=== PATIENT | male | born 1950 | race Caucasian/White ===

== ENCOUNTER 2022-06-18 14:04 | Emergency (ER) | payer OTHER ==
[2022-06-18 14:25] LABS: Hematocrit 39.5 % (39.6-49.0); MCV 83.9 fL (80-100); RBC Red Blood Cell Count 4.71 M/uL (4.33-5.43)
[2022-06-18 14:33] LABS: Protime INR 1.07
--- NOTE | 2022-06-18 14:34 | RAD REPORT ---
EXAM DESCRIPTION: RADChest Single View06/18/2022 2:19 pm CLINICAL HISTORY: CHEST PAIN COMPARISON: Head C Spine Cap Wo Con dated 06/18/2022 TECHNIQUE: Portable AP view of the chest. FINDINGS: The lungs are clear. No pneumothorax or effusion. The cardiomediastinal contours are unrem arkable. IMPRESSION: No acute cardiopulmonary process.
[2022-06-18 14:47] LABS: Potassium 4.8 mEq/L (3.5-5.1); Troponin High Sensitivity 8.9 pg/mL (<58.9)
[2022-06-18] MEDS ORDERED: INSULIN -REGULAR HUMAN 50 UNIT/0.5 ML ML ONE (15:07)
--- NOTE | 2022-06-18 15:25 | RAD REPORT ---
EXAM DESCRIPTION: CT - Head C Spine Cap Wo Con - 06/18/2022 2:34 pm CLINICAL HISTORY: fall COMPARISON: No comparisons TECHNIQUE: Head and cervical spine CT images were obtained without IV contrast. Chest, abdomen, and pelvis CT images were obtained also without IV contrast. Multiplanar reformats were generated and rev iewed. All CT scans are performed using dose optimization technique as appropriate and may include automated exposure control or mA/KV adjustment according to patient size. FINDINGS: CT HEAD: No intracranial hemorrhage, mass effect, or edema. No evidence of acute territorial infarct. No midli ne shift or abnormal fluid collection. The ventricles are normal in caliber and configuration for age . Basal cisterns are patent. Mastoid air cells are clear. Up to moderate mucosal thickening with aera geoffrey secretions in the left sphenoid sinus. Diminutive volume of the left maxillary sinus, with wall t hickening suggesting sequelae of chronic sinusitis. No acute skull fracture. CT CERVICAL SPINE: No acute cervical spine fracture or subluxation. Vertebral body heights are well maintained. Facet efrain ints are normal in alignment. No hyperattenuating canal hematoma. Prevertebral and paraspinous soft t issues are unremarkable. CT CHEST: No pneumothorax, pulmonary contusion or pleural fluid collection. No mediastinal hematoma and the aor ta and pulmonary arteries are unremarkable. No chest will mass or abnormal axillary finding. No displ aced rib fracture or other significant bony finding. CT ABDOMEN/ PELVIS: No evidence of traumatic injury to solid abdominal viscera. Gallbladder and biliary tree are unremark able. No bowel injury or significant finding. No free air, free fluid or abnormal fat stranding. No u rinary bladder abnormality. No significant bony finding. IMPRESSION: No acute traumatic findings in the head, cervical spine, chest, abdomen, or pelvis. Up to moderate inflammatory mucosal thickening in the paranasal sinuses.
[2022-06-18] MEDS ORDERED: ACETAMINOPHEN 500 MG TAB ONE (16:06)
--- NOTE | 2022-06-18 16:28 | ER ---
Nurse's Notes [facility] Name: Giovanni Lopez Age: 72 yrs Sex: Male : 1950 Arrival Date: 06/18/2022 Time: 14:05 Bed 6 Private MD: Diagnosis: Fall on same level, unspecified;Chest pain, unspecified-from fall;Laceration without foreign body of right hand, initial encounter Presentation: 06/18 14:01 Chief complaint: EMS states: Mechanical fall from standing to the ground, c/o left jl7 chest wall/rib pain with palpation and deep breath; skin tear to right hand, abrasion to lower lip. Care prior to arrival: None. Mechanism of Injury: Fall from standing position. Trauma event details: Injury occurred in the [facility], Injury occurred: in a public building. Injury occurred: June 18, 2022 Injury occurred at: 13:20. 14:01 Acuity: SOBEIDA 2 jl7 14:01 Method Of Arrival: EMS: [facility] jl7 14:14 Coronavirus screen: Client indicates they have traveled out of the [place] in the last 14 ss days. Ebola Screen: Patient denies exposure to infectious person. Patient denies travel to an Ebola-affected area in the 21 days before illness onset. Initial Sepsis Screen: Does the patient meet any 2 criteria? No. Patient's initial sepsis screen is negative. Does the patient have a suspected source of infection? No. Patient's initial sepsis screen is negative. Risk Assessment: Do you want to hurt yourself or someone else? Patient reports no desire to harm self or others. Onset of symptoms was June 18, 2022. Trauma Activation: Alert Physician: ED Physician; Name: Elvin; Notified At: 14:01; Arrived At: 14:01 Physician: General Surgeon; Name: ; Notified At: 14:01; Arrived At: Physician: Radiology; Name: Sabi; Notified At: 14:01; Arrived At: 14:02 Physician: Respiratory; Name: ; Notified At: 14:01; Arrived At: Physician: Lab; Name: ; Notified At: 14:01; Arrived At: Historical: - Allergies: 14:17 No Known Allergies; jl7 - Home Meds: 14:17 atorvastatin oral [Active]; Allopurinol Oral [Active]; Lisinopril Oral [Active]; jl7 Furosemide Oral [Active]; Glipizide Oral [Active]; cholecalciferol (vitamin D3) oral [Active]; amlodipine oral [Active]; pioglitazone oral [Active]; - PMHx: 14:17 Hypercholesterolemia; Gout; Hypertensive disorder; CHF; Diabetes mellitus; jl7 - Immunization history: Last tetanus immunization: - up to date. < 5 years ago. - Social history:: Smoking status: Patient denies any tobacco usage or history of. Screenin:01 Tuberculosis screening: No symptoms or risk factors identified. jl7 14:15 Abuse screen: Denies threats or abuse. Denies injuries from another. 14:22 [facility] ED Fall Risk Assessment (Adult) History of falling in the last 3 months, jl7 including since admission Yes- single mechanical fall (1 pt) Confusion or Disorientation No (0 pts) Intoxicated or Sedated No (0 pts) Impaired Gait No (0 pts) Mobility Assist Device Used No (0 pt) Altered Elimination No (0 pt) Score/Fall Risk Level 0 - 2 = Low Risk Oriented to surroundings, Maintained a safe environment, Educated pt \T\ family on fall prevention, incl call for assistance when getting out of bed, Assessed \T\ reinforced patient's understanding of fall precautions, Hourly rounding (assess needs \T\ fall precautionary measures) done. Nutritional screening: No deficits noted. Primary Survey: 14:01 NO uncontrolled hemorrhage observed. Breathing/Chest: Respiratory effort: spontaneous, jl7 shallow. Circulation: Hemorrhage: No external hemorrhage noted. Pulses: palpable right radial artery and left radial artery. Skin color: pink, Skin temperature: warm. Disability Client is alert. Exposure/Environment: All clothing and personal items were removed. Forensic evidence collection is not deemed to be indicated at this time. Items placed in patient belonging bag. There is no evidence of uncontrolled external bleeding. Obvious injury(ies) are noted at this time: skin tear to right hand A warming method has been applied: A warm blanket has been provided to the patient. Assessment: 14:01 General: Appears in no apparent distress. uncomfortable, Behavior is calm, cooperative, jl7 appropriate for age. Pain: Complains of pain in left chest wall/ribs Pain currently is 2 out of 10 on a pain scale. Neuro: Level of Consciousness is awake, alert, obeys commands, Oriented to person, place, time, situation. Cardiovascular: Patient's skin is warm and dry. Respiratory: Reports pain with respiration Airway is patent Respiratory effort is even, unlabored, Respiratory pattern is regular, symmetrical. Derm: Skin is pink, warm \T\ dry. 15:00 Reassessment: Patient appears in no apparent distress at this time. Patient and/or hb family updated on plan of care and expected duration. Pain level reassessed. Patient is alert, oriented x 3, equal unlabored respirations, skin warm/dry/pink. 16:00 Reassessment: Patient appears in no apparent distress at this time. Patient and/or hb family updated on plan of care and expected duration. Pain level reassessed. Patient is alert, oriented x 3, equal unlabored respirations, skin warm/dry/pink. Vital Signs: 14:01 BP 140 / 61; Pulse 100; Resp 19 S; Temp 97.9(O); Pulse Ox 99% on R/A; Weight 113.35 kg; jl7 Height 5 ft. 10 in. ; Pain 5/10; 14:14 BP 140 / 61; Pulse 99; Resp 20; Temp 98.6(TE); Pulse Ox 98% on R/A; Pain 2/10; ss 15:09 BP 140 / 69; Pulse 98; Resp 18; Pulse Ox 99% on R/A; hb 16:12 BP 16 / 62; Pulse 95; Resp 18; Pulse Ox 97% on R/A; hb 14:01 Body Mass Index 35.86 (113.35 kg, 177.8 cm) jl7 14:01 Pain Scale: Adult jl7 14:14 Pain Scale: Adult ss Bertah Coma Score: 14:01 Eye Response: spontaneous(4). Motor Response: obeys commands(6). Verbal Response: jl7 oriented(5). Total: 15. 15:09 Eye Response: spontaneous(4). Motor Response: obeys commands(6). Verbal Response: ss oriented(5). Total: 15. Trauma Score (Adult): 14:01 Eye Response: spontaneous(1); Verbal Response: oriented(1); Motor Response: obeys jl7 commands(2); Systolic BP: > 89 mm Hg(4); Respiratory Rate: 10 to 29 per min(4); Neely Score: 15; Trauma Score: 12 15:09 Eye Response: spontaneous(1); Verbal Response: oriented(1); Motor Response: obeys ss commands(2); Systolic BP: > 89 mm Hg(4); Respiratory Rate: 10 to 29 per min(4); Neely Score: 15; Trauma Score: 12 16:12 Eye Response: spontaneous(1); Verbal Response: oriented(1); Motor Response: obeys hb commands(2); Systolic BP: > 89 mm Hg(4); Respiratory Rate: 10 to 29 per min(4); Neely Score: 15; Trauma Score: 12 ED Course: 14:01 Thermoregulation: warm blanket given to patient. jl7 14:01 Patient has correct armband on for positive identification. Placed in gown. Bed in low jl7 position. Call light in reach. Side rails up X 1. 14:05 Patient arrived in ED. hb 14:05 Nav Hand PA is PHCP. cp 14:05 Marco Antonio Oconnor MD is Attending Physician. cp 14:10 Triage completed. jl7 14:13 Catarina Vaughan, RN is Primary Nurse. ss 14:13 Inserted saline lock: 20 gauge in right antecubital area, using aseptic technique. ss Blood collected. Patient maintains SpO2 saturation greater than 95% on room air. 14:17 Arm band placed on right wrist. jl7 14:21 XRAY Chest (1 view) In Process Unspecified. EDMS 14:36 CT Traumagram (Head C Spine CAP wo con) In Process Unspecified. EDMS 15:55 XRAY Hand RIGHT 3 View In Process Unspecified. EDMS Administered Medications: 15:11 Drug: Insulin Regular Human IVP 10 units {Co-Signature: hitesh (Catarina Vaughan RN).} Route: hb IVP; Site: right antecubital; 16:11 Drug: Acetaminophen PO 1000 mg Route: PO; hb Medication: 14:22 VIS not applicable for this client. jl7 Point of Care Testing: Blood Glucose: 16:11 Blood Glucose: 313 mg/dL; hb Ranges: Outcome: 16:28 Discharge ordered by MD. cp Signatures: Dispatcher [employer] EDCatarina Rodriguez RN RN ss Nav Hand PA PA cp Baxter, Heather, RN RN Dm Flannery RN RN jl7 Catarina Vaughan RN ss Corrections: (The following items were deleted from the chart) 16:12 16:12 Reassessment: Patient appears in no apparent distress at this time. Patient hb and/or family updated on plan of care and expected duration. Pain level reassessed. Patient is alert, oriented x 3, equal unlabored respirations, skin warm/dry/pink. hb 16:13 15:09 BP 140 / 69; Pulse 98bpm; Resp 18bpm; Pulse Ox 99% RA; ss hb 16:13 16:12 BP 146 / 62; Pulse 95bpm; Resp 18bpm; Pulse Ox 97% RA; hb hb
--- NOTE | 2022-06-18 16:29 | EDPHYS ---
Physician Documentation [facility] Name: Giovanni Lopez Age: 72 yrs Sex: Male : 1950 Arrival Date: 06/18/2022 Time: 14:05 Bed 6 Private MD: ED Physician Marco Antonio Oconnor HPI: 06/18 14:10 This 72 yrs old Male presents to ER via EMS with complaints of Fall Injury. cp Historical: - Allergies: 14:17 No Known Allergies; jl7 - Home Meds: 14:17 atorvastatin oral [Active]; Allopurinol Oral [Active]; Lisinopril Oral [Active]; jl7 Furosemide Oral [Active]; Glipizide Oral [Active]; cholecalciferol (vitamin D3) oral [Active]; amlodipine oral [Active]; pioglitazone oral [Active]; - PMHx: 14:17 Hypercholesterolemia; Gout; Hypertensive disorder; CHF; Diabetes mellitus; jl7 - Immunization history: Last tetanus immunization: - up to date. < 5 years ago. - Social history:: Smoking status: Patient denies any tobacco usage or history of. Vital Signs: 14:01 BP 140 / 61; Pulse 100; Resp 19 S; Temp 97.9(O); Pulse Ox 99% on R/A; Weight 113.35 kg; jl7 Height 5 ft. 10 in. ; Pain 5/10; 14:14 BP 140 / 61; Pulse 99; Resp 20; Temp 98.6(TE); Pulse Ox 98% on R/A; Pain 2/10; ss 15:09 BP 140 / 69; Pulse 98; Resp 18; Pulse Ox 99% on R/A; hb 16:12 BP 16 / 62; Pulse 95; Resp 18; Pulse Ox 97% on R/A; hb 14:01 Body Mass Index 35.86 (113.35 kg, 177.8 cm) jl7 14:01 Pain Scale: Adult jl7 14:14 Pain Scale: Adult ss [place] Coma Score: 14:01 Eye Response: spontaneous(4). Motor Response: obeys commands(6). Verbal Response: jl7 oriented(5). Total: 15. 15:09 Eye Response: spontaneous(4). Motor Response: obeys commands(6). Verbal Response: ss oriented(5). Total: 15. Trauma Score (Adult): 14:01 Eye Response: spontaneous(1); Verbal Response: oriented(1); Motor Response: obeys jl7 commands(2); Systolic BP: > 89 mm Hg(4); Respiratory Rate: 10 to 29 per min(4); [place] Score: 15; Trauma Score: 12 15:09 Eye Response: spontaneous(1); Verbal Response: oriented(1); Motor Response: obeys ss commands(2); Systolic BP: > 89 mm Hg(4); Respiratory Rate: 10 to 29 per min(4); [place] Score: 15; Trauma Score: 12 16:12 Eye Response: spontaneous(1); Verbal Response: oriented(1); Motor Response: obeys hb commands(2); Systolic BP: > 89 mm Hg(4); Respiratory Rate: 10 to 29 per min(4); Bertha Score: 15; Trauma Score: 12 MDM: 14:08 Patient medically screened. 06/18 14:07 Order name: Basic Metabolic Panel; Complete Time: 14:49 06/18 14:49 Interpretation: Normal except: NA 132; GLUC 326; BUN 56; CRE 2.17; GFR 32. 06/18 14:07 Order name: CBC with Diff; Complete Time: 14:49 06/18 14:52 Interpretation: Normal except: WBC 12.30; HGB 12.7; HCT 39.5; RDW 16.5; NEUT A 8.3; MPV cp 7.0. 06/18 14:07 Order name: PT-INR; Complete Time: 14:49 06/18 14:07 Order name: Troponin HS; Complete Time: 14:49 06/18 14:07 Order name: EKG; Complete Time: 14:09 06/18 14:07 Order name: Cardiac monitoring; Complete Time: 14:14 06/18 14:07 Order name: EKG - Nurse/Tech; Complete Time: 14:51 cp 06/18 14:07 Order name: IV Saline Lock; Complete Time: 14:13 cp 06/18 14:07 Order name: Labs collected and sent; Complete Time: 14:13 06/18 14:07 Order name: O2 Per Protocol; Complete Time: 14:13 06/18 14:07 Order name: O2 Sat Monitoring; Complete Time: 14:13 cp 06/18 14:07 Order name: Ptt, Activated; Complete Time: 14:49 cp 06/18 14:07 Order name: XRAY Chest (1 view); Complete Time: 14:49 cp 06/18 15:15 Interpretation: Report review. 06/18 14:18 Order name: CT Traumagram (Head C Spine CAP wo con); Complete Time: 15:52 cp 06/18 14:52 Order name: XRAY Hand RIGHT 3 View cp 06/18 16:27 Order name: Vital Signs: please update 06/18 16:21 Order name: Glucose, Ancillary Testing; Complete Time: 16:23 EDMS 06/18 16:23 Interpretation: Reviewed. cp Administered Medications: 15:11 Drug: Insulin Regular Human IVP 10 units {Co-Signature: ss (Catarina Vaughan RN).} Route: hb IVP; Site: right antecubital; 16:11 Drug: Acetaminophen PO 1000 mg Route: PO; hb Point of Care Testing: Blood Glucose: 16:11 Blood Glucose: 313 mg/dL; hb Ranges: Critical Glucose Levels:Adult <50 mg/dl or >400 mg/dl <40 mg/dl or >180 mg/dl Disposition Summary: 06/18/22 16:28 Discharge Ordered Location: Home cp Problem: new cp Symptoms: have improved cp Condition: Stable cp Diagnosis - Fall on same level, unspecified cp - Chest pain, unspecified - from fall cp - Laceration without foreign body of right hand, initial encounter cp Followup: cp - With: Private Physician - When: 2 - 3 days - Reason: Recheck today's complaints Forms: - Medication Reconciliation Form cp - Thank You Letter cp - Antibiotic Education cp - Prescription Opioid Use cp Signatures: Dispatcher [employer] EDMS Nav Hand PA PA cp Joann Pederson RN RN Dm Ovalles RN RN jl7 Catarina Vaughan RN ss Corrections: (The following items were deleted from the chart) 14:26 14:08 Head C Spine CAP W Con+[email or web address].[email or web address] ordered. EDMS EDMS
--- NOTE | 2022-06-18 16:58 | RAD REPORT ---
EXAM DESCRIPTION: RAD - Hand Right 3 View - 06/18/2022 3:53 pm CLINICAL HISTORY: PAIN COMPARISON: No comparisons TECHNIQUE: Right hand, 3 views. FINDINGS: No fracture is identified. There is no dislocation or periosteal reaction noted. No foreign body or other soft tissue abnormalit y. Ectatic fraying along the ring finger proximal phalanx limits evaluation of some of the bony deta ils. Vascular calcifications. At least moderate degenerative changes at the thumb base. IMPRESSION: No acute osseous abnormality. Moderate degenerative changes at thumb base.
[2022-06-18 17:55] VITALS: TEMP 98.6
[2022-06-18 17:58] VITALS: BP 129/62; O2SAT 97
--- NOTE | 2022-06-19 17:36 | EKG ---
Test Date: 2022-06-18 Test Time: 14:42:35 Administrative Nursing Supervisor: SB MEASUREMENT RESULTS: Intervals: Rate: 100 NC: 138 QRSD: 78 QT: 350 QTc: 451 [place]: P: 76 NC: 138 QRS: -31 T: 90 INTERPRETIVE STATEMENTS: Normal sinus rhythm Left axis deviation Septal infarct, age undetermined Abnormal ECG No previous ECG available for comparison Electronically Signed On 06-19-22 17:35:05 CDT by Daryl Ochoa
== END 2022-06-18 16:46 | disposition home or self-care (01) ==
LOC: ER 14:04
DX: R07.89 Other chest pain (principal); S61.411A Laceration without foreign body of right hand, initial encounter; W18.30XA Fall on same level, unspecified, initial encounter; I10 Essential (primary) hypertension; I50.9 Heart failure, unspecified; E11.9 Type 2 diabetes mellitus without complications
CPT/HCPCS: 93005; 85025; 80048; 36415; 85610; 82565; 82947; 85730; 84484; 70450; 71250; 72125; 71045; 73130; 96374; 99284; J1815

== ENCOUNTER 2024-02-01 10:26 | Emergency (ER) | payer MEDICARE ==
--- OUTSIDE RECORDS SUMMARY | 2024-02-01 10:30 | XMS REPORT | Continuity of Care Document ---
Author Name Unknown Address [address] [facility] [address] [place] [address] [facility] thconnect Address [address] 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 Name Role Phone [place] Beck [facility] Primary Car e Physician Unavailable JORDAN KAUFFMAN Attending Clinician Unavailabl e Doctor Unassigned, Woody Attending Clinician U Vikram Hinton MD Attending Clinician [phone] Nella DE JESUS Attending Clinician Unavailable Nella Thurston Attending Clinician [phone] Tiff Arenas Attending Clinician Nella DE JESUS Admitting Clinician Unavailable Payers Payer Name Policy Type Policy Number Effective Date Expirati on Date Source MEDICARE PART A \\T\\ B [id number] 2016 00:00:00 [facility] [id number] 2017 00:00:00 [employer] MEDIC[employer] ADVANTAGE PLAN [id number] [employer] (MEDICARE REPLACEMENT HMO) [id number] 2023 00:00:00 Problems Condition Name Condition Details Condition Category Status Onset Date Resolution Date Last Treatment Date Treating Clinician Comments Source Mild hyperchole sterolemia Mild hyperchole sterolemia Disease Active 2015-04 00:00: 00 [facility] Gout Gout Disease Active 04-28 00:00: 00 [facility] Hypertensi on Hypertensi on Disease Active 04-28 00:00: 00 [facility] Diabetes Diabetes Disease Active 04-28 00:00: 00 [facility] Allergies, Adverse Reactions, Alerts Allergy Name Allergy Type Status Severity Reaction(s) Onset Date Inactive Date Treating Clinician Comments Source Sulfa (Sulfona mide Antibiot ics) Propensi ty to adverse reaction s Active Unknown - See comments 04-28 00:00: 00 [facility] Codeine Propensi ty to adverse reaction s Active Unknown - See comments 04-28 00:00: 00 [facility] Sulfa (Sulfona mide Antibiot ics) Propensi ty to adverse reaction s Active Unknown - See comments 04-28 00:00: 00 [facility] CODEINE DRUG INGREDI Active Unknown-Cmnt 04-28 00:00: 00 [facility] SULFA (SULFONA MIDE ANTIBIOT ICS) Drug Class Active Unknown-Cmnt 04-28 00:00: 00 [facility] Social History Social Habit Start Date Stop Date Quantity Comments Source Gender identity [facility] Sexual orientation U [facility] Exposure to SARS-CoV-2 (event) Not sure [facility] History of tobacco use Snuff User [facility] History SDOH Alcohol Frequency [facility] History SDOH Alcohol Std Drinks [facility] History SDOH Alcohol Binge [facility] Alcohol intake 2021-10-11 00:00:00 2021-10-11 00:00:00 0 /d [facility] History of Social function 2021-10-11 00:00:00 2021-10-11 00:00:00 [facility] Tobacco Comment 2015-04-28 00:00:00 2015-04-28 00:00:00 1 can lasts 3-4 days; 30 years [facility] Alcohol Comment 2015-04-28 00:00:00 2015-04-28 00:00:00 rare [facility] Cigarettes smoked current (pack per day) - Reported 2015-04-28 00:00:00 2015-04-28 00:00:00 [facility] Cigarette pack-years 2015-04-28 00:00:00 2015-04-28 00:00:00 [facility] Tobacco use and exposure 2015-04-28 00:00:00 2015-04-28 00:00:00 User of smokeless tobacco [facility] Sex Assigned At 1950 00:00:00 1950 00:00:00 [facility] Smoking Status Start Date Stop Date Source Ex-smoker 2015-04-28 00:00:00 2015-04-28 [facility]00[facility] Ordered Medication Name Filled Medication Name Start Date Stop Date Current Medication? Ordering Clinician Indication Dosage Frequency Signature (SIG) Comments Components Source acetaminoph en (TYLENOL) tablet 1,000 mg 05-23 02:15: 00 05-23 02:08 :00 No 1000mg 1,000 mg, Oral, ONCE, 1 dose, On 05/22/21 at 2015, [facility] HYDROcodone -acetaminop hen (NORCO) 10-325 mg tablet 1 tablet 2019-04 05:15: 00 02-08 04:13 :00 No 1{tbl} 1 tablet, Oral, ONCE NOW, 1 dose, 02/08/20 at 2315, [facility] ondansetron (ZOFRAN (PF)) injection 4 mg 2019-04 03:45: 00 02-08 02:52 :00 No 4mg 4 mg, Slow IV Push, ONCE, 1 dose, 02/08/20 at 2145, [facility] morpHINE injection 4 mg 2019-04 03:45: 00 02-08 02:52 :00 No 4mg 4 mg, Slow IV Push, ONCE, 1 dose, 02/08/20 at 2145, [facility] traMADoL (ULTRAM) 50 mg tablet 2019-04 00:00: 00 02-15 05:59 :00 No [id number] 100mg Take 2 tablets by mouth every 6 (six) hours as needed for Pain (scale 7-10) for up to 7 days. Indication s: acute pain [facility] LISINOPRIL 40 mg tablet 2016-04 00:00: 00 Yes TAKE 1 TABLET BY MOUTH EVERY MORNING [facility] lisinopril (PRINIVIL,Z ESTRIL) 40 mg tablet 2015-04 00:00: 00 Yes [id number] 40mg Take 1 tablet by mouth every morning. [facility] glipiZIDE XL (GLUCOTROL XL) 5 mg 24 hr tablet 2015-04 00:00: 00 Yes [id number] TAKE 1 TABLET BY MOUTH DAILY WITH BREAKFAST [facility] metFORMIN (GLUCOPHAGE ) 500 mg tablet 2015-04 00:00: 00 Yes [id number] 500mg Take 1 tablet by mouth 2 (two) times daily. [facility] atorvastati n (LIPITOR) 10 mg tablet 2015-04 00:00: 00 Yes [id number] 10mg Take 1 tablet by mouth at bedtime. [facility] Vital Signs Vital Name Observation Time Observation Value Comments S ource Systolic blood pressure 2021-05-23 02:00:00 157 mm[Hg] [facility] Diastolic blood pressure 2021-05-23 02:00:00 74 mm[Hg] [facility] Heart rate 2021-05-23 02:00:00 87 /min [facility] Respiratory rate 2021-05-23 02:00:00 18 /min [facility] Oxygen saturation in Arterial blood by Pulse oximetry 2021-05-23 02:00:00 98 /min [facility] Body temperature 2021-05-22 23:20:00 36.67 Eveline [facility] Body height 2021-05-22 23:20:00 177.8 cm [facility] Body weight 2021-05-22 23:20:00 108.863 kg [facility] BMI 2021-05-22 23:20:00 34.44 kg/m2 [facility] Systolic blood pressure 2020-02-09 02:56:00 158 mm[Hg] [facility] Diastolic blood pressure 2020-02-09 02:56:00 65 mm[Hg] [facility] Heart rate 2020-02-09 02:56:00 89 /min [facility] Respiratory rate 2020-02-09 02:56:00 18 /min [facility] Oxygen saturation in Arterial blood by Pulse oximetry 2020-02-09 02:56:00 98 /min [place] [facility] BMI 2020-02-09 01:19:00 33.72 kg/m2 [facility] Body temperature 2020-02-09 01:19:00 37.11 Eveline [facility] Body height 2020-02-09 01:19:00 177.8 cm [facility] Body weight 2020-02-09 01:19:00 106.595 kg [facility] Procedures Procedure Date / Time Performed Performing Clinician Source AUTHORIZATION FOR RELEASE OF PHI 2022-09-29 05:01:00 Doctor Unassigned, Woody [facility] DME/SUPPLY JUSTIFICATION 2022-09-14 05:01:00 Doc tor Unassigned, Woody [facility] URINALYSIS 2021-05-23 00:20:00 [facility] 2021-05-23 00:16:00 Nella De Jesus [facility] COVID-19 (ID NOW RAPID TESTING) 2021-05-23 00:16:00 Nella De Jesus [facility] MAGNESIUM 2021-05-23 00:16:00 [facility] TROPONIN I 2021-05-23 00:16:00 [facility] COMP. METABOLIC PANEL ([id number]) 2021-05-23 00:16:00 Nella De Jesus [facility] CBC WITH DIFF 2021-05-23 00:16:00 Nella De Jesus [facility] XR CHEST 1 VW 2021-05-22 23:55:42 Nella De Jesus [facility] CONSENT/REFUSAL FOR DIAGNOSIS AND TREATMENT 2021-05-22 23:13:29 Doctor Unassigned, Woody [facility] NOTICE OF PRIVACY PRACTICES 2021-05-22 23:13:08 Doctor Unassigned, Woody [facility] CT ABDOMEN PELVIS WO CONTRAST 2020-02-09 03:12:47 Tiff Vance [facility] XR CHEST 1 VW 2020-02-09 02:49:18 Tiff Vance [facility] XR RIBS 3 VW RIGHT 2020-02-09 02:49:18 Wendie Vance [facility] URINALYSIS 2020-02-09 02:02:00 Tiff Vance [facility] CONSENT/REFUSAL FOR DIAGNOSIS AND TREATMENT 2020-02-09 01:13:03 Doctor Unassigned, Woody [facility] NOTICE OF PRIVACY PRACTICES 2020-02-09 01:12:44 Doctor Unassigned, Woody [facility] Encounters Start Date/Time End Date/Time Encounter Type Admission Type Attending [facility] Care Facility Care Department Encounter ID Source 2021-01-29 03:56:53 Emergency [facility] [id number] [facility] 2023-09-27 00:00:00 2023-09-27 00:00:00 Outpatient JORDAN AGUILA [facility] [id number] [facility] 2023-02-23 00:00:00 2023-02-23 00:00:00 Outpatient [facility] [id number] [facility] 2023-01-31 00:00:00 2023-01-31 00:00:00 [facility] [id number] [facility] 2023-01-16 00:00:00 2023-01-16 00:00:00 Outpatient [facility] [id number] [facility] 2022-09-29 00:00:00 2022-09-29 00:00:00 Orders Only Doctor Unassigned, Woody [facility] [id number] [facility] 2022-09-14 00:00:00 2022-09-14 00:00:00 Orders Only Doctor Unassigned, Woody [facility] [id number] [facility] 2022-09-13 00:00:00 2022-09-13 00:00:00 Telephone Vikram Millan [facility] [id number] [facility] 2021-05-22 17:33:00 2021-05-22 20:14:00 Emergency X Nella DE JESUS [facility] ERT [id number] [facility] 2021-05-22 17:33:00 2021-05-22 20:14:00 Emergency Nella De Jesus [facility] [id number] [facility] 2020-02-08 19:21:00 2020-02-08 22:42:00 Emergency Tiff Vance [facility] [id number] [facility] Results Test Description Test Time Test Comments Results Result Co mments Source [facility] [id number] 01:01:15* Test Item Value Reference Range Interpretation Comme nts NT-proBNP (test code = 6183553386) 403 pg/mL See_Comment H [Automated message] The system which generated this result transmitted reference range: <=125. The reference range was not used to interpret this result as normal/abnormal. EUGENIA (test code = EUGENIA) Biotin has been reported to cause a negative bias, interpret results relative to patient's use of biotin. Lab Interpretation (test code = 91178-6) Abnormal [facility]22-[facility]-21 00:52:57* Test Item Value Reference Range Interpretation Comme nts MAGNESIUM (test code = 0315145787) 1.8 mg/dL 1.7-2.4 Lab Interpretation (test cod e = 89512-0) Normal [facility] MET[facility]OLIC PAN[facility] (82314)2021-05-23 00:52:37* Test Item Value Reference Range Interpretation Comme nts NA (test code = 2073284096) 134 mmol/L 135-145 L K (test code = 4827519670) 5.1 mmol/L 3.5-5.0 H CL (test code = 8904790847) 105 mmol/L 98-108 CO2 TOTAL (test code = 1383443280) 20 mmol/L 23-31 L AGAP (test code = 2355043324) 2-16 BUN (test code = 3250619746) 50 mg/dL 7-23 H GLUCOSE (test code = 1603250155) 301 mg/dL 70-110 H CREATININE (test code = 1373607438) 1.97 mg/dL 0.60-1.25 H TOTAL BILI (test code = 8534976381) 0.5 mg/dL 0.1-1.1 CALCIUM (test code = 7702667094) 9.1 mg/dL 8.6-10.6 T PROTEIN (test code = 7904851480) 8.2 g/dL 6.3-8.2 ALBUMIN (test code = 1589493030) 4.9 g/dL 3.5-5.0 ALK PHOS (test code = 2608269064) 99 U/L 34-122 ALTv (test code = 1742-6) 21 U/L 5-50 AST(SGOT) (test code = 9764071289) 24 U/L 13-40 eGFR (test code = 5376043582) mL/min/1.73m2 EUGENIA (test code = EUGENIA) Association of Glomerular Filtration Rate (GFR) and Staging of Kidney Disease* + --+ --+ ------+| GFR (mL/min/1.73 m2) ?| With Kidney Damage ?| ?Without Kidney Damage+ --------+ --------+ +| ?>90 ?| ?Stage one ?| ? Normal ?+ ---+ ---+ -------+| ?60-89 ?| ?Stage two ?| ? Decreased GFR ? + --+ --+ ------+| ?30-59 ?| ?Stage three ?| ? Stage three ? + --+ --+ ------+| ?15-29 ?| ?Stage four ? | ? Stage four ?+ ---+ ---+ -------+| ?<15 (or dialysis) ? ?| ?Stage five ? | ? Stage five ?+ ---+ ---+ -------+ *Each stage assumes the associated GFR level has been in effect for at least three months. ?Stages 1 to 5, with or without kidney disease, indicate chronic kidney disease. Notes: Determination of stages one and two (with eGFR >59mL/min/1.73 m2) requires estimation of kidney damage for at least three months as defined by structural or functional abnormalities of the kidney, manifested by either:Pathological abnormalities or Markers of kidney damage (including abnormalities in the composition of the blood or urine or abnormalities in imaging tests). Lab Interpretation (test code = 65395-1) Abnormal [facility] WITH [id number] 00:42:34* Test Item Value Reference Range Interpretation Comme nts WBC (test code = 6690-2) See_Comment H [Automated Nonpareil] The system which generated this result transmitted reference range: 4.20 - 10.70 10*3/?L. The reference range was not used to interpret this result as normal/abnormal. RBC (test code = 789-8) See_Comment [[employer] Pictures / [employer]] The system which generated this result transmitted reference range: 4.26 - 5.52 10*6/?L. The reference range was not used to interpret this result as normal/abnormal. HGB (test code = 718-7) 12.4 g/dL 12.2-16.4 HCT (test code = 4544-3) 38.4 % 38.4-49.3 MCV (test code = 787-2) 85.0 fL 81.7-95.6 MCH (test code = 785-6) 27.4 pg 26.1-32.7 MCHC (test code = 786-4) 32.3 g/dL 31.2-35.0 RDW-SD (test code = 44570-5) 48.0 fL 38.5-51.6 RDW-CV (test code = 788-0) 15.5 % 12.1-15.4 H PLT (test code = 777-3) See_Comment [Automated messa ge] The system which generated this result transmitted reference range: 150 - 328 10*3/?L. The reference range was not used to interpret this result as normal/abnormal. MPV (test code = 80131-2) 8.7 fL 9.8-13.0 L NRBC/100 WBC (test code = 0673664864) See_Comment [Automated AiMeiWei ssage] The system which generated this result transmitted reference range: 0.0 - 10.0 /100 WBCs. The reference range was not used to interpret this result as normal/abnormal. NRBC x10^3 (test code = 5978556802) <0.01 See_Comment [Automated messa ge] The system which generated this result transmitted reference range: 10*3/?L. The reference range was not used to interpret this result as normal/abnormal. GRAN MAT (NEUT) % (test code = 770-8) 70.6 % IMM GRAN % (test code = 4387299209) 0.70 % LYMPH % (test code = 736-9) 17.7 % MONO % (test code = 5905-5) 8.2 % EOS % (test code = 713-8) 2.4 % BASO % (test code = 706-2) 0.4 % GRAN MAT x10^3(ANC) (test code = 1824793901) 8.91 10*3/uL 1.99-6.95 H IMM GRAN x10^3 (test code = 7246668958) 0.09 10*3/uL 0.00-0.06 H LYMPH x10^3 (test code = 731-0) 2.23 10*3/uL 1.09-3.23 MONO x10^3 (test code = 742-7) 1.04 10*3/uL 0.36-1.02 H EOS x10^3 (test code = 711-2) 0.30 10*3/uL 0.06-0.53 BASO x10^3 (test code = 704-7) 0.05 10*3/uL 0.01-0.09 Lab Interpretation (test code = 88857-9) Abnormal [facility] 02:22:00* Test Item Value Reference Range Interpretation Comme nts APPEARANCE (test code = 1973885796) Clear Clear COLOR (test code = 4392255482) Yellow Yellow PH (test code = 1267701426) 4.8-8.0 SP GRAVITY (test code = 3963930284) 1.003-1.030 GLU U QUAL (test code = 8225884620) 50 mg/dL Normal A BLOOD (test code = 1170166542) 1+ Negative A KETONES (test code = 4021896314) Negative Negative PROTEIN (test code = 2887-8) 30 mg/dL Negative A UROBILIN (test code = 4148576566) Normal Normal BILIRUBIN (test code = 6298152306) Negative Negative NITRITE (test code = 1712029883) Negative Negative LEUK YUMI (test code = 7115602289) Negative Negative RBC/HPF (test code = 8390401302) See_Comment [Automated [employer]ocket Designa ge] The system which generated this result transmitted reference range: 0 - 3 HPF. The reference range was not used to interpret this result as normal/abnormal. WBC/HPF (test code = 5574513405) <1 See_Comment [Automated [employer] ge] The system which generated this result transmitted reference range: 0 - 5 HPF. The reference range was not used to interpret this result as normal/abnormal. BACTERIA (test code = 3579963106) Negative Negative MUCOUS (test code = 2598795145) Slight Negative LPF A SQ EPITH (test code = 1017793654) <1 HPF Lab Interpretation (test code = 29355-4) Abnormal [facility]"
[2024-02-01] MEDS ORDERED: KETOROLAC 30 MG/ML INJ ONE (11:20)
[2024-02-01 11:57] LABS: Specific Gravity 1.012 (1.005-1.030); Sqamous Epithelial None Seen /HPF (None Seen); Urine Bacteria None Seen /HPF (<20); Urine Bilirubin NEGATIVE (Negative); Urine Blood 1+ (Negative); Urine Clarity Clear (Clear); Urine Color Dark-Yellow (Yellow); Urine Culture Reflex Order NOT NEEDED; Urine Glucose TRACE (Negative); Urine Ketones NEGATIVE (Negative); Urine Micro Reflex YN NO BILL MICROSCOPIC; Urine Mucus Slight /HPF (None Seen); Urine Nitrite 1+ (Negative); Urine Protein 2+ (Negative); Urine RBC 21-50 /HPF (None Seen); Urine Urobilinogen Normal (Normal); Urine pH 6.5 (5.0-7.0)
[2024-02-01] MEDS ORDERED: CIPROFLOXACIN HCL 500 MG TAB ONE (12:10)
--- NOTE | 2024-02-01 13:01 | EDPHYS ---
Physician Documentation [facility] Name: Giovanni Lopez Age: 73 yrs Sex: Male : 1950 Arrival Date: 02/01/2024 Time: 10:26 Bed 15 Private MD: ED Physician Antione Del Cid HPI: 01/31 11:51 This 73 yrs old Male presents to ER via Ambulatory with complaints of Urinary ec2 Problem. 11:51 Patient arrives today for dysuria as well as urinary frequency no fevers or chills, no ec2 nausea or vomiting... Historical: - Allergies: 10:45 hydrocodone; aa5 10:45 Sulfa (Sulfonamide Antibiotics); aa5 - PMHx: 10:44 CHF; diabetes mellitus; Gout; Hypercholesterolemia; Hypertensive disorder; aa5 - Immunization history:: Adult Immunizations unknown. - Infectious Disease History:: Denies. - Social history:: Smoking status: Patient denies any tobacco usage or history of. ROS: 11:51 Constitutional: as per hpi ec2 Exam: 11:52 Constitutional: GEN: NAD Head: atraumatic Eyes: EOMI Ears: External ears are ec2 normal. CV: Slight tachycardia LUNGS: no respiratory distress ABD: non-distended SKIN: no evidence of rashes MSK: no evidence of trauma Vital Signs: 10:46 BP 154 / 75; Pulse 105; Resp 20 S; Temp 98(O); Pulse Ox 98% on R/A; Weight 110.22 kg aa5 (R); Height 5 ft. 10 in. (R); 12:14 BP 106 / 65; Pulse 86; Resp 15; Pulse Ox 99% ; ko1 13:05 BP 126 / 71; Pulse 88; Resp 16; Temp 98.4; Pulse Ox 99% ; me1 10:46 Body Mass Index 34.87 (110.22 kg, 177.8 cm) aa5 MDM: 10:48 Medical Screening Exam initiated ec2 11:52 Data reviewed: vital signs. ED course: Patient arrives today for evaluation of dysuria. ec2 Examination is markable for slight tachycardia. Perform straight cath, send urine studies.. 01/31 10:48 Order name: UAM; Complete Time: 12:01 ec2 01/31 11:12 Order name: Cath; Complete Time: 11:46 ec2 11/01 12:05 Order name: Vital Signs; Complete Time: 12:18 ec2 Administered Medications: 11:21 Drug: Ketorolac IM 30 mg IM once Route: IM; Site: left deltoid; ko1 11:51 Follow up: Response: No adverse reaction ko1 12:18 Drug: Ciprofloxacin PO 500 mg PO once Route: PO; ko1 13:03 Follow up: Response: No adverse reaction me1 Disposition Summary: 02/01/24 13:00 Discharge Ordered Condition: Stable ec2 Diagnosis - UTI/ Urinary tract infection, site not specified ec2 Followup: ec2 - With: Private Physician - When: - Reason: Re-evaluation by your physician Discharge Instructions: - Discharge Summary Sheet ec2 - Urinary Tract Infection, Adult ec2 Forms: - Medication Reconciliation Form ec2 - Antibiotic Education ec2 - Prescription Opioid Use ec2 - Patient Portal Instructions ec2 - Leadership Thank You Letter ec2 Prescriptions: - Cipro 500 mg Oral Tablet - take 1 tablet ORAL route every 12 hours for 7 days; 14 tablet; Refills: 0, ec2 Product Selection Permitted Signatures: Dispatcher [employer] Tatianna Beltre RN RN aa5 Sandi Chacko RN RN ko1 Antione Del Cid MD MD ec2 Sabi Palmer RN me1
--- NOTE | 2024-02-01 13:01 | ER ---
Nurse's Notes [facility] Name: Giovanni Lopez Age: 73 yrs Sex: Male : 1950 Arrival Date: 02/01/2024 Time: 10:26 Bed 15 Private MD: Diagnosis: UTI/ Urinary tract infection, site not specified Presentation: 01/31 10:46 Chief complaint: Patient states: burning with urination, suprapubic pain, and inability aa5 to empty bladder, pt states "I can only pee a little bit at a time and I am hurting bad". Coronavirus screen: At this time, the client does not indicate any symptoms associated with coronavirus-19. Ebola Screen: Patient denies travel to an Ebola-affected area in the 21 days before illness onset. Initial Sepsis Screen: Does the patient meet any 2 criteria? HR > 90 bpm. Does the patient have a suspected source of infection? No. Patient's initial sepsis screen is negative. Risk Assessment: Do you want to hurt yourself or someone else? Patient reports no desire to harm self or others. Onset of symptoms was January 2024. 10:46 Method Of Arrival: Ambulatory aa5 10:46 Acuity: SOBEIDA 3 aa5 Historical: - Allergies: 10:45 hydrocodone; aa5 10:45 Sulfa (Sulfonamide Antibiotics); aa5 - PMHx: 10:44 CHF; diabetes mellitus; Gout; Hypercholesterolemia; Hypertensive disorder; aa5 - Immunization history:: Adult Immunizations unknown. - Infectious Disease History:: Denies. - Social history:: Smoking status: Patient denies any tobacco usage or history of. Screenin:00 [facility] ED Fall Risk Assessment (Adult) History of falling in the last 3 months, ko1 including since admission No falls in past 3 months (0 pts) Confusion or Disorientation No (0 pts) Intoxicated or Sedated No (0 pts) Impaired Gait No (0 pts) Mobility Assist Device Used No (0 pt) Altered Elimination No (0 pt) Score/Fall Risk Level 0 - 2 = Low Risk Oriented to surroundings, Maintained a safe environment, Educated pt \\T\\ family on fall prevention, incl call for assistance when getting out of bed, Assessed \\T\\ reinforced patient's understanding of fall precautions, Hourly rounding (assess needs \\T\\ fall precautionary measures) done. Abuse screen: Denies threats or abuse. Denies injuries from another. Nutritional screening: No deficits noted. Tuberculosis screening: No symptoms or risk factors identified. Assessment: 12:05 General: Appears uncomfortable, well developed, well nourished, Behavior is calm, me1 cooperative, appropriate for age, Reports burning with urination, suprapubic pain, and inability to empty bladder, pt states "I can only pee a little bit at a time and I am hurting bad". Pain: Complains of pain in suprapubic area Pain does not radiate. Pain currently is 7 out of 10 on a pain scale. Quality of pain is described as crampy, Pain began gradually, Is continuous. Neuro: Level of Consciousness is awake, alert, obeys commands, Oriented to person, place, time, situation, Appropriate for age. Cardiovascular: Patient's skin is warm and dry. Respiratory: Airway is patent Respiratory effort is even, unlabored, Respiratory pattern is regular, symmetrical. GI: No signs and/or symptoms were reported involving the gastrointestinal system. : Reports inability to void, pain in suprapubic area. EENT: No signs and/or symptoms were reported regarding the EENT system. Derm: Skin is intact, is healthy with good turgor, Skin is pink, warm \\T\\ dry. Musculoskeletal: No signs and/or symptoms reported regarding the musculoskeletal system. Vital Signs: 10:46 BP 154 / 75; Pulse 105; Resp 20 S; Temp 98(O); Pulse Ox 98% on R/A; Weight 110.22 kg aa5 (R); Height 5 ft. 10 in. (R); 12:14 BP 106 / 65; Pulse 86; Resp 15; Pulse Ox 99% ; ko1 13:05 BP 126 / 71; Pulse 88; Resp 16; Temp 98.4; Pulse Ox 99% ; me1 10:46 Body Mass Index 34.87 (110.22 kg, 177.8 cm) aa5 ED Course: 10:29 Patient arrived in ED. im 10:44 Arm band placed on. aa5 10:47 Triage completed. aa5 10:48 Antione Del Cid MD is Attending Physician. ec2 10:54 Sandi Chacko RN is Primary Nurse. ko1 11:45 No provider procedures requiring assistance completed. Urine collected: straight cath ko1 specimen, kalie colored, blood tinged. Straight cath inserted, using sterile technique, 14 Fr. Specimen obtained. Returned kalie urine. Patient tolerated well. 11:46 UAM Sent. ko1 12:00 Patient has correct armband on for positive identification. Allergy band placed. Bed in ko1 low position. Call light in reach. Side rails up X 1. Provided Education on: labs, meds. Pulse ox on. NIBP on. Door closed. Noise minimized. Lights dimmed. Warm blanket given. Pillow given. 13:13 Patient did not have IV access during this emergency room visit. me1 Administered Medications: 11:21 Drug: Ketorolac IM 30 mg IM once Route: IM; Site: left deltoid; ko1 11:51 Follow up: Response: No adverse reaction ko1 12:18 Drug: Ciprofloxacin PO 500 mg PO once Route: PO; ko1 13:03 Follow up: Response: No adverse reaction me1 Medication: 12:00 VIS not applicable for this client. ko1 Output: 12:00 Urine: 1100ml (Straight Cath); Total: 1100ml. ko1 Outcome: 13:00 Discharge ordered by . ec2 13:13 Discharged to home ambulatory, me1 13:13 Condition: stable 13:13 Discharge instructions given to patient, Instructed on discharge instructions, follow up and referral plans. medication usage, Demonstrated understanding of instructions, follow-up care, medications, Prescriptions given X 1, 13:14 Patient left the ED. me1 Signatures: Tatianna Samuel RN RN aa5 Sandi Chacko RN RN ko1 Wanda Rubio Michelle, RN RN me1 Antione Del Cid MD MD ec2 Corrections: (The following items were deleted from the chart) 13:03 10:46 Chief complaint: Patient states: burning with urination, suprapubic pain, and me1 inability to empty bladder, pt states "I can only pee a little bit at a time and I am hurting bad" aa5 13:04 10:46 Chief complaint: Patient states: burning with urination, suprapubic pain, and me1 inability to empty bladder, pt states "I can only pee a little bit at a time and I am hurting bad" me1
[2024-02-01 13:18] VITALS: O2SAT 99
[2024-02-01 13:20] VITALS: BP 126/71; TEMP 98.4
== END 2024-02-01 13:14 | disposition home or self-care (01) ==
LOC: ER 10:26
DX: N39.0 Urinary tract infection, site not specified (principal)
CPT/HCPCS: 51702; 81001; 96372; 99285

== ENCOUNTER 2024-02-02 21:08 | Emergency (ER) | payer MEDICARE ==
--- OUTSIDE RECORDS SUMMARY | 2024-02-02 21:12 | XMS REPORT | Continuity of Care Document ---
Author Name Unknown Address [address] [facility] [address] [place] [address] [facility] thconnect Address [address] [place] [address] Care Team Providers Care Clothes Shaker Name Role Phone KAMAS, [facility] Primary Car e Physician Unavailable JORDAN KAUFFMAN Attending Clinician Unavailabl e Doctor Unassigned, [place] Attending Clinician U Vikram Hinton MD Attending Clinician [phone] Nella DE JESUS Attending Clinician Unavailable Nella Thurston Attending Clinician [phone] Tiff Arenas Attending Clinician [phone] Nella DE JESUS Admitting Clinician Unavailable Payers Payer Name Policy Type Policy Number Effective Date Expirati on Date Source MEDICARE PART A \\T\\ B [id number] 2016 00:00:00 [employer] [facility] [id number] 2017 00:00:00 [employer] MEDIC[employer] ADVANTAGE PLAN [id number] [employer] (MEDICARE REPLACEMENT HMO) [id number] 2023 00:00:00 Problems Condition Name Condition Details Condition Category Status Onset Date Resolution Date Last Treatment Date Treating Clinician Comments Source Mild hyperchole sterolemia Mild hyperchole sterolemia Disease Active 2015-04 00:00: 00 [facility] Gout Gout Disease Active 04-28 00:00: 00 [facility] Hypertensi on Hypertensi on Disease Active 04-28 00:00: 00 [facility] Diabetes Diabetes Disease Active 04-28 00:00: 00 [facility] Allergies, Adverse Reactions, Alerts Allergy Name Allergy Type Status Severity Reaction(s) Onset Date Inactive Date Treating Clinician Comments Source Sulfa (Sulfona mide Antibiot ics) Propensi ty to adverse reaction s Active Unknown - See comments 04-28 00:00: 00 [facility] Codeine Propensi ty to adverse reaction s Active Unknown - See comments 04-28 00:00: 00 [facility] Sulfa (Sulfona mide Antibiot ics) Propensi ty to adverse reaction s Active Unknown - See comments 04-28 00:00: 00 [facility] CODEINE DRUG INGREDI Active Unknown-Cmnt 04-28 00:00: 00 [facility] SULFA (SULFONA MIDE ANTIBIOT ICS) Drug Class Active Unknown-Cmnt 04-28 00:00: 00 [facility] Social History Social Habit Start Date Stop Date Quantity Comments Source Gender identity [facility] Sexual orientation [facility] Exposure to SARS-CoV-2 (event) Not sure [facility] History of tobacco use Snuff User [facility] History SDOH Alcohol Frequency [facility] History SDOH Alcohol Std Drinks [facility] History SDOH Alcohol Binge [facility] Alcohol intake 2021-10-11 00:00:00 2021-10-11 00:00:00 0 /d [facility] History of Social function 2021-10-11 00:00:00 2021-10-11 00:00:00 [facility] Tobacco Comment 2015-04-28 00:00:00 2015-04-28 00:00:00 1 can lasts 3-4 days; 30 years [facility] Alcohol Comment 2015-04-28 00:00:00 2015-04-28 00:00:00 rare [facility] Cigarettes smoked current (pack per day) - Reported 2015-04-28 00:00:00 2015-04-28 00:00:00 [facility] Cigarette pack-years 2015-04-28 00:00:00 2015-04-28 00:00:00 [facility] Tobacco use and exposure 2015-04-28 00:00:00 2015-04-28 00:00:00 User of smokeless tobacco [facility] Sex Assigned At 1950 00:00:00 1950 00:00:00 [facility] Smoking Status Start Date Stop Date Source Ex-smoker 2015-04-28 00:00:00 2015-04-28 00:00:00 [facility] Medications Ordered Medication Name Filled Medication Name Start Date Stop Date Current Medication? Ordering Clinician Indication Dosage Frequency Signature (SIG) Comments Components Source acetaminoph en (TYLENOL) tablet 1,000 mg 05-23 02:15: 00 05-23 02:08 :00 No 1000mg 1,000 mg, Oral, ONCE, 1 dose, On 05/22/21 at 2015, [facility] HYDROcodone -acetaminop hen (NORCO) 10-325 mg tablet 1 tablet 2019-04 05:15: 00 02-08 04:13 :00 No 1{tbl} 1 tablet, Oral, ONCE NOW, 1 dose, 02/08/20 at 2315, [facility] ondansetron (ZOFRAN (PF)) injection 4 mg 2019-04 03:45: 00 02-08 02:52 :00 No 4mg 4 mg, Slow IV Push, ONCE, 1 dose, 02/08/20 at 2145, [facility] morpHINE injection 4 mg 2019-04 03:45: 00 02-08 02:52 :00 No 4mg 4 mg, Slow IV Push, ONCE, 1 dose, 02/08/20 at 2145, [facility] traMADoL (ULTRAM) 50 mg tablet 2019-04 00:00: 00 02-15 05:59 :00 No [id number] 100mg Take 2 tablets by mouth every 6 (six) hours as needed for Pain (scale 7-10) for up to 7 days. Indication s: acute pain [facility] LISINOPRIL 40 mg tablet 2016-04 00:00: 00 Yes TAKE 1 TABLET BY MOUTH EVERY MORNING [facility] lisinopril (PRINIVIL,Z ESTRIL) 40 mg tablet 2015-04 00:00: 00 Yes [id number] 40mg Take 1 tablet by mouth every morning. [facility] glipiZIDE XL (GLUCOTROL XL) 5 mg 24 hr tablet 2015-04 00:00: 00 Yes [id number] TAKE 1 TABLET BY MOUTH DAILY WITH BREAKFAST [facility] metFORMIN (GLUCOPHAGE ) 500 mg tablet 2015-04 00:00: 00 Yes [id number] 500mg Take 1 tablet by mouth 2 (two) times daily. [facility] atorvastati n (LIPITOR) 10 mg tablet 2015-04 00:00: 00 Yes [id number] 10mg Take 1 tablet by mouth at bedtime. [facility] Vital Signs Vital Name Observation Time Observation Value Comments S ource Systolic blood pressure 2021-05-23 02:00:00 157 mm[Hg] [facility] Diastolic blood pressure 2021-05-23 02:00:00 74 mm[Hg] [facility] Heart rate 2021-05-23 02:00:00 87 /min [facility] Respiratory rate 2021-05-23 02:00:00 18 /min [facility] Oxygen saturation in Arterial blood by Pulse oximetry 2021-05-23 02:00:00 98 /min [facility] Body temperature 2021-05-22 23:20:00 36.67 Eveline [facility] Body height 2021-05-22 23:20:00 177.8 cm [facility] Body weight 2021-05-22 23:20:00 108.863 kg [facility] BMI 2021-05-22 23:20:00 34.44 kg/m2 [facility] Systolic blood pressure 2020-02-09 02:56:00 158 mm[Hg] [facility] Diastolic blood pressure 2020-02-09 02:56:00 65 mm[Hg] [facility] Heart rate 2020-02-09 02:56:00 89 /min [facility] Respiratory rate 2020-02-09 02:56:00 18 /min [facility] Oxygen saturation in Arterial blood by Pulse oximetry 2020-02-09 02:56:00 98 /min [place] [facility] BMI 2020-02-09 01:19:00 33.72 kg/m2 [facility] Body temperature 2020-02-09 01:19:00 37.11 Eveline [facility] Body height 2020-02-09 01:19:00 177.8 cm [facility] Body weight 2020-02-09 01:19:00 106.595 kg [facility] Procedures Procedure Date / Time Performed Performing Clinician Source AUTHORIZATION FOR RELEASE OF PHI 2022-09-29 05:01:00 Doctor Unassigned, [place] [facility] DME/SUPPLY JUSTIFICATION 2022-09-14 05:01:00 Doc tor Unassigned, [place] [facility] URINALYSIS 2021-05-23 00:20[facility] 2021-05-23 00:16:00 Nella De Jesus [facility] COVID-19 (ID NOW RAPID TESTING) 2021-05-23 00:16:00 Nella De Jesus [facility] MAGNESIUM 2021-05-23 00:16:00 [facility] TROPONIN I 2021-05-23 00:16:00 [facility] De [facility] COMP. METABOLIC PANEL (11187) 2021-05-23 00:16:00 Nella De Jesus [facility] CBC WITH DIFF 2021-05-23 00:16:00 Nella De Jesus [facility] XR CHEST 1 VW 2021-05-22 23:55:42 Nella De Jesus [facility] CONSENT/REFUSAL FOR DIAGNOSIS AND TREATMENT 2021-05-22 23:13:29 Doctor Unassigned, [place] [facility] NOTICE OF PRIVACY PRACTICES 2021-05-22 23:13:08 Doctor Unassigned, [place] [facility] CT ABDOMEN PELVIS WO CONTRAST 2020-02-09 03:12:47 Tiff Vance [facility] XR CHEST 1 VW 2020-02-09 02:49:18 Tiff Vance [facility] XR RIBS 3 VW RIGHT 2020-02-09 02:49:18 Wendie Vance [facility] URINALYSIS 2020-02-09 02:02:00 Tiff Vance [facility] CONSENT/REFUSAL FOR DIAGNOSIS AND TREATMENT 2020-02-09 01:13:03 Doctor Unassigned, [place] [facility] NOTICE OF PRIVACY PRACTICES 2020-02-09 01:12:44 Doctor Unassigned, [place] [facility] Encounters Start Date/Time End Date/Time Encounter Type Admission Type Attending [facility] Care Facility Care Department Encounter ID Source 2021-01-29 03:56:53 Emergency [facility] [id number] [facility] 2023-09-27 00:00:00 2023-09-27 00:00:00 Outpatient JORDAN AGUILA [facility] [id number] [facility] 2023-02-23 00:00:00 2023-02-23 00:00:00 Outpatient [facility] [id number] [facility] Medical [facility] 2023-01-31 00:00:00 2023-01-31 00:00:00 [facility] [id number] [facility] Medical [facility] 2023-01-16 00:00:00 2023-01-16 00:00:00 Outpatient [facility] [id number] [facility] 2022-09-29 00:00:00 2022-09-29 00:00:00 Orders Only Doctor Unassigned, [place] [facility] [id number] [facility] 2022-09-14 00:00:00 2022-09-14 00:00:00 Orders Only Doctor Unassigned, [place] [facility] [id number] [facility] 2022-09-13 00:00:00 2022-09-13 00:00:00 Telephone Vikram Millan [facility] [id number] [id number] [facility] 2021-05-22 17:33:00 2021-05-22 20:14:00 Emergency X Nella DE JESUS [facility] ERT [id number] [facility] 2021-05-22 17:33:00 2021-05-22 20:14:00 Emergency Nella De Jesus [facility] [id number] [id number] [facility] 2020-02-08 19:21:00 2020-02-08 22:42:00 Emergency Tiff Vance [facility] [id number] [facility] Results Test Description Test Time Test Comments Results Result Co mments Source [facility] [id number] 01:01:15* Test Item Value Reference Range Interpretation Comme nts NT-proBNP (test code = 9868057874) 403 pg/mL See_Comment H [Automated message] The system which generated this result transmitted reference range: <=125. The reference range was not used to interpret this result as normal/abnormal. EUGENIA (test code = EUGENIA) Biotin has been reported to cause a negative bias, interpret results relative to patient's use of biotin. Lab Interpretation (test code = 61925-7) [facility]normal [facility]-21 00:52:57* Test Item Value Reference Range Interpretation Comme nts MAGNESIUM (test code = 6363631044) 1.8 mg/dL 1.7-2.4 Lab Interpretation (test cod e = 53163-0) Normal [facility]OLIC PAN[facility] (11008)2021-05-23 00:52:37* Test Item Value Reference Range Interpretation Comme nts NA (test code = 7451753237) 134 mmol/L 135-145 L K (test code = 9040146354) 5.1 mmol/L 3.5-5.0 H CL (test code = 9522131974) 105 mmol/L 98-108 CO2 TOTAL (test code = 2902402826) 20 mmol/L 23-31 L AGAP (test code = 8246451543) 2-16 BUN (test code = 5351875526) 50 mg/dL 7-23 H GLUCOSE (test code = 6410087854) 301 mg/dL 70-110 H CREATININE (test code = 3893396588) 1.97 mg/dL 0.60-1.25 H TOTAL BILI (test code = 6368286727) 0.5 mg/dL 0.1-1.1 CALCIUM (test code = 6525527080) 9.1 mg/dL 8.6-10.6 T PROTEIN (test code = 7079617395) 8.2 g/dL 6.3-8.2 ALBUMIN (test code = 3534147557) 4.9 g/dL 3.5-5.0 ALK PHOS (test code = 1798584623) 99 U/L 34-122 ALTv (test code = 1742-6) 21 U/L 5-50 AST(SGOT) (test code = 9856347479) 24 U/L 13-40 eGFR (test code = 1256355826) mL/min/1.73m2 EUGENIA (test code = EUGENIA) Association [...] imaging tests). Lab Interpretation (test code = 23579-1) Abnormal [facility] WITH [id number] 00:42:34* Test Item Value Reference Range Interpretation Comme nts WBC (test code = 6690-2) See_Comment H [Automated [employer]] The system which generated this result transmitted reference range: 4.20 - 10.70 10*3/?L. The reference range was not used to interpret this result as normal/abnormal. RBC (test code = 789-8) See_Comment [[employer]] The system which generated this result transmitted [...] 32.3 g/dL 31.2-35.0 RDW-SD (test code = 70625-4) 48.0 fL 38.5-51.6 RDW-CV (test code = 788-0) 15.5 % 12.1-15.4 H PLT (test code = 777-3) See_Comment [Automated messa ge] The system which generated this result transmitted reference range: 150 - 328 10*3/?L. The reference range was not used to interpret this result as normal/abnormal. MPV (test code = 74444-6) 8.7 fL 9.8-13.0 L NRBC/100 WBC (test code = 9528289642) See_Comment [Automated Exinda ssage] The system which generated this result transmitted reference range: 0.0 - 10.0 /100 WBCs. The reference range was not used to interpret this result as normal/abnormal. NRBC x10^3 (test code = 2813620321) <0.01 See_Comment [Automated messa ge] The system which generated this result transmitted reference range: 10*3/?L. The reference range was not used to interpret this result as normal/abnormal. GRAN MAT (NEUT) % (test code = 770-8) 70.6 % IMM GRAN % (test code = 7416083521) 0.70 % LYMPH % (test code = 736-9) 17.7 % MONO % (test code = 5905-5) 8.2 % EOS % (test code = 713-8) 2.4 % BASO % (test code = 706-2) 0.4 % GRAN MAT x10^3(ANC) (test code = 8737134466) 8.91 10*3/uL 1.99-6.95 H IMM GRAN x10^3 (test code = 0066604225) 0.09 10*3/uL 0.00-0.06 H LYMPH x10^3 (test code = 731-0) 2.23 10*3/uL 1.09-3.23 MONO x10^3 (test code = 742-7) 1.04 10*3/uL 0.36-1.02 H EOS x10^3 (test code = 711-2) 0.30 10*3/uL 0.06-0.53 BASO x10^3 (test code = 704-7) 0.05 10*3/uL 0.01-0.09 Lab Interpretation (test code = 68404-8) [facility]normal [facility] 02:22:00* Test Item Value Reference Range Interpretation Comme nts APPEARANCE (test code = 9727286436) Clear Clear COLOR (test code = 2286772577) Yellow Yellow PH (test code = 5510317939) 4.8-8.0 SP GRAVITY (test code = 1834676325) 1.003-1.030 GLU U QUAL (test code = 7779051952) 50 mg/dL Normal A BLOOD (test code = 6521685068) 1+ Negative A KETONES (test code = 0631061970) Negative Negative PROTEIN (test code = 2887-8) 30 mg/dL Negative A UROBILIN (test code = 2941555511) Normal Normal BILIRUBIN (test code = 4388637090) Negative Negative NITRITE (test code = 3220115376) Negative Negative LEUK YUMI (test code = 1971874678) Negative Negative RBC/HPF (test code = 1050437256) See_Comment [Automated [employer] ge] The system which generated this result transmitted reference range: 0 - 3 HPF. The reference range was not used to interpret this result as normal/abnormal. WBC/HPF (test code = 6315280984) <1 See_Comment [Automated [employer]] The system which generated this result transmitted reference range: 0 - 5 HPF. The reference range was not used to interpret this result as normal/abnormal. BACTERIA (test code = 5353678301) Negative Negative MUCOUS (test code = 8340652162) Slight Negative LPF A SQ EPITH (test code = 2800551013) <1 HPF Lab Interpretation (test code = 86914-8) Abnormal [facility]"
[2024-02-02] MEDS ORDERED: MORPHINE 2 MG/ML SYR ONE (22:25)
[2024-02-02 22:46] LABS: Albumin/Globulin Ratio 0.8 (1.1-1.8); Anion Gap 10.2 mEq/L (5.0-15.0); Bilirubin Total 0.5 mg/dL (0.2-1.0); Globulin 4.8 g/dL (2.3-3.5); Potassium 5.2 mEq/L (3.5-5.1); Protein, Total 8.8 g/dL (6.4-8.2)
[2024-02-02 22:51] LABS: Absolute Basophils 0.1 K/uL (0-0.5); Absolute Eosinophils 0.3 K/uL (0-0.5); Absolute Lymphocytes (CBC) 1.8 K/uL (0.7-4.9); Absolute Monocytes 0.9 K/uL (0.1-1.3); Absolute Neutrophil 9.3 K/uL (1.8-8.0); Basophils % 0.6 % (0-1.3); Eosinophils % 2.3 % (0-4.4); Hematocrit 38.1 % (39.6-49.0); Hemoglobin 12.3 g/dL (13.6-17.9); Lymphocytes % 14.5 % (15.3-44.8); MCH 28.7 pg (27.0-35.0); MCHC 32.3 g/dL (32.0-36.0); MCV 88.9 fL (80-100); MPV 6.9 fL (7.6-11.3); Neutrophils % 75.6 % (41.7-73.7); Platelets 304 thou/uL (152-406); RBC Red Blood Cell Count 4.29 M/uL (4.33-5.43); Red Cell Distribution Width 16.6 % (12.1-15.2)
[2024-02-02 23:08] LABS: Specific Gravity 1.014 (1.005-1.030); Sqamous Epithelial None Seen /HPF (None Seen); Urine Bacteria <20 /HPF (<20); Urine Bilirubin NEGATIVE (Negative); Urine Blood Negative (Negative); Urine Clarity Clear (Clear); Urine Color Dark-Yellow (Yellow); Urine Crystals Unidentified Few /HPF (None Seen); Urine Culture Reflex Order NOT NEEDED; Urine Glucose TRACE (Negative); Urine Ketones NEGATIVE (Negative); Urine Microscopic Reflex YN ORDER UMIC; Urine Mucus Slight /HPF (None Seen); Urine Nitrite 1+ (Negative); Urine Protein 2+ (Negative); Urine Urobilinogen Normal (Normal); Urine WBC <5 /HPF (<5)
[2024-02-03] MEDS ORDERED: ALBUTEROL 2.5 MG/3 ML NEB SOL ONE (00:06)
[2024-02-03] MEDS ORDERED: INSULIN REGULAR (HUMAN) 100 UNIT/ML ONE (00:06)
[2024-02-03] MEDS ORDERED: SOD POLYSTYREN SUL 15 GM/60 ML UCUP ONE (00:07)
[2024-02-03] MEDS ORDERED: D50W 25 GM/50 ML SYRINGE IV ONE (00:07)
[2024-02-03] MEDS ORDERED: NA CHLORIDE 0.9% 500 ML ONE (00:07)
--- NOTE | 2024-02-03 01:12 | RAD REPORT ---
EXAM: CT ABDOMEN AND PELVIS WITHOUT CONTRAST DATE: 02/02/2024 10:22 PM CDT INDICATION: 73-year-old male with urinary retention. COMPARISON: None. TECHNIQUE: CT of the abdomen and pelvis acquired without the intravenous administration of contrast, limiting evaluation. Axial, coronal and sagittal images are provided. The study was performed using dose reduction techniques including automated exposure control and/or adjustment of the MA and/or KV according to patient size, and/or iterative reconstruction techniques. Artifact within the lower chest and upper abdomen from the patient's arms. 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 Intravesical Kaiser catheter. Lower thorax: No consolidation or pleural effusion. Partially visualized heart is normal in size. A therosclerotic coronary artery calcifications. Liver, spleen, pancreas, adrenal glands: No discrete acute lesion on the unenhanced scan. Biliary tree: No intra- or extrahepatic bile duct dilation. Gallbladder: No calcified cholelithiasis or pericholecystic inflammation. Kidneys and ureters: No urolithiasis. No significant hydroureteronephrosis. Small right extrarenal pe lvis. Moderate bilateral perinephric and retroperitoneal nonspecific stranding. Pyelonephritis not excluded on the unenhanced scan. Bladder/reproductive organs: Prostate gland measures approximately 4.8 x 4.7 x 4.3 cm for a volume of 50 mL. Decompressed urinary bladder containing balloon tip Kaiser catheter. Nonspecific urinary bladder mural thickening with perivesical stranding, which can be seen with inadequate distention, cy stitis, and bladder outlet obstruction. Correlation with urinalysis may be helpful. Bilateral vas deferens calcification incidentally noted. Gastrointestinal tract: Lower esophagus/stomach: Very small hiatal hernia. Small bowel: No small bowel obstruction.. Colon: Mild colonic diverticulosis with small amount of retained colonic stool. No diverticulitis. Co briana is partially decompressed, limiting evaluation. Mild nonspecific circumferential rectal mural thickening, which can be seen with inadequate distention and/or proctitis. Appendix: Normal caliber air-filled appendix. Peritoneum, mesentery and retroperitoneum: No free air, ascites or loculated fluid. Lymph nodes: No pathologic adenopathy based on size criteria. Vasculature: Aorta and branches: Atherosclerotic moderate vascular calcifications. Aorta has a normal diameter. IVC and veins: IVC has a normal diameter. Subcentimeter calcified pelvic phleboliths. Bones: Degenerative changes, including extensive multilevel spondylosis, most prominent at the L3-4 l evel, with midline spondylotic disc extrusion and bilateral facet arthrosis causing severe central canal stenosis, and L4-5 level with spondylotic disc bulging and bilateral facet arthrosis causing se abner central canal stenosis, and moderate bilateral neuroforaminal stenosis. Correlation with nonemergent lumbar spine MRI can be considered as clinically indicated. Bilateral hip and SI joint os teoarthrosis. Right hip compression screw, with distal plate and screws transfixing old healed right proximal femoral fracture. Soft tissues: Small bilateral inguinal hernias and tiny umbilical hernia containing adipose tissue. M ild scattered subcutaneous tissue stranding, most consistent with edema fatty atrophy of the paraspinal and gluteal musculature. IMPRESSION: 1. Prostatomegaly. 2. Decompressed urinary bladder with intravesical Kaiser catheter balloon. Nonspecific circumferenti al urinary bladder mural thickening with perivesical stranding. Differential diagnosis would include inadequate distention, cystitis or bladder outlet obstruction. Nonspecific bilateral perineph kelsea/retroperitoneal stranding. Correlation with urinalysis may be helpful. 3. Mild colonic diverticulosis. No diverticulitis. 4. Multilevel spondylosis, most prominent at the L3-4 and L4-5 levels with associated severe centra l canal stenosis, as discussed. Correlation with nonemergent lumbar spine MRI can be considered as clinically indicated. 5. Additional incidental findings as discussed. Electronically signed by: Drake Mosher MD 02/03/2024 01:00 AM CDT Due to temporary technical issues with the PACS/[employer] reporting system, reports are being taty d by the in-house radiologist without review as a courtesy to ensure prompt reporting the interpreting radiologist is fully responsible for the content of the report. Transcribed Date/Time: 02/03/2024 1:12 AM
[2024-02-03] MEDS ORDERED: CEFTRIAXONE 1000 MG/VIAL ONE (01:54)
[2024-02-03] MEDS ORDERED: NA CHLORIDE 0.9% 50 ML ONE (01:54)
--- NOTE | 2024-02-03 02:41 | EDPHYS ---
Physician Documentation [facility] Name: Giovanni Lopez Age: 73 yrs Sex: Male : 1950 Arrival Date: 02/02/2024 Time: 21:08 Bed 6 Private MD: ED Physician Nav Rangel HPI: 02/01 21:30 This 73 yrs old Male presents to ER via Wheelchair with complaints of Pain With cp Urination, Urinary Retention. 21:30 The patient presents with urinary symptoms, retention, unable to void. Onset: The cp symptoms/episode began/occurred 2 week(s) ago, and became worse today. Associated signs and symptoms: Pertinent positives: abdominal pain, Pertinent negatives: diarrhea, fever, vomiting. Severity of symptoms: in the emergency department the symptoms are unchanged, despite home interventions. 21:30 Patient returns to ED after being seen yesterday for similar complaints and being cp diagnosed with uti. Currently prescribed antibiotics. Historical: - Allergies: 21:40 HYDROCODONE; ha1 21:40 Sulfa (Sulfonamide Antibiotics); ha1 - Home Meds: 21:40 Allopurinol Oral [Active]; lisinopril Oral [Active]; Furosemide Oral [Active]; ha1 amlodipine oral [Active]; - PMHx: 21:40 CHF; diabetes mellitus; Gout; Hypercholesterolemia; Hypertensive disorder; ha1 - Immunization history:: Adult Immunizations up to date. - Infectious Disease History:: Denies. - Social history:: Smoking status: Patient denies any tobacco usage or history of. ROS: 21:33 Constitutional: Negative for body aches, chills, fever, poor PO intake, cp 21:33 Eyes: Negative for injury, pain, redness, and discharge, cp 21:33 ENT: Negative for drainage from ear(s), ear pain, sore throat, difficulty swallowing, difficulty handling secretions, 21:33 Cardiovascular: Negative for chest pain, palpitations, 21:33 Respiratory: Negative for cough, shortness of breath, wheezing, 21:33 Abdomen/GI: Positive for abdominal pain, Negative for vomiting, diarrhea, constipation, 21:33 Back: Negative for pain at rest, pain with movement, 21:33 : Positive for difficulty urinating, Negative for hematuria, flank pain, testicular pain 21:33 Neuro: Negative for dizziness, headache, weakness, 21:33 All other systems are negative, Exam: 21:38 Constitutional: The patient appears in no acute distress, alert, awake, cp non-diaphoretic, non-toxic, well developed, well nourished, uncomfortable, 21:38 Head/Face: Normocephalic, atraumatic. cp 21:38 Eyes: Periorbital structures: appear normal, Conjunctiva: normal, no exudate, no injection, Sclera: no appreciated abnormality, Lids and lashes: appear normal, bilaterally, 21:38 ENT: External ear(s): are unremarkable, Nose: is normal, Mouth: Lips: moist, Oral mucosa: moist, Posterior pharynx: Airway: no evidence of obstruction, patent, 21:38 Chest/axilla: Inspection: normal, 21:38 Cardiovascular: Rate: normal, Rhythm: regular, Edema: is not appreciated, JVD: is not appreciated, 21:38 Respiratory: the patient does not display signs of respiratory distress, Respirations: normal, no use of accessory muscles, no retractions, labored breathing, is not present, Breath sounds: are clear throughout, no decreased breath sounds, no stridor, no wheezing, 21:38 Abdomen/GI: Inspection: abdomen appears normal, Bowel sounds: active, all quadrants, Palpation: soft, in all quadrants, moderate abdominal tenderness, in the suprapubic area, voluntary guarding, is elicited in the suprapubic area, 21:38 Back: ROM is normal, 21:38 Neuro: Orientation: to person, place \T\ time. Mentation: is normal, Motor: moves all fours, strength is normal, Sensation: is normal, 23:45 ECG was reviewed by the Attending Physician. cp Vital Signs: 21:17 BP 176 / 88; Pulse 98; Resp 18; Pulse Ox 98% on R/A; al5 21:19 BP 176 / 88; Pulse 100; Resp 19 S; Temp 97.6(T); Pulse Ox 97% on R/A; Weight 110.22 kg; ha1 Height 5 ft. 10 in. ; 22:00 BP 189 / 86; Pulse 100; Resp 18; Pulse Ox 97% on R/A; al5 22:30 BP 177 / 84; Pulse 92; Resp 16; Pulse Ox 97% on R/A; al5 23:00 BP 145 / 70; Pulse 85; Resp 17; Pulse Ox 98% on R/A; al5 23:30 BP 170 / 84; Pulse 85; Resp 17; Pulse Ox 98% on R/A; al5 02/02 00:00 BP 161 / 76; Pulse 87; Resp 15; Pulse Ox 97% on R/A; al5 00:33 BP 167 / 79; Pulse 85; Resp 14; Pulse Ox 100% on R/A; al5 01:00 BP 168 / 68; Pulse 97; Resp 18; Pulse Ox 100% on R/A; al5 01:00 BP 172 / 79; Pulse 89; Resp 16; Pulse Ox 96% on R/A; al5 01:30 BP 176 / 66; Pulse 96; Resp 14; Pulse Ox 96% on R/A; al5 01:30 BP 154 / 64; Pulse 98; Resp 14; Pulse Ox 97% on R/A; al5 02:00 BP 173 / 75; Pulse 70; Resp 18; Pulse Ox 95% on R/A; al5 02:30 BP 172 / 81; Pulse 98; Resp 18 S; Pulse Ox 97% on R/A; ha1 02/01 21:19 Body Mass Index 34.87 (110.22 kg, 177.8 cm) [facility] MDM: 02/01 21:24 Medical Screening Exam initiated [facility] 02/02 02:42 Data reviewed: vital signs, nurses notes, lab test result(s), EKG, radiologic studies, cp CT scan, and as a result, I will discharge patient. 02:42 Differential diagnosis: UTI, urinary retention, prostatitis, urethritis, sepsis. I cp considered the following discharge prescriptions or medication management in the emergency department Medications were administered in the Emergency Department. See MAR. Care significantly affected by the following chronic conditions: Diabetes, Hypertension, Congestive Heart Failure, Chronic Kidney Disease. Counseling: I had a detailed discussion with the patient and/or guardian regarding the historical points, exam findings, and any diagnostic results supporting the discharge/admit diagnosis, lab results, radiology results, the need for outpatient follow up, a urologist, to return to the emergency department if symptoms worsen or persist or if there are any questions or concerns that arise at home. Response to treatment: the patient's symptoms have markedly improved after treatment, and as a result, I will discharge patient. 02/01 21:27 Order name: CBC with Diff; Complete Time: 23:20 02/02 02:32 Interpretation: Normal except: WBC 12.30; RBC 4.29; HGB 12.3; HCT 38.1; RDW 16.6; MPV cp 6.9; JAM% 75.6; LYM% 14.5; NEUT A 9.3. 02/01 21:27 Order name: CMP; Complete Time: 22:54 02/01 22:54 Interpretation: Normal except: K 5.2; CL 109; GLUC 165; BUN 37; CRE 1.89; GFR 37; CA cp 10.2; TP 8.8; GLOB 4.8; A/G 0.8. 02/01 21:27 Order name: Urinalysis w/ reflexes; Complete Time: 23:20 02/02 00:58 Order name: Potassium; Complete Time: 02:42 02/02 02:42 Interpretation: Reviewed. 02/01 23:22 Order name: CT Stone Protocol 02/01 23:22 Order name: EKG; Complete Time: 23:22 02/01 21:26 Order name: Bladder Scanner: pre and post void; Complete Time: 00:28 02/01 21:27 Order name: IV Saline Lock; Complete Time: 23:00 02/01 21:27 Order name: Labs collected and sent; Complete Time: 23:00 02/01 23:22 Order name: EKG - Nurse/Tech; Complete Time: 23:40 cp EC/02 23:45 Rate is 86 beats/min. Rhythm is regular. CT interval is normal. QRS interval is cp prolonged at 106 msec. QT interval is normal. T waves are Inverted in leads aVL, aVR. Interpreted by me. Reviewed by me. Administered Medications: 23:00 Drug: morphine IVP or IV 2 mg IVP once over 4 mins Route: IVP; Infused Over: 4 mins; al5 Site: right antecubital; 02/02 00:27 Follow up: Response: No adverse reaction; Pain is decreased al5 00:37 Drug: Albuterol Inhalation 2.5 mg Inhalation every 20 minutes x3 Route: Inhalation; al5 00:42 Drug: Kayexalate PO 30 grams PO once Route: PO; al5 01:07 Follow up: Response: No adverse reaction al5 00:42 Drug: Albuterol Inhalation 2.5 mg Inhalation every 20 minutes x3 Route: Inhalation; al5 00:42 Drug: D50W IVP 50 ml IVP once; (1 amp) Route: IVP; Site: right antecubital; al5 01:06 Follow up: Response: No adverse reaction al5 00:42 Drug: NS 0.9% IV 500 ml IV at bolus once; to be given as a bolus over 30 minutes Route: al5 IV; Rate: bolus; Site: right antecubital; 01:59 Follow up: Response: No adverse reaction; IV Status: Completed infusion; IV Intake: al5 500ml 00:43 Drug: Insulin Regular Human IVP 10 units IVP once {Co-Signature: ha1 (Joie Pop RN).} Route: IVP; Site: right antecubital; 01:06 Follow up: Response: No adverse reaction al5 01:06 Drug: Albuterol Inhalation 2.5 mg Inhalation every 20 minutes x3 Route: Inhalation; al5 01:59 Follow up: Response: No adverse reaction :59 Drug: Rocephin IV 1 grams IV at calculated rate once; Given slow IV push per pharmacy al5 instructions Route: IV; Rate: calculated rate; Site: right antecubital; 03:06 Follow up: Response: No adverse reaction; IV Status: Completed infusion; IV Intake: [id number] Disposition Summary: 02/03/24 02:41 Discharge Ordered Notes: Location: Home cp Problem: new cp Symptoms: have improved cp Condition: Stable cp Diagnosis - Chronic kidney disease, unspecified cp - Hyperkalemia cp - Retention of urine, unspecified cp - UTI/ Urinary tract infection, site not specified cp Followup: cp - With: Private Physician - When: 1 week - Reason: Recheck today's complaints Discharge Instructions: - Discharge Summary Sheet cp - Hyperkalemia cp - Acute Urinary Retention, Male cp - Urinary Tract Infection, Adult cp - Chronic Kidney Disease, Adult cp Forms: - Medication Reconciliation Form cp - Antibiotic Education cp - Prescription Opioid Use cp - Patient Portal Instructions cp - Leadership Thank You Letter cp Signatures: Dispatcher [employer] Nav Mendieta MD MD cha Page, Corey, PA PA Joie Ingram RN RN ha1 Tara Cummings RN RN al5 Joie Pop RN ha1 Corrections: (The following items were deleted from the chart) 02/01 21: 21:27 CBC+H.LAB.BRZ ordered. EDMS EDMS 21:27 COMPREHENSIVE METABOLIC PANEL+C.LAB.BRZ ordered. EDMS EDMS 21:27 Urinalysis+U.LAB.BRZ ordered. EDMS EDMS 02/03 00:37 02/01 21:30 Onset: The symptoms/episode began/occurred today, cp cp
--- NOTE | 2024-02-03 02:41 | ER ---
Nurse's Notes [facility] Name: Giovanni Lopez Age: 73 yrs Sex: Male : 1950 Arrival Date: 02/02/2024 Time: 21:08 Bed 6 Private MD: Diagnosis: Chronic kidney disease, unspecified;Hyperkalemia;Retention of urine, unspecified;UTI/ Urinary tract infection, site not specified Presentation: 02/01 21:19 Chief complaint: Patient states: DIFFICULTY URINATING, URINE RETENTION FOR THE PAST TWO ha1 WEEKS. 21:19 Coronavirus screen: Vaccine status: Patient reports being unvaccinated. Ebola Screen: ha1 No symptoms or risks identified at this time. Initial Sepsis Screen: Does the patient meet any 2 criteria? No. Patient's initial sepsis screen is negative. Does the patient have a suspected source of infection? No. Patient's initial sepsis screen is negative. Risk Assessment: Do you want to hurt yourself or someone else? Patient reports no desire to harm self or others. Onset of symptoms was January 20, 2024. 21:19 Method Of Arrival: Wheelchair ha1 21:19 Acuity: SOBEIDA 3 ha1 Historical: - Allergies: 21:40 HYDROCODONE; ha1 21:40 Sulfa (Sulfonamide Antibiotics); ha1 - Home Meds: 21:40 Allopurinol Oral [Active]; lisinopril Oral [Active]; Furosemide Oral [Active]; ha1 amlodipine oral [Active]; - PMHx: 21:40 CHF; diabetes mellitus; Gout; Hypercholesterolemia; Hypertensive disorder; ha1 - Immunization history:: Adult Immunizations up to date. - Infectious Disease History:: Denies. - Social history:: Smoking status: Patient denies any tobacco usage or history of. Screenin:12 [facility] ED Fall Risk Assessment (Adult) History of falling in the last 3 months, al5 including since admission No falls in past 3 months (0 pts) Confusion or Disorientation No (0 pts) Intoxicated or Sedated No (0 pts) Impaired Gait No (0 pts) Mobility Assist Device Used No (0 pt) Altered Elimination No (0 pt) Score/Fall Risk Level 0 - 2 = Low Risk Oriented to surroundings, Maintained a safe environment, Provided non-skid footwear, Hourly rounding (assess needs \T\ fall precautionary measures) done. Abuse screen: Denies threats or abuse. Denies injuries from another. Nutritional screening: No deficits noted. Tuberculosis screening: No symptoms or risk factors identified. Assessment: 22:12 General: Appears in no apparent distress. uncomfortable, Behavior is calm, cooperative. al5 Pain: Complains of pain in suprapubic area, right lower quadrant and left lower quadrant Pain currently is 10 out of 10 on a pain scale. Neuro: Level of Consciousness is awake, alert, obeys commands, Oriented to person, place, time, situation. Cardiovascular: Capillary refill < 3 seconds Patient's skin is warm and dry. Respiratory: Airway is patent Respiratory effort is even, unlabored, Respiratory pattern is regular, symmetrical. GI: Abdomen is round Reports lower abdominal pain. : Reports inability to void, pain in suprapubic area lower quadrant(s). EENT: No signs and/or symptoms were reported regarding the EENT system. Derm: Skin is intact, Skin is pink, warm \T\ dry. normal. Musculoskeletal: No signs and/or symptoms reported regarding the musculoskeletal system. 02/02 02:30 Reassessment: Patient and/or family updated on plan of care and expected duration. Pain ha1 level reassessed. Patient is alert, oriented x 3, equal unlabored respirations, skin warm/dry/pink. Patient states feeling better. Patient states symptoms have improved. Vital Signs: 02/01 21:17 BP 176 / 88; Pulse 98; Resp 18; Pulse Ox 98% on R/A; al5 21:19 BP 176 / 88; Pulse 100; Resp 19 S; Temp 97.6(T); Pulse Ox 97% on R/A; Weight 110.22 kg; ha1 Height 5 ft. 10 in. ; 22:00 BP 189 / 86; Pulse 100; Resp 18; Pulse Ox 97% on R/A; al5 22:30 BP 177 / 84; Pulse 92; Resp 16; Pulse Ox 97% on R/A; al5 23:00 BP 145 / 70; Pulse 85; Resp 17; Pulse Ox 98% on R/A; al5 23:30 BP 170 / 84; Pulse 85; Resp 17; Pulse Ox 98% on R/A; al5 02/02 00:00 BP 161 / 76; Pulse 87; Resp 15; Pulse Ox 97% on R/A; al5 00:33 BP 167 / 79; Pulse 85; Resp 14; Pulse Ox 100% on R/A; al5 01:00 BP 168 / 68; Pulse 97; Resp 18; Pulse Ox 100% on R/A; al5 01:00 BP 172 / 79; Pulse 89; Resp 16; Pulse Ox 96% on R/A; al5 01:30 BP 176 / 66; Pulse 96; Resp 14; Pulse Ox 96% on R/A; al5 01:30 BP 154 / 64; Pulse 98; Resp 14; Pulse Ox 97% on R/A; al5 02:00 BP 173 / 75; Pulse 70; Resp 18; Pulse Ox 95% on R/A; al5 02:30 BP 172 / 81; Pulse 98; Resp 18 S; Pulse Ox 97% on R/A; ha1 02/01 21:19 Body Mass Index 34.87 (110.22 kg, 177.8 cm) 1 ED Course: 02/01 21:10 Patient arrived in ED. im 21:15 Nav Hand PA is PHCP. cp 21:15 Nav Rangel MD is Attending Physician. cp 21:19 Arm band placed on right wrist. ha1 21:40 Triage completed. ha1 21:58 Tara Cummings, JOLANTA is Primary Nurse. al5 22:12 bladder scanner (pre): 900 mL. al5 22:12 Patient has correct armband on for positive identification. Bed in low position. Call al5 light in reach. Side rails up X2. Provided Education on: plan of care. 23:01 No provider procedures requiring assistance completed. Kaiser cath inserted, using al5 sterile technique, 16 Fr., by ak, balloon inflated, to gravity drainage, clamped. urine specimen collected. Inserted saline lock: 20 gauge in right antecubital area, using aseptic technique. Blood collected. Flushed with 10 mL NS. 23:40 EKG done, by nail tech. af3 23:48 CT Stone Protocol In Process Unspecified. EDMS 02/02 00:28 bladder scanner (post): 0 mL. al5 03:05 IV discontinued, intact, bleeding controlled, No redness/swelling at site. Pressure ha1 dressing applied. Administered Medications: 02/01 23:00 Drug: morphine IVP or IV 2 mg IVP once over 4 mins Route: IVP; Infused Over: 4 mins; al5 Site: right antecubital; 02/02 00:27 Follow up: Response: No adverse reaction; Pain is decreased al5 00:37 Drug: Albuterol Inhalation 2.5 mg Inhalation every 20 minutes x3 Route: Inhalation; al5 00:42 Drug: Kayexalate PO 30 grams PO once Route: PO; al5 01:07 Follow up: Response: No adverse reaction al5 00:42 Drug: Albuterol Inhalation 2.5 mg Inhalation every 20 minutes x3 Route: Inhalation; al5 00:42 Drug: D50W IVP 50 ml IVP once; (1 amp) Route: IVP; Site: right antecubital; al5 01:06 Follow up: Response: No adverse reaction 5 00:42 Drug: NS 0.9% IV 500 ml IV at bolus once; to be given as a bolus over 30 minutes Route: al5 IV; Rate: bolus; Site: right antecubital; 01:59 Follow up: Response: No adverse reaction; IV Status: Completed infusion; IV Intake: al5 500ml 00:43 Drug: Insulin Regular Human IVP 10 units IVP once {Co-Signature: ha1 (Joie Pop RN).} Route: IVP; Site: right antecubital; 01:06 Follow up: Response: No adverse reaction al5 01:06 Drug: Albuterol Inhalation 2.5 mg Inhalation every 20 minutes x3 Route: Inhalation; al5 01:59 Follow up: Response: No adverse reaction 5 :59 Drug: Rocephin IV 1 grams IV at calculated rate once; Given slow IV push per pharmacy al5 instructions Route: IV; Rate: calculated rate; Site: right antecubital; 03:06 Follow up: Response: No adverse reaction; IV Status: Completed infusion; IV Intake: [id number] Medication: 02/01 23:02 VIS not applicable for this client. al5 Intake: 02/02 01:59 IV: 500ml; Total: 500ml. al5 03:06 IV: 50ml; Total: 550ml. ha1 Outcome: 02:41 Discharge ordered by MD. pizano 03:03 Condition: stable ha1 03:04 Discharge instructions given to patient, family, Instructed on discharge instructions, ha1 follow up and referral plans. Demonstrated understanding of instructions, follow-up care, medications, 03:04 Discharged to home via wheelchair, with family, ha1 03:07 Patient left the ED. ha1 Signatures: Dispatcher [employer] EDMS Nav Hand PA PA cp Ayala, Heidy, JOLANTA RN ha1 Wanda Rubio Amanda, RN RN al5 Vanessa Gonzalez 3 Joie Pop RN ha1 Corrections: (The following items were deleted from the chart) 02/01 21:43 21:19 Acuity: SOBEIDA 4 ha1 ha1
[2024-02-03 03:17] VITALS: TEMP 97.6; O2SAT 97
[2024-02-03 03:18] VITALS: BP 172/81
--- NOTE | 2024-02-04 12:15 | EKG ---
Test Date: 2024-02-02 Test Time: 23:38:10 Infantry Weapons Crewmember: AF MEASUREMENT RESULTS: Intervals: Rate: 86 SD: 134 QRSD: 106 QT: 398 QTc: 476 [place]: P: 87 SD: 134 QRS: -66 T: 102 INTERPRETIVE STATEMENTS: Sinus rhythm with premature supraventricular complexes Left axis deviation Anterior infarct, age undetermined Abnormal ECG Compared to ECG 06/18/2022 14:42:35 Atrial premature complex(es) now present Myocardial infarct finding still present Electronically Signed On 02-04-24 12:13:23 SPIDER ASSEMBLER by David Ramirez
== END 2024-02-03 03:07 | disposition home or self-care (01) ==
LOC: ER 21:08
DX: N39.0 Urinary tract infection, site not specified (principal); E87.5 Hyperkalemia; E11.22 Type 2 diabetes mellitus with diabetic chronic kidney disease; I13.0 Hypertensive heart and chronic kidney disease with heart failure and stage 1 through stage 4 chronic kidney disease, or unspecified chronic kidney disease; N18.9 Chronic kidney disease, unspecified; I50.9 Heart failure, unspecified
CPT/HCPCS: 96365; 96361; 93005; 85025; 81001; 36415; 84132; 80053; 76377; 74176; 51702; 96375; 99285; J7613; J2270; J7040; J0696

== ENCOUNTER 2024-07-09 10:32 | Inpatient (IN) | payer MEDICARE ==
--- OUTSIDE RECORDS SUMMARY | 2024-07-09 10:36 | XMS REPORT | Continuity of Care Document ---
Author Name Unknown Address [address] [facility] [place] [address] Organization [facility] [place] Address [address] [facility] [place] [address] Care Team Providers Care Tail Board Man Name Role Phone [place], [facility] Primary Car e Physician Unavailable JORDAN KAUFFMAN Attending Clinician Unavailabl e Doctor Unassigned, [place] Attending Clinician U Vikram Hinton MD Attending Clinician [phone] Nella DE JESUS Attending Clinician Unavailable Nella Thurston Attending Clinician [phone] Tiff Arenas Attending Clinician Nella DE JESUS Admitting Clinician Unavailable Payers Payer Name Policy Type Policy Number Effective Date Expirati on Date Source MEDICARE PART A \\T\\ B [id number] 2016 00:00:00 [employer] DIS[employer] DETERMINATION [facility] [id number] 2017 00:00:00 [employer] MEDICARE ADVANTAGE PLAN [id number] [employer] (MEDICARE REPLACEMENT HMO) [id number] 2023 00:00:00 Problems Condition Name Condition Details Condition Category Status Onset Date Resolution Date Last Treatment Date Treating Clinician Comments Source Mild hyperchole sterolemia Mild hyperchole sterolemia Disease Active 2015-04 00:00: 00 [facility] Gout Gout Disease Active 04-28 00:00: 00 [facility] Hypertensi on Hypertensi on Disease Active 04-28 00:00: 00 [facility] Diabetes Diabetes Disease Active 04-28 00:00: 00 [facility] Allergies, Adverse Reactions, Alerts Allergy Name Allergy Type Status Severity Reaction(s) Onset Date Inactive Date Treating Clinician Comments Source Sulfa (Sulfona mide Antibiot ics) Propensi ty to adverse reaction s Active Unknown - See comments 04-28 00:00: 00 [facility] Codeine Propensi ty to adverse reaction s Active Unknown - See comments 04-28 00:00: 00 [facility] Sulfa (Sulfona mide Antibiot ics) Propensi ty to adverse reaction s Active Unknown - See comments 04-28 00:00: 00 [facility] CODEINE DRUG INGREDI Active Unknown-Cmnt 04-28 00:00: 00 [facility] SULFA (SULFONA MIDE ANTIBIOT ICS) Drug Class Active Unknown-Cmnt 04-28 00:00: 00 [facility] Social History Social Habit Start Date Stop Date Quantity Comments Source Gender identity [facility] Sexual orientation U [facility] Exposure to SARS-CoV-2 (event) Not sure [facility] History of tobacco use Snuff User [facility] History SDOH Alcohol Frequency [facility] History SDOH Alcohol Std Drinks [facility] History SDOH Alcohol Binge [facility] Alcohol intake 2021-10-11 00:00:00 2021-10-11 00:00:00 0 /d [facility] History of Social function 2021-10-11 00:00:00 2021-10-11 00:00:00 [facility] Tobacco Comment 2015-04-28 00:00:00 2015-04-28 00:00:00 1 can lasts 3-4 days; 30 years [facility] Alcohol Comment 2015-04-28 00:00:00 2015-04-28 00:00:00 rare [facility] Cigarettes smoked current (pack per day) - Reported 2015-04-28 00:00:00 2015-04-28 00:00:00 [facility] Cigarette pack-years 2015-04-28 00:00:00 2015-04-28 00:00:00 [facility] Tobacco use and exposure 2015-04-28 00:00:00 2015-04-28 00:00:00 User of smokeless tobacco [facility] Sex Assigned At 1950 00:00:00 1950 00:00:00 [facility] Smoking Status Start Date Stop Date Source Ex-smoker 2015-04-28 00:00:00 2015-04-28 [facility] Ordered Medication Name Filled Medication Name Start Date Stop Date Current Medication? Ordering Clinician Indication Dosage Frequency Signature (SIG) Comments Components Source acetaminoph en (TYLENOL) tablet 1,000 mg 05-23 02:15: 00 05-23 02:08 :00 No 1000mg 1,000 mg, Oral, ONCE, 1 dose, On 05/22/21 at 2015, [facility] HYDROcodone -acetaminop hen (NORCO) 10-325 mg tablet 1 tablet 2019-04 05:15: 00 02-08 04:13 :00 No 1{tbl} 1 tablet, Oral, ONCE NOW, 1 dose, 02/08/20 at 2315, [facility] ondansetron (ZOFRAN (PF)) injection 4 mg 2019-04 03:45: 00 02-08 02:52 :00 No 4mg 4 mg, Slow IV Push, ONCE, 1 dose, 02/08/20 at 2145, [facility] morpHINE injection 4 mg 2019-04 03:45: 00 02-08 02:52 :00 No 4mg 4 mg, Slow IV Push, ONCE, 1 dose, 02/08/20 at 2145, STAT [facility] traMADoL (ULTRAM) 50 mg tablet 2019-04 00:00: 00 02-15 05:59 :00 No [id number] 100mg Take 2 tablets by mouth every 6 (six) hours as needed for Pain (scale 7-10) for up to 7 days. Indication s: acute pain [facility] LISINOPRIL 40 mg tablet 2016-04 00:00: 00 Yes TAKE 1 TABLET BY MOUTH EVERY MORNING [facility] lisinopril (PRINIVIL,Z ESTRIL) 40 mg tablet 2015-04 00:00: 00 Yes [id number] 40mg Take 1 tablet by mouth every morning. [facility] glipiZIDE XL (GLUCOTROL XL) 5 mg 24 hr tablet 2015-04 00:00: 00 Yes [id number] TAKE 1 TABLET BY MOUTH DAILY WITH BREAKFAST [facility] metFORMIN (GLUCOPHAGE ) 500 mg tablet 2015-04 00:00: 00 Yes [id number] 500mg Take 1 tablet by mouth 2 (two) times daily. [facility] atorvastati n (LIPITOR) 10 mg tablet 2015-04 00:00: 00 Yes [id number] 10mg Take 1 tablet by mouth at bedtime. [facility] Vital Signs Vital Name Observation Time Observation Value Comments S ourjose Systolic blood pressure 2021-05-23 02:00:00 157 mm[Hg] [facility] Diastolic blood pressure 2021-05-23 02:00:00 74 mm[Hg] [facility] Heart rate 2021-05-23 02:00:00 87 /min [facility] Respiratory rate 2021-05-23 02:00:00 18 /min [facility] Oxygen saturation in Arterial blood by Pulse oximetry 2021-05-23 02:00:00 98 /min [facility] Body temperature 2021-05-22 23:20:00 36.67 Eveline [facility] Body height 2021-05-22 23:20:00 177.8 cm [facility] Body weight 2021-05-22 23:20:00 108.863 kg [facility] BMI 2021-05-22 23:20:00 34.44 kg/m2 [facility] Systolic blood pressure 2020-02-09 02:56:00 158 mm[Hg] [facility] Diastolic blood pressure 2020-02-09 02:56:00 65 mm[Hg] [facility] Heart rate 2020-02-09 02:56:00 89 /min [facility] Respiratory rate 2020-02-09 02:56:00 18 /min [facility] Oxygen saturation in Arterial blood by Pulse oximetry 2020-02-09 02:56:00 98 /min [place] [facility] BMI 2020-02-09 01:19:00 33.72 kg/m2 [facility] Body temperature 2020-02-09 01:19:00 37.11 Eveline [facility] Body height 2020-02-09 01:19:00 177.8 cm [facility] Body weight 2020-02-09 01:19:00 106.595 kg [facility] Procedures Procedure Date / Time Performed Performing Clinician Source AUTHORIZATION FOR RELEASE OF PHI 2022-09-29 05:01:00 Doctor Unassigned, [place] [facility] DME/SUPPLY JUSTIFICATION 2022-09-14 05:01:00 Doc tor Unassigned, [place] [facility] URINALYSIS 2021-05-23 00:20[facility] 2021-05-23 00:16:00 Nella De Jesus [facility] COVID-19 (ID NOW RAPID TESTING) 2021-05-23 00:16:00 Nella De Jesus [facility] MAGNESIUM 2021-05-23 00:16:00 [facility] TROPONIN I 2021-05-23 00:16:00 [facility] COMP. METABOLIC PANEL ([id number]) 2021-05-23 00:16:00 Nella De Jesus [facility] CBC WITH DIFF 2021-05-23 00:16:00 Nella De Jesus [facility] XR CHEST 1 VW 2021-05-22 23:55:42 Nella De Jesus [facility] CONSENT/REFUSAL FOR DIAGNOSIS AND TREATMENT 2021-05-22 23:13:29 Doctor Unassigned, [place] [facility] NOTICE OF PRIVACY PRACTICES 2021-05-22 23:13:08 Doctor Unassigned, [place] [facility] CT ABDOMEN PELVIS WO CONTRAST 2020-02-09 03:12:47 Tiff Vance [facility] XR CHEST 1 VW 2020-02-09 02:49:18 Tiff Vance [facility] XR RIBS 3 VW RIGHT 2020-02-09 02:49:18 Wendie Vance [facility] URINALYSIS 2020-02-09 02:02:00 Tiff Vance [facility] CONSENT/REFUSAL FOR DIAGNOSIS AND TREATMENT 2020-02-09 01:13:03 Doctor Unassigned, [place] [facility] NOTICE OF PRIVACY PRACTICES 2020-02-09 01:12:44 Doctor Unassigned, [place] [facility] Encounters Start Date/Time End Date/Time Encounter Type Admission Type Attending [facility] Care Facility Care Department Encounter ID Source 2021-01-29 03:56:53 Emergency [facility] [id number] [facility] 2023-09-27 00:00:00 2023-09-27 00:00:00 Outpatient JORDAN AGUILA [facility] [id number] [facility] 2023-02-23 00:00:00 2023-02-23 00:00:00 Outpatient [facility] [id number] [facility] Medical [facility] 2023-01-31 00:00:00 2023-01-31 00:00:00 [facility] [id number] [facility] 2023-01-16 00:00:00 2023-01-16 00:00:00 Outpatient [facility] [id number] [facility] 2022-09-29 00:00:00 2022-09-29 00:00:00 Orders Only Doctor Unassigned, [place] [facility] [id number] [facility] 2022-09-14 00:00:00 2022-09-14 00:00:00 Orders Only Doctor Unassigned, [place] [facility] [id number] [id number] [facility] 2022-09-13 00:00:00 2022-09-13 00:00:00 Telephone Vikram Millan [facility] [id number] [id number] [facility] 2021-05-22 17:33:00 2021-05-22 20:14:00 Emergency X Nella DE JESUS [facility] [id number] [facility] 2021-05-22 17:33:00 2021-05-22 20:14:00 Emergency Nella De Jesus [facility] [id number] [id number] [facility] 2020-02-08 19:21:00 2020-02-08 22:42:00 Emergency Tiff Vance [facility] [id number] [facility] Results Test Description Test Time Test Comments Results Result Co mments Source [facility] [id number] 01:01:15* Test Item Value Reference Range Interpretation Comme nts NT-proBNP (test code = 6901244980) 403 pg/mL See_Comment H [Automated message] The system which generated this result transmitted reference range: <=125. The reference range was not used to interpret this result as normal/abnormal. EUGENIA (test code = EUGENIA) Biotin has been reported to cause a negative bias, interpret results relative to patient's use of biotin. Lab Interpretation (test code = 44954-4) [facility]normal [facility] 00:52:57* Test Item Value Reference Range Interpretation Comme nts MAGNESIUM (test code = 2655074299) 1.8 mg/dL 1.7-2.4 Lab Interpretation (test cod e = 49955-5) [facility] (31312)2021-05-23 00:52:37* Test Item Value Reference Range Interpretation Comme nts NA (test code = 5220490030) 134 mmol/L 135-145 L K (test code = 7306330062) 5.1 mmol/L 3.5-5.0 H CL (test code = 7597609843) 105 mmol/L 98-108 CO2 TOTAL (test code = 3263256478) 20 mmol/L 23-31 L AGAP (test code = 2303280886) 2-16 BUN (test code = 4483419153) 50 mg/dL 7-23 H GLUCOSE (test code = 5216034696) 301 mg/dL 70-110 H CREATININE (test code = 6969009948) 1.97 mg/dL 0.60-1.25 H TOTAL BILI (test code = 7707423746) 0.5 mg/dL 0.1-1.1 CALCIUM (test code = 2798227959) 9.1 mg/dL 8.6-10.6 T PROTEIN (test code = 2698435759) 8.2 g/dL 6.3-8.2 ALBUMIN (test code = 2326558524) 4.9 g/dL 3.5-5.0 ALK PHOS (test code = 5547751777) 99 U/L 34-122 ALTv (test code = 1742-6) 21 U/L 5-50 AST(SGOT) (test code = 6949908801) 24 U/L 13-40 eGFR (test code = 4093726018) mL/min/1.73m2 EUGENIA (test code = EUGENIA) Association [...] imaging tests). Lab Interpretation (test code = 58736-0) Abnormal [facility] WITH [id number] 00:42:34* Test Item Value Reference Range Interpretation Comme nts WBC (test code = 6690-2) See_Comment H [Automated [employer]] The system which generated this result transmitted reference range: 4.20 - 10.70 10*3/?L. The reference range was not used to interpret this result as normal/abnormal. RBC (test code = 789-8) See_Comment [[employer]] The system which generated this result transmitted [...] 32.3 g/dL 31.2-35.0 RDW-SD (test code = 79996-1) 48.0 fL 38.5-51.6 RDW-CV (test code = 788-0) 15.5 % 12.1-15.4 H PLT (test code = 777-3) See_Comment [Automated messa ge] The system which generated this result transmitted reference range: 150 - 328 10*3/?L. The reference range was not used to interpret this result as normal/abnormal. MPV (test code = 00954-2) 8.7 fL 9.8-13.0 L NRBC/100 WBC (test code = 4206701290) See_Comment [Automated [employer] ssage] The system which generated this result transmitted reference range: 0.0 - 10.0 /100 WBCs. The reference range was not used to interpret this result as normal/abnormal. NRBC x10^3 (test code = 8054380647) <0.01 See_Comment [Automated messa ge] The system which generated this result transmitted reference range: 10*3/?L. The reference range was not used to interpret this result as normal/abnormal. GRAN MAT (NEUT) % (test code = 770-8) 70.6 % IMM GRAN % (test code = 5078655936) 0.70 % LYMPH % (test code = 736-9) 17.7 % MONO % (test code = 5905-5) 8.2 % EOS % (test code = 713-8) 2.4 % BASO % (test code = 706-2) 0.4 % GRAN MAT x10^3(ANC) (test code = 3810502655) 8.91 10*3/uL 1.99-6.95 H IMM GRAN x10^3 (test code = 6229636910) 0.09 10*3/uL 0.00-0.06 H LYMPH x10^3 (test code = 731-0) 2.23 10*3/uL 1.09-3.23 MONO x10^3 (test code = 742-7) 1.04 10*3/uL 0.36-1.02 H EOS x10^3 (test code = 711-2) 0.30 10*3/uL 0.06-0.53 BASO x10^3 (test code = 704-7) 0.05 10*3/uL 0.01-0.09 Lab Interpretation (test code = 48461-3) [facility]normal [facility] 02:22:00* Test Item Value Reference Range Interpretation Comme nts APPEARANCE (test code = 2080875945) Clear Clear COLOR (test code = 0854745750) Yellow Yellow PH (test code = 7753225326) 4.8-8.0 SP GRAVITY (test code = 6587529993) 1.003-1.030 GLU U QUAL (test code = 3416578850) 50 mg/dL Normal A BLOOD (test code = 0073635751) 1+ Negative A KETONES (test code = 0664011458) Negative Negative PROTEIN (test code = 2887-8) 30 mg/dL Negative A UROBILIN (test code = 4519393965) Normal Normal BILIRUBIN (test code = 3495424003) Negative Negative NITRITE (test code = 7972816251) Negative Negative LEUK YUMI (test code = 0770960588) Negative Negative RBC/HPF (test code = 3547383769) See_Comment [[employer]ated [employer]] The system which generated this result transmitted reference range: 0 - 3 HPF. The reference range was not used to interpret this result as normal/abnormal. WBC/HPF (test code = 4207240283) <1 See_Comment [[employer]ated [employer]] The system which generated this result transmitted reference range: 0 - 5 HPF. The reference range was not used to interpret this result as normal/abnormal. BACTERIA (test code = 5412421930) Negative Negative MUCOUS (test code = 9731167427) Slight Negative LPF A SQ EPITH (test code = 1653407175) <1 HPF Lab Interpretation (test code = 05285-9) Abnormal [facility]"
[2024-07-09 11:00] LABS: Absolute Basophils 0.1 K/uL (0-0.5); Absolute Eosinophils 0.2 K/uL (0-0.5); Absolute Lymphocytes (CBC) 1.2 K/uL (0.7-4.9); Absolute Monocytes 0.8 K/uL (0.1-1.3); Basophils % 0.6 % (0-1.3); Hematocrit 28.9 % (39.6-49.0); Hemoglobin 9.5 g/dL (13.6-17.9); MCHC 32.9 g/dL (32.0-36.0); MCV 85.3 fL (80-100); MPV 6.8 fL (7.6-11.3); Monocytes % 9.6 % (3.3-12.3); Neutrophils % 71.8 % (41.7-73.7); Platelets 230 thou/uL (152-406); RBC Red Blood Cell Count 3.39 M/uL (4.33-5.43); Red Cell Distribution Width 17.5 % (12.1-15.2)
[2024-07-09] MEDS ORDERED: NA CHLORIDE 0.9% 1,000 ML ONE (11:11)
[2024-07-09 11:22] LABS: Albumin 3.6 g/dL (3.4-5.0); Albumin/Globulin Ratio 0.8 (1.1-1.8); Anion Gap 8.8 mEq/L (5.0-15.0); Bilirubin Total 0.3 mg/dL (0.2-1.0); Globulin 4.6 g/dL (2.3-3.5); Potassium 3.8 mEq/L (3.5-5.1); Protein, Total 8.2 g/dL (6.4-8.2)
[2024-07-09] MEDS ORDERED: D10W 500 ML IV ONE (11:36)
--- NOTE | 2024-07-09 12:23 | EDPHYS ---
Physician Documentation [facility] Name: Giovanni Lopez Age: 74 yrs Sex: Male : 1950 Arrival Date: 07/09/2024 Time: 10:32 Bed 20 Private MD: ED Physician Nasim Da Silva Historical: - Allergies: 07/09 10:46 HYDROCODONE; ll1 10:46 Sulfa (Sulfonamide Antibiotics); ll1 - PMHx: 10:46 CHF; diabetes mellitus; Gout; Hypercholesterolemia; Hypertensive disorder; ll1 - Immunization history:: Adult Immunizations up to date. - Social history:: Smoking status: Patient denies any tobacco usage or history of. Vital Signs: 10:43 BP 127 / 75; Pulse 91; Resp 18; Temp 98; Pulse Ox 98% on R/A; ll1 12:20 BP 117 / 81; Pulse 91; Resp 18; Pulse Ox 96% on R/A; kj2 13:30 BP 128 / 58; Pulse 75; Resp 18; Temp 98(O); Pulse Ox 96% on R/A; kj2 16:45 BP 142 / 71; Pulse 83; Resp 20; Pulse Ox 97% on 2.5 lpm NC; kj2 17:45 BP 131 / 96; Pulse 55; Resp 20; Pulse Ox 100% on 2.5 lpm NC; kj2 18:45 BP 120 / 56; Pulse 50; Resp 18; Pulse Ox 100% on 2.5 lpm NC; kj2 20:38 BP 118 / 60; Resp 20; Pulse Ox 98% on 2.5 lpm NC; kj2 21:35 BP 148 / 56; Pulse 94; Resp 18; Pulse Ox 99% ; kj2 22:28 BP 131 / 54; Pulse 99; Resp 18; Pulse Ox 100% 2.5 lpm ; kj2 MDM: 10:52 Medical Screening Exam initiated 07/09 10:46 Order name: CBC with Diff; Complete Time: 11:35 07/09 10:46 Order name: CMP; Complete Time: 11:35 07/09 10:46 Order name: Lipase; Complete Time: 11:35 07/09 10:46 Order name: Urinalysis w/ reflexes 07/09 11:14 Order name: Glucose, Ancillary Testing; Complete Time: 11:35 EDMS 07/09 11:17 Order name: Glucose, Ancillary Testing; Complete Time: 11:35 EDMS 07/09 11:50 Order name: Glucose, Ancillary Testing; Complete Time: 12:19 EDMS 07/09 12:08 Order name: Glucose, Ancillary Testing; Complete Time: 12:19 EDMS 07/09 12:30 Order name: Glucose, Ancillary Testing EDMS 07/09 13:17 Order name: Glucose, Ancillary Testing EDMS 07/09 13:18 Order name: Glucose, Ancillary Testing EDMS 07/09 13:34 Order name: Ferritin EDMS 07/09 13:34 Order name: Transferrin Sat/Iron Binding EDMS 07/09 13:34 Order name: Cortisol EDMS 07/09 13:34 Order name: Cortisol EDMS 07/09 14:11 Order name: Glucose, Ancillary Testing EDMS 07/09 14:17 Order name: Thyroid Stimulating Hormone EDMS 07/09 14:44 Order name: T4 Free EDMS 07/09 15:31 Order name: Glucose, Ancillary Testing EDMS 07/09 16:36 Order name: Glucose, Ancillary Testing EDMS 07/09 18:27 Order name: Glucose, Ancillary Testing EDMS 07/09 20:25 Order name: Glucose, Ancillary Testing EDMS 07/09 21:31 Order name: Glucose, Ancillary Testing EDMS 07/09 23:56 Order name: Glucose, Ancillary Testing EDMS 07/10 02:22 Order name: Glucose, Ancillary Testing EDMS 07/10 04:23 Order name: Glucose, Ancillary Testing EDMS 07/10 05:33 Order name: Glucose, Ancillary Testing EDMS 07/10 07:26 Order name: Glucose, Ancillary Testing EDMS 07/10 08:37 Order name: Glucose, Ancillary Testing EDMS 07/10 09:27 Order name: Glucose, Ancillary Testing EDMS 07/10 10:42 Order name: Glucose, Ancillary Testing EDMS 07/09 10:46 Order name: IV Saline Lock; Complete Time: 10:54 gb1 07/09 10:46 Order name: Labs collected and sent; Complete Time: 10:54 gb1 Administered Medications: 11:14 Drug: NS 0.9% IV 1000 ml IV at 1 bolus Per protocol; to be given as a bolus over 60 ll1 minutes Route: IV; Rate: 1 bolus; Site: left antecubital; 14:09 Follow up: IV Status: Completed infusion; IV Intake: 1000ml kj2 11:39 Drug: D10 in Water IVP 1000 ml IVP once Route: IVP; Site: left antecubital; 1 14:09 Follow up: Response: No adverse reaction kj2 22:50 Drug: Acetaminophen PO 1000 mg PO once Route: PO; kj2 Disposition Summary: 07/09/24 12:22 Hospitalization Ordered Notes: Hospitalization Status: Observation gb1 Provider: Jerod Neely gb1 Condition: Fair gb1 Problem: an acute exacerbation gb1 Symptoms: have worsened gb1 Bed/Room Type: Standard gb1 Location: Telemetry/MedSurg (Inpatient)(07/10/24 10:20) aa5 Room Assignment: 414(07/10/24 10:30) bc6 Diagnosis - Diabetes mellitus due to underlying condition with hypoglycemia without coma gb1 Forms: - Medication Reconciliation Form gb1 - SBAR form gb1 - Leadership Thank You Letter gb1 Signatures: Dispatcher [employer] EDMS Tatianna Samuel, RN RN aa5 Dm Flannery RN RN jl7 Marciano Dickson RN RN ll1 Lexi Cary rv1 Karon Hassan bc6 Nasim Da Silva MD MD sp4 Chio Rene MD MD gb1 Tamika Figueroa RN RN kj2 Corrections: (The following items were deleted from the chart) 10:46 10:46 CBC+H.LAB.BRZ ordered. EDMS EDMS 10:46 10:46 COMPREHENSIVE METABOLIC PANEL+C.LAB.BRZ ordered. EDMS EDMS 10:46 10:46 LIPASE+C.LAB.BRZ ordered. EDMS EDMS 10:46 10:46 Urinalysis+U.LAB.BRZ ordered. EDMS EDMS 14:00 12:22 Telemetry/MedSurg (observation) gb1 jl7 14:00 12:22 gb1 jl7 14:18 13:34 Thyroid Stimulating Hormone ordered. EDMS EDMS 19:10 14:00 [facility] ER HOLD jl7 rv1 19:10 14:00 ERHOLD- jl7 rv1 19:11 19:10 2- rv1 rv1 19:23 19:10 Intensive Care Unit rv1 rv1 19:23 19:11 rv1 rv1 07/10 10:20 07/09 19:23 [facility] ER HOLD rv1 aa5 07/10 10:20 07/09 19: ERHOLD- rv1 5 07/10 10:30 10:20 416 aa5 6
--- NOTE | 2024-07-09 12:23 | ER ---
Nurse's Notes [facility] Name: Giovanni Lopez Age: 74 yrs Sex: Male : 1950 Arrival Date: 07/09/2024 Time: 10:32 Bed 20 Private MD: Diagnosis: Diabetes mellitus due to underlying condition with hypoglycemia without coma Presentation: 07/09 10:43 Chief complaint: Patient states: Controlled slide to the floor for low blood sugar. ll1 Initial blood sugar 30. 20 L AC 1 bag D 10, up to 207 and more alert. BS then dropped to 77 and %%. Given 1 more bag of D 10 en route. Fingerstick 121 upon arrival. Coronavirus screen: Client denies travel out of the [place] in the last 14 days. At this time, the client does not indicate any symptoms associated with coronavirus-19. Ebola Screen: Patient denies travel to an Ebola-affected area in the 21 days before illness onset. Initial Sepsis Screen: Does the patient meet any 2 criteria? No. Patient's initial sepsis screen is negative. Does the patient have a suspected source of infection? No. Patient's initial sepsis screen is negative. Risk Assessment: Do you want to hurt yourself or someone else? Patient reports no desire to harm self or others. Onset of symptoms was July 09, 2024. 10:43 Method Of Arrival: EMS ll1 10:43 Acuity: SOBEIDA 2 ll1 Triage Assessment: 10:46 General: Appears in no apparent distress. Behavior is calm, cooperative, appropriate ll1 for age, Reports fatigue for. Pain: Denies pain. Neuro: Reports weakness. Historical: - Allergies: 10:46 HYDROCODONE; ll1 10:46 Sulfa (Sulfonamide Antibiotics); ll1 - PMHx: 10:46 CHF; diabetes mellitus; Gout; Hypercholesterolemia; Hypertensive disorder; ll1 - Immunization history:: Adult Immunizations up to date. - Social history:: Smoking status: Patient denies any tobacco usage or history of. Screenin:15 [facility] ED Fall Risk Assessment (Adult) History of falling in the last 3 months, kj2 including since admission No falls in past 3 months (0 pts) Confusion or Disorientation No (0 pts) Intoxicated or Sedated No (0 pts) Impaired Gait No (0 pts) Mobility Assist Device Used No (0 pt) Altered Elimination No (0 pt) Score/Fall Risk Level 0 - 2 = Low Risk Maintained a safe environment, Hourly rounding (assess needs \T\ fall precautionary measures) done. Abuse screen: Denies threats or abuse. Denies injuries from another. Nutritional screening: No deficits noted. Tuberculosis screening: No symptoms or risk factors identified. Assessment: 11:39 Reassessment: No changes from previously documented assessment. Patient and/or family ll1 updated on plan of care and expected duration. Pain level reassessed. Patient is alert, oriented x 3, equal unlabored respirations, skin warm/dry/pink. 12:21 Reassessment: No changes from previously documented assessment. Patient and/or family kj2 updated on plan of care and expected duration. Pain level reassessed. Patient is alert, oriented x 3, equal unlabored respirations, skin warm/dry/pink. 13:30 Reassessment: Patient appears in no apparent distress at this time. Patient and/or kj2 family updated on plan of care and expected duration. Pain level reassessed. Patient is alert, oriented x 3, equal unlabored respirations, skin warm/dry/pink. 14:00 Reassessment: 1400 accucheck reading is 206mgdl, patient drank orange juice 15 minutes kj2 prior to accucheck. 15:45 Reassessment: Patient and/or family updated on plan of care and expected duration. Pain kj2 level reassessed. Patient is alert, oriented x 3, equal unlabored respirations, skin warm/dry/pink. patient ate 4 crackers and drank orange juice 1 cup. 16:45 Reassessment: Patient appears in no apparent distress at this time. Patient and/or kj2 family updated on plan of care and expected duration. Pain level reassessed. Patient is alert, oriented x 3, equal unlabored respirations, skin warm/dry/pink. 17:45 Reassessment: Patient appears in no apparent distress at this time. Patient and/or kj2 family updated on plan of care and expected duration. Pain level reassessed. Patient is alert, oriented x 3, equal unlabored respirations, skin warm/dry/pink. 18:45 Reassessment: Patient appears in no apparent distress at this time. Patient and/or kj2 family updated on plan of care and expected duration. Pain level reassessed. Patient is alert, oriented x 3, equal unlabored respirations, skin warm/dry/pink. 19:00 Reassessment: RN to chart in [facility] as [place] orders not yet available. kj2 20:38 Reassessment: Patient appears in no apparent distress at this time. Patient and/or kj2 family updated on plan of care and expected duration. Pain level reassessed. Patient is alert, oriented x 3, equal unlabored respirations, skin warm/dry/pink. 21:35 Reassessment: Patient appears in no apparent distress at this time. Patient and/or kj2 family updated on plan of care and expected duration. Pain level reassessed. Patient is alert, oriented x 3, equal unlabored respirations, skin warm/dry/pink. 22:28 Reassessment: Patient appears in no apparent distress at this time. Patient and/or kj2 family updated on plan of care and expected duration. Pain level reassessed. Patient is alert, oriented x 3, equal unlabored respirations, skin warm/dry/pink. Vital Signs: 10:43 BP 127 / 75; Pulse 91; Resp 18; Temp 98; Pulse Ox 98% on R/A; ll1 12:20 BP 117 / 81; Pulse 91; Resp 18; Pulse Ox 96% on R/A; kj2 13:30 BP 128 / 58; Pulse 75; Resp 18; Temp 98(O); Pulse Ox 96% on R/A; kj2 16:45 BP 142 / 71; Pulse 83; Resp 20; Pulse Ox 97% on 2.5 lpm NC; kj2 17:45 BP 131 / 96; Pulse 55; Resp 20; Pulse Ox 100% on 2.5 lpm NC; kj2 18:45 BP 120 / 56; Pulse 50; Resp 18; Pulse Ox 100% on 2.5 lpm NC; kj2 20:38 BP 118 / 60; Resp 20; Pulse Ox 98% on 2.5 lpm NC; kj2 21:35 BP 148 / 56; Pulse 94; Resp 18; Pulse Ox 99% ; kj2 22:28 BP 131 / 54; Pulse 99; Resp 18; Pulse Ox 100% 2.5 lpm ; kj2 ED Course: 10:42 Patient arrived in ED. ll1 10:45 Chio Rene MD is Attending Physician. gb1 10:46 Triage completed. ll1 11:19 Maintain EMS IV. Dressing intact. Good blood return noted. Site clean \T\ dry. Gauge \T\ ll 1 site: 20 L AC. 11:39 Marciano Dickson, RN is Primary Nurse. ll1 12:15 Patient has correct armband on for positive identification. Bed in low position. Call kj2 light in reach. Provided Education on: call light. 12:21 Chio Rene MD is Hospitalizing Provider. gb1 12:21 Jerod Neely MD is Hospitalizing Provider. gb1 21:35 Assisted to bathroom. kj2 22:45 Attending Physician role handed off by Chio Rene MD sp4 22:45 Nasim Da Silva MD is Attending Physician. sp4 07/10 00:09 Report given to JOLANTA Leahy. kj2 Administered Medications: 07/09 11:14 Drug: NS 0.9% IV 1000 ml IV at 1 bolus Per protocol; to be given as a bolus over 60 ll1 minutes Route: IV; Rate: 1 bolus; Site: left antecubital; 14:09 Follow up: IV Status: Completed infusion; IV Intake: 1000ml kj2 11:39 Drug: D10 in Water IVP 1000 ml IVP once Route: IVP; Site: left antecubital; ll1 14:09 Follow up: Response: No adverse reaction kj2 22:50 Drug: Acetaminophen PO 1000 mg PO once Route: PO; kj2 Medication: 12:15 VIS not applicable for this client. kj2 Intake: 14:09 IV: 1000ml; Total: 1000ml. kj2 Outcome: 12:22 Decision to Hospitalize by Provider. gb1 07/10 11:03 Patient left the ED. aa5 Signatures: Tatianna Samuel, RN RN aa5 Marciano Dickson, RN RN ll1 Nasim Da Silva MD MD sp4 Chio Rene MD MD gb1 Tamika Figueroa RN RN kj2
--- NOTE | 2024-07-09 13:27 | P.HP ---
Certification for Inpatient Patient admitted to: Observation With expected LOS: <2 Midnights Practitioner: I am a practitioner with admitting privileges, knowledge of patient current condition, hospital course, and medical plan of care. Services: Services provided to patient in accordance with Admission requirements found in Title 42 Section 412.3 of the Code of Federal Regulations Patient History Date of Service: 07/09/24 Reason for admission: hypoglycemia History of Present Illness: 74-year-old male with history of diabetes, gout, heart failure, hyperlipidemia, hypertension presents with hypoglycemia. Roughly around 3:00 this morning he felt he was having sweats. He noticed his blood sugar was low at 41. He is currently on glipizide and pioglitazone. The patient reports that he has had blood sugar low in the past. His primary care is managing it. He receives most of his medicines from the [place]. He denies overtaking medication. In the ER he was noted to be hypoglycemic. He did receive treatment. His blood sugars have remained low. He is being admitted for monitoring and treatment for low blood sugars Review of Systems 10-point ROS is otherwise unremarkable Physical Examination - Physical Exam General: Alert, Oriented x3 HEENT: Atraumatic, Normocephalic Respiratory: Clear to auscultation bilaterally, Normal air movement Cardiovascular: Regular rate/rhythm, Normal S1 S2 Gastrointestinal: Soft and benign, Non-distended Musculoskeletal: No clubbing, No swelling - Studies Laboratory Data (last 24 hrs) 07/09/24 07/09/24 10:50 10:50 WBC 8.30 Hgb 9.5 L Hct 28.9 L Plt Count 230 Sodium 137 Potassium 3.8 BUN 33 H Creatinine 1.88 H Glucose 72 L Total Bilirubin 0.3 AST 26 ALT 27 Alkaline Phosphatase 134 H Lipase 35 Assessment and Plan - Problems (Diagnosis) (1) Hypoglycemia Current Visit: Yes Status: Acute (2) Diabetes Current Visit: Yes Status: Acute - Plan 74-year-old male with history of diabetes, gout, heart failure, hyperlipidemia, hypertension presents with hypoglycemia. hypoglycemia niddm --Etiology unclear, may be medication induced -- Check hemoglobin A1c -- Fingerstick blood sugars every hour -- Will place him on D5 NS but may need D10 -- Hold oral hypoglycemics anemia --unclear etiology --may need further workup,check iron studies gout chf hld htn --resume home medications scd full - Advance Directives Does patient have a Living Will: No Does patient have a Durable POA for Healthcare: No
[2024-07-09] MEDS ORDERED: D10W 125 ML IV PRN (13:29)
[2024-07-09] MEDS ORDERED: GLUCAGON 1 MG/VIAL IM PRN (13:29)
[2024-07-09 14:25] LABS: Specific Gravity 1.015 (1.005-1.030); Sqamous Epithelial <5 /HPF (None Seen); Urine Bacteria None Seen /HPF (<20); Urine Bilirubin NEGATIVE (Negative); Urine Blood Trace (Negative); Urine Clarity Clear (Clear); Urine Color Light-Yellow (Yellow); Urine Culture Reflex Order NOT NEEDED; Urine Glucose NEGATIVE (Negative); Urine Ketones NEGATIVE (Negative); Urine Microscopic Reflex YN ORDER UMIC; Urine Mucus Slight /HPF (None Seen); Urine Nitrite NEGATIVE (Negative); Urine Protein 1+ (Negative); Urine RBC <5 /HPF (None Seen); Urine Urobilinogen Normal (Normal); Urine WBC <5 /HPF (<5); Urine pH 5.5 (5.0-7.0)
[2024-07-09 14:37] LABS: Ferritin 223.6 ng/mL (26-388)
[2024-07-09 14:41] LABS: Thyroid Stimulating Hormone 6.93 uIU/mL (0.358-3.740)
[2024-07-09] MEDS ORDERED: ACETAMINOPHEN 500 MG TAB ONE (22:48)
[2024-07-09 23:14] VITALS: BMI 35.2
[2024-07-10] MEDS ORDERED: HYDROCODONE/APAP 5/325 MG TAB PO PRN (07:38)
[2024-07-10] MEDS ORDERED: ENOXAPARIN 30 MG/0.3 ML SQ ONE (07:39)
[2024-07-10] MEDS: ACETAMINOPHEN 325 MG TABLET PO PRN ×2 (07:45→21:07)
[2024-07-10] MEDS: ENOXAPARIN 30 MG/0.3 ML SQ SCH (07:45)
--- NOTE | 2024-07-10 11:07 | P.PN ---
Subjective Date of Service: 07/10/24 Chief Complaint: hypoglycemia Subjective: No new changes Patient eating. Denies any symptoms Review of Systems 10-point ROS is otherwise unremarkable Physical Examination - Vital Signs Temperature: 98.0 F Blood Pressure: 114/66 Pulse: 96 Respirations: 16 Pulse Ox (%): 96 - Physical Exam General: Alert, Oriented x3 HEENT: Atraumatic, Normocephalic Neck: Supple Respiratory: Clear to auscultation bilaterally Cardiovascular: No edema, Regular rate/rhythm Gastrointestinal: Normal bowel sounds, Soft and benign, Non-distended Musculoskeletal: No clubbing, No swelling Integumentary: No rashes, No breakdown Neurological: Normal gait, Normal strength at 5/5 x4 extr - Studies Laboratory Data (last 24 hrs) 07/09/24 10:50 Sodium 137 Potassium 3.8 BUN 33 H Creatinine 1.88 H Glucose 72 L Total Bilirubin 0.3 AST 26 ALT 27 Alkaline Phosphatase 134 H Lipase 35 Assessment And Plan - Plan 1. Hypoglycemia secondary to polypharmacy - Patient on glipizide and pioglitazone at home which have been held on current admission -On D5 NS, and blood sugars currently in the 100s - Monitor overnight and if clinically stable tomorrow and blood sugars within acceptable limits, will discharge back home
[2024-07-10] MEDS ORDERED: allopurinoL 100 MG TAB PO PRN (17:17)
[2024-07-10] MEDS ORDERED: ONDANSETRON 4 MG/2 ML VIAL IV PRN (18:42)
[2024-07-10] MEDS ORDERED: ATORVASTATIN 10 MG TAB PO SCH (21:00)
[2024-07-11 06:23] LABS: Hematocrit 26.5 % (39.6-49.0); Hemoglobin 8.8 g/dL (13.6-17.9); MCH 28.4 pg (27.0-35.0); MCHC 33.2 g/dL (32.0-36.0); MCV 85.5 fL (80-100); MPV 7.2 fL (7.6-11.3); Neutrophils % 72.8 % (41.7-73.7); Platelets 188 thou/uL (152-406); Red Cell Distribution Width 17.8 % (12.1-15.2)
[2024-07-11 06:24] LABS: Absolute Basophils 0.1 K/uL (0-0.5); Absolute Eosinophils 0.2 K/uL (0-0.5); Absolute Lymphocytes (CBC) 1.5 K/uL (0.7-4.9); Absolute Neutrophil 7.4 K/uL (1.8-8.0); Basophils % 0.5 % (0-1.3); Eosinophils % 2.2 % (0-4.4); Lymphocytes % 14.2 % (15.3-44.8); Monocytes % 10.3 % (3.3-12.3)
[2024-07-11 06:55] LABS: Albumin 3.1 g/dL (3.4-5.0); Albumin/Globulin Ratio 0.8 (1.1-1.8); Anion Gap 8.4 mEq/L (5.0-15.0); Bilirubin Total 0.6 mg/dL (0.2-1.0); Globulin 4.1 g/dL (2.3-3.5); Potassium 4.4 mEq/L (3.5-5.1); Protein, Total 7.2 g/dL (6.4-8.2)
[2024-07-11] MEDS: AMLODIPINE 10 MG TAB PO SCH (08:46)
[2024-07-11] MEDS: ENOXAPARIN 40 MG/0.4 ML SQ SCH (08:47)
[2024-07-11] MEDS: FUROSEMIDE 20 MG TABLET PO SCH (08:47)
[2024-07-11] MEDS ORDERED: AMLODIPINE 10 MG TAB PO SCH (09:00)
[2024-07-11] MEDS ORDERED: FUROSEMIDE 20 MG TABLET PO SCH (09:00)
[2024-07-11 09:02] VITALS: O2SAT 95
--- NOTE | 2024-07-11 15:37 | P.DS ---
Admission Date: 07/10/24 Discharge Date: 07/11/24 Disposition: ROUTINE DISCHARGE Discharge Condition: GOOD Reason for Admission: hypoglycemia Hospital Course: 74-year-old male with a history of diabetes, gout, hypertension who presented with hypoglycemia. His glipizide was discontinued. His blood sugars are now within normal range. He has been advised to follow-up with his primary care provider and monitor his blood sugars daily. The remainder of his medical problems are chronic and stable. He is medically optimized for discharge Vital Signs/Physical Exam: Temp Pulse Resp BP Pulse Ox 98.0 F 95 H 17 141/64 H 95 07/11/24 12:00 07/11/24 12:00 07/11/24 12:00 07/11/24 12:00 07/11/24 12:00 General: Alert, In no apparent distress HEENT: Atraumatic, Normocephalic Neck: Supple, 2+ carotid pulse no bruit Respiratory: Clear to auscultation bilaterally, Normal air movement Cardiovascular: No edema, Normal pulses Gastrointestinal: Normal bowel sounds, Hypoactive Musculoskeletal: No clubbing, No swelling Integumentary: No rashes Neurological: Normal gait, Normal speech Lymphatics: No axilla or inguinal lymphadenopathy Laboratory Data at Discharge: WBC 10.20 thou/uL (4.3-10.9) 07/11/24 06:00 Hgb 8.8 g/dL (13.6-17.9) L 07/11/24 06:00 Hct 26.5 % (39.6-49.0) L 07/11/24 06:00 Plt Count 188 thou/uL (152-406) 07/11/24 06:00 Sodium 136 mEq/L (136-145) 07/11/24 06:00 Potassium 4.4 mEq/L (3.5-5.1) 07/11/24 06:00 BUN 31 mg/dL (7-18) H 07/11/24 06:00 Creatinine 1.72 mg/dL (0.70-1.30) H 07/11/24 06:00 Glucose 132 mg/dL (74-106) H 07/11/24 06:00 Magnesium 2.0 mg/dL (1.6-2.4) 07/11/24 06:00 Total Bilirubin 0.6 mg/dL (0.2-1.0) 07/11/24 06:00 AST 13 U/L (15-37) L 07/11/24 06:00 ALT 18 U/L (16-61) 07/11/24 06:00 Alkaline Phosphatase 100 U/L (45-117) 07/11/24 06:00 Lipase 35 U/L (13-75) 07/09/24 10:50 Home Medications: Allopurinol 100 mg PO PRN PRN 07/10/24 Amlodipine [Norvasc*] 10 mg PO DAILY 07/10/24 Atorvastatin Calcium 10 mg PO BEDTIME 07/10/24 Cholecalciferol (Vitamin D3) [Vitamin D3] 2,000 units PO DAILY 07/10/24 Ferrous Gluconate 324 mg PO DAILY 07/10/24 Furosemide 20 mg PO DAILY 07/10/24 Glipizide [Glipizide ER] 10 mg PO BEDTIME 07/10/24 Lisinopril [Zestril] 10 mg PO DAILY 07/10/24 Pioglitazone HCl 30 mg PO DAILY 07/10/24 Diet: ADA Activity: Ad abelino Followup: NONE,NONE [Primary Care Provider] -
[2024-07-11 16:53] VITALS: BP 140/73; TEMP 98.4
== END 2024-07-11 17:45 | disposition home or self-care (01) | DRG 639 ==
LOC: ER 10:32 → ERHOLD 13:29 → 4TH 07-10 10:31 → OBSVTOIN 07-10 16:27
PROVIDERS: ADMIT Internal Medicine; ATTEND Family Medicine
DX: E11.649 Type 2 diabetes mellitus with hypoglycemia without coma (principal); E78.5 Hyperlipidemia, unspecified; M10.9 Gout, unspecified; I11.0 Hypertensive heart disease with heart failure; I50.9 Heart failure, unspecified; Z79.84 Long term (current) use of oral hypoglycemic drugs; Z79.899 Other long term (current) drug therapy
CPT/HCPCS: 36415; 80053; 81001; 82533; 82728; 82947; 83540; 83690; 83735; 84439; 84443; 84466; 85025; 96360; 96361; 99284; G0378; J1650; J7030

== ENCOUNTER 2024-08-06 18:15 | Inpatient (IN) | payer MEDICARE ==
--- OUTSIDE RECORDS SUMMARY | 2024-08-06 18:31 | XMS REPORT | Continuity of Care Document ---
Author Name Unknown Address [address] [place] [address] Organization [facility] [place] Address 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 Role Phone [place] Beck [facility] Primary Car e Physician Unavailable JORDAN KAUFFMAN Attending Clinician Unavailabl e Doctor Unassigned, [place] Attending Clinician U Vikram Hinton MD Attending Clinician [phone] Nella DE JESUS Attending Clinician Unavailable Nella Thurston Attending Clinician [phone] Tiff Arenas Attending Clinician [phone] Nella DE JESUS Admitting Clinician Unavailable Payers Payer Name Policy Type Policy Number Effective Date Expirati on Date Source MEDICARE PART A \\T\\ B [id number] 2016 00:00:00 [employer] DIS[employer]ERMINATION [facility] [id number] 2017 00:00:00 [employer] HEALTH MEDICARE ADVANTAGE PLAN [id number] [employer] (MEDICARE REPLACEMENT HMO) [id number] 2023 00:00:00 Problems Condition Name Condition Details Condition Category Status Onset Date Resolution Date Last Treatment Date Treating Clinician Comments Source Mild hyperchole sterolemia Mild hyperchole sterolemia Disease Active 2015-04 00:00: 00 [facility] Gout Gout Disease Active 04-28 00:00: 00 [facility] Hypertensi on Hypertensi on Disease Active 04-28 00:00: 00 [facility] Diabetes Diabetes Disease Active 04-28 00:00: 00 [facility] Allergies, Adverse Reactions, Alerts Allergy Name Allergy Type Status Severity Reaction(s) Onset Date Inactive Date Treating Clinician Comments Source Sulfa (Sulfona mide Antibiot ics) Propensi ty to adverse reaction s Active Unknown - See comments 04-28 00:00: 00 [facility] Codeine Propensi ty to adverse reaction s Active Unknown - See comments 04-28 00:00: 00 [facility] Sulfa (Sulfona mide Antibiot ics) Propensi ty to adverse reaction s Active Unknown - See comments 04-28 00:00: 00 [facility] CODEINE DRUG INGREDI Active Unknown-Cmnt 04-28 00:00: 00 [facility] SULFA (SULFONA MIDE ANTIBIOT ICS) Drug Class Active Unknown-Cmnt 04-28 00:00: 00 [facility] Social History Social Habit Start Date Stop Date Quantity Comments Source Gender identity [facility] Sexual orientation U [facility] Exposure to SARS-CoV-2 (event) Not sure [facility] History of tobacco use Snuff User [facility] History SDOH Alcohol Frequency [facility] History SDOH Alcohol Std Drinks [facility] History SDOH Alcohol Binge [facility] Alcohol intake 2021-10-11 00:00:00 2021-10-11 00:00:00 0 /d [facility] History of Social function 2021-10-11 00:00:00 2021-10-11 00:00:00 [facility] Tobacco Comment 2015-04-28 00:00:00 2015-04-28 00:00:00 1 can lasts 3-4 days; 30 years [facility] Alcohol Comment 2015-04-28 00:00:00 2015-04-28 00:00:00 rare [facility] Cigarettes smoked current (pack per day) - Reported 2015-04-28 00:00:00 2015-04-28 00:00:00 [facility] Cigarette pack-years 2015-04-28 00:00:00 2015-04-28 00:00:00 [facility] Tobacco use and exposure 2015-04-28 00:00:00 2015-04-28 00:00:00 User of smokeless tobacco [facility] Sex Assigned At 1950 00:00:00 1950 00:00:00 [facility] Smoking Status Start Date Stop Date Source Ex-smoker 2015-04-28 00:00:00 2015-04-28 [facility]00[facility] Ordered Medication Name Filled Medication Name Start Date Stop Date Current Medication? Ordering Clinician Indication Dosage Frequency Signature (SIG) Comments Components Source acetaminoph en (TYLENOL) tablet 1,000 mg 05-23 02:15: 00 05-23 02:08 :00 No 1000mg 1,000 mg, Oral, ONCE, 1 dose, On 05/22/21 at 2015, [facility] HYDROcodone -acetaminop hen (NORCO) 10-325 mg tablet 1 tablet 2019-04 05:15: 00 02-08 04:13 :00 No 1{tbl} 1 tablet, Oral, ONCE NOW, 1 dose, 02/08/20 at 2315, [facility] ondansetron (ZOFRAN (PF)) injection 4 mg 2019-04 03:45: 00 02-08 02:52 :00 No 4mg 4 mg, Slow IV Push, ONCE, 1 dose, 02/08/20 at 2145, [facility] morpHINE injection 4 mg 2019-04 03:45: 00 02-08 02:52 :00 No 4mg 4 mg, Slow IV Push, ONCE, 1 dose, 02/08/20 at 2145, STAT [facility] traMADoL (ULTRAM) 50 mg tablet 2019-04 00:00: 00 02-15 05:59 :00 No [id number] 100mg Take 2 tablets by mouth every 6 (six) hours as needed for Pain (scale 7-10) for up to 7 days. Indication s: acute pain [facility] LISINOPRIL 40 mg tablet 2016-04 00:00: 00 Yes TAKE 1 TABLET BY MOUTH EVERY MORNING [facility] lisinopril (PRINIVIL,Z ESTRIL) 40 mg tablet 2015-04 00:00: 00 Yes [id number] 40mg Take 1 tablet by mouth every morning. [facility] glipiZIDE XL (GLUCOTROL XL) 5 mg 24 hr tablet 2015-04 00:00: 00 Yes [id number] TAKE 1 TABLET BY MOUTH DAILY WITH BREAKFAST [facility] metFORMIN (GLUCOPHAGE ) 500 mg tablet 2015-04 00:00: 00 Yes [id number] 500mg Take 1 tablet by mouth 2 (two) times daily. [facility] atorvastati n (LIPITOR) 10 mg tablet 2015-04 00:00: 00 Yes [id number] 10mg Take 1 tablet by mouth at bedtime. [facility] Vital Signs Vital Name Observation Time Observation Value Comments S ourjose Systolic blood pressure 2021-05-23 02:00:00 157 mm[Hg] [facility] Diastolic blood pressure 2021-05-23 02:00:00 74 mm[Hg] [facility] Heart rate 2021-05-23 02:00:00 87 /min [facility] Respiratory rate 2021-05-23 02:00:00 18 /min [facility] Oxygen saturation in Arterial blood by Pulse oximetry 2021-05-23 02:00:00 98 /min [facility] Body temperature 2021-05-22 23:20:00 36.67 Eveline [facility] Body height 2021-05-22 23:20:00 177.8 cm [facility] Body weight 2021-05-22 23:20:00 108.863 kg [facility] BMI 2021-05-22 23:20:00 34.44 kg/m2 [facility] Systolic blood pressure 2020-02-09 02:56:00 158 mm[Hg] [facility] Diastolic blood pressure 2020-02-09 02:56:00 65 mm[Hg] [facility] Heart rate 2020-02-09 02:56:00 89 /min [facility] Respiratory rate 2020-02-09 02:56:00 18 /min [facility] Oxygen saturation in Arterial blood by Pulse oximetry 2020-02-09 02:56:00 98 /min [facility] BMI 2020-02-09 01:19:00 33.72 kg/m2 [facility] Body temperature 2020-02-09 01:19:00 37.11 Eveline [facility] Body height 2020-02-09 01:19:00 177.8 cm [facility] Body weight 2020-02-09 01:19:00 106.595 kg [facility] Procedures Procedure Date / Time Performed Performing Clinician Source AUTHORIZATION FOR RELEASE OF PHI 2022-09-29 05:01:00 Doctor Unassigned, [place] [facility] DME/SUPPLY JUSTIFICATION 2022-09-14 05:01:00 Doc tor Unassigned, [place] [facility]INALYSIS 2021-05-23 [facility]:20[facility] 2021-05-23 00:16:00 Nella De Jesus [facility] COVID-19 (ID NOW RAPID TESTING) 2021-05-23 00:16:00 Nella De Jesus [facility] MAGNESIUM 2021-05-23 00:16:00 [facility] TROPONIN I 2021-05-23 00:16:00 [facility] COMP. METABOLIC PANEL ([id number]) 2021-05-23 00:16:00 Nella De Jesus [facility] CBC WITH DIFF 2021-05-23 00:16:00 Nella De Jesus [facility] XR CHEST 1 VW 2021-05-22 23:55:42 Nella De Jesus [facility] CONSENT/REFUSAL FOR DIAGNOSIS AND TREATMENT 2021-05-22 23:13:29 Doctor Unassigned, [place] [facility] NOTICE OF PRIVACY PRACTICES 2021-05-22 23:13:08 Doctor Unassigned, [place] [facility] CT ABDOMEN PELVIS WO CONTRAST 2020-02-09 03:12:47 Tiff Vance [facility] XR CHEST 1 VW 2020-02-09 02:49:18 Tiff Vance [facility] XR RIBS 3 VW RIGHT 2020-02-09 02:49:18 Wendie Vance [facility] URINALYSIS 2020-02-09 02:02:00 Tiff Vance [facility] CONSENT/REFUSAL FOR DIAGNOSIS AND TREATMENT 2020-02-09 01:13:03 Doctor Unassigned, [place] [facility] NOTICE OF PRIVACY PRACTICES 2020-02-09 01:12:44 Doctor Unassigned, [place] [facility] Encounters Start Date/Time End Date/Time Encounter Type Admission Type Attending [facility] Care Facility Care Department Encounter ID Source 2021-01-29 03:56:53 Emergency [facility] [id number] [facility] 2023-09-27 00:00:00 2023-09-27 00:00:00 Outpatient JORDAN AGUILA [facility] [id number] [facility] 2023-02-23 00:00:00 2023-02-23 00:00:00 Outpatient [facility] [id number] [facility] 2023-01-31 00:00:00 2023-01-31 00:00:00 [facility] [id number] [facility] 2023-01-16 00:00:00 2023-01-16 00:00:00 Outpatient [facility] [id number] [facility] 2022-09-29 00:00:00 2022-09-29 00:00:00 Orders Only Doctor Unassigned, [place] [facility] [id number] [facility] 2022-09-14 00:00:00 2022-09-14 00:00:00 Orders Only Doctor Unassigned, [place] [facility] [id number] [id number] [facility] 2022-09-13 00:00:00 2022-09-13 00:00:00 [facility]phone [facility] [id number] [id number] [id number] [facility] 2021-05-22 17:33:00 2021-05-22 20:14:00 Emergency X Nella DE JESUS [facility] ERT [id number] [facility] 2021-05-22 17:33:00 2021-05-22 20:14:00 Emergency Nella De Jesus Aster [facility] [id number] [facility] 2020-02-08 19:21:00 2020-02-08 22:42:00 Emergency Tiff Vance [facility] [id number] [id number] [facility] Results Test Description Test Time Test Comments Results Result Co mments Source [facility]-[id number] 01:01:15* Test Item Value Reference Range Interpretation Comme nts NT-proBNP (test code = 7485799302) 403 pg/mL See_Comment H [Automated message] The system which generated this result transmitted reference range: <=125. The reference range was not used to interpret this result as normal/abnormal. EUGENIA (test code = EUGENIA) Biotin has been reported to cause a negative bias, interpret results relative to patient's use of biotin. Lab Interpretation (test code = 57063-0) [facility] 00:52:57* Test Item Value Reference Range Interpretation Comme nts MAGNESIUM (test code = 4908119960) 1.8 mg/dL 1.7-2.4 Lab Interpretation (test cod e = 84969-8) Normal [facility]OLIC PAN[facility] (13442)2021-05-23 00:52:37* Test Item Value Reference Range Interpretation Comme nts NA (test code = 0490066223) 134 mmol/L 135-145 L K (test code = 4997878677) 5.1 mmol/L 3.5-5.0 H CL (test code = 8421784132) 105 mmol/L 98-108 CO2 TOTAL (test code = 8335354500) 20 mmol/L 23-31 L AGAP (test code = 9180824922) 2-16 BUN (test code = 2268076255) 50 mg/dL 7-23 H GLUCOSE (test code = 1040401422) 301 mg/dL 70-110 H CREATININE (test code = 4476751914) 1.97 mg/dL 0.60-1.25 H TOTAL BILI (test code = 3150948623) 0.5 mg/dL 0.1-1.1 CALCIUM (test code = 7793714713) 9.1 mg/dL 8.6-10.6 T PROTEIN (test code = 4121776092) 8.2 g/dL 6.3-8.2 ALBUMIN (test code = 6337766961) 4.9 g/dL 3.5-5.0 ALK PHOS (test code = 4597882547) 99 U/L 34-122 ALTv (test code = 1742-6) 21 U/L 5-50 AST(SGOT) (test code = 2014513125) 24 U/L 13-40 eGFR (test code = 1775904040) mL/min/1.73m2 EUGENIA (test code = EUGENIA) Association [...] imaging tests). Lab Interpretation (test code = 38958-4) Abnormal [facility] WITH [id number] 00:42:34* Test Item Value Reference Range Interpretation Comme nts WBC (test code = 6690-2) See_Comment H [Automated [employer]] The system which generated this result transmitted reference range: 4.20 - 10.70 10*3/?L. The reference range was not used to interpret this result as normal/abnormal. RBC (test code = 789-8) See_Comment [[employer]] The system which generated this result transmitted [...] 32.3 g/dL 31.2-35.0 RDW-SD (test code = 64618-2) 48.0 fL 38.5-51.6 RDW-CV (test code = 788-0) 15.5 % 12.1-15.4 H PLT (test code = 777-3) See_Comment [Automated messa ge] The system which generated this result transmitted reference range: 150 - 328 10*3/?L. The reference range was not used to interpret this result as normal/abnormal. MPV (test code = 19882-4) 8.7 fL 9.8-13.0 L NRBC/100 WBC (test code = 1085384299) See_Comment [Automated [employer] ssage] The system which generated this result transmitted reference range: 0.0 - 10.0 /100 WBCs. The reference range was not used to interpret this result as normal/abnormal. NRBC x10^3 (test code = 5535569347) <0.01 See_Comment [Automated messa ge] The system which generated this result transmitted reference range: 10*3/?L. The reference range was not used to interpret this result as normal/abnormal. GRAN MAT (NEUT) % (test code = 770-8) 70.6 % IMM GRAN % (test code = 7441318340) 0.70 % LYMPH % (test code = 736-9) 17.7 % MONO % (test code = 5905-5) 8.2 % EOS % (test code = 713-8) 2.4 % BASO % (test code = 706-2) 0.4 % GRAN MAT x10^3(ANC) (test code = 1921290372) 8.91 10*3/uL 1.99-6.95 H IMM GRAN x10^3 (test code = 3413953325) 0.09 10*3/uL 0.00-0.06 H LYMPH x10^3 (test code = 731-0) 2.23 10*3/uL 1.09-3.23 MONO x10^3 (test code = 742-7) 1.04 10*3/uL 0.36-1.02 H EOS x10^3 (test code = 711-2) 0.30 10*3/uL 0.06-0.53 BASO x10^3 (test code = 704-7) 0.05 10*3/uL 0.01-0.09 Lab Interpretation (test code = 15406-5) [facility]normal [facility] 02:22:00* Test Item Value Reference Range Interpretation Comme nts APPEARANCE (test code = 7659574689) Clear Clear COLOR (test code = 3829833529) Yellow Yellow PH (test code = 6578203237) 4.8-8.0 SP GRAVITY (test code = 2596127977) 1.003-1.030 GLU U QUAL (test code = 8641592420) 50 mg/dL Normal A BLOOD (test code = 7869472244) 1+ Negative A KETONES (test code = 9506245110) Negative Negative PROTEIN (test code = 2887-8) 30 mg/dL Negative A UROBILIN (test code = 8238105148) Normal Normal BILIRUBIN (test code = 9152374690) Negative Negative NITRITE (test code = 7340493034) Negative Negative LEUK YUMI (test code = 8745653247) Negative Negative RBC/HPF (test code = 9749153517) See_Comment [Automated [employer]] The system which generated this result transmitted reference range: 0 - 3 HPF. The reference range was not used to interpret this result as normal/abnormal. WBC/HPF (test code = 9755666608) <1 See_Comment [Automated [employer]] The system which generated this result transmitted reference range: 0 - 5 HPF. The reference range was not used to interpret this result as normal/abnormal. BACTERIA (test code = 4369872750) Negative Negative MUCOUS (test code = 6223762898) Slight Negative LPF A SQ EPITH (test code = 4021309260) <1 HPF Lab Interpretation (test code = 60255-8) Abnormal [facility]"
--- NOTE | 2024-08-06 19:47 | RAD REPORT ---
EXAM: Chest Single View HISTORY: 74 years Male Cough;Dyspnea COMPARISON: 06/18/2022 FINDINGS: LUNGS/PLEURA: Increased prominence of the central portal vasculature. Blunted costophrenic angles. CARDIAC/MEDIASTINUM: Mild cardiomegaly UPPER ABDOMEN: No significant abnormality. BONES: No acute abnormality. LINES/TUBES/OTHER: N/A IMPRESSION: Low lung volumes but with likely pulmonary vascular congestion and/or mild pulmonary edema..
--- NOTE | 2024-08-06 19:49 | RAD REPORT ---
EXAMINATION: US LOWER EXTREMITY VENOUS DOPPLER BILATERAL CLINICAL INDICATION: Male, 74 years old.Pain;Swelling TECHNIQUE: Complete bilateral duplex sonography of the lower extremity veins was performed. The exami nation included compression for vein patency, color Doppler imaging and flow augmentation in response to distal compression of the distal external iliac, common femoral, femoral, popliteal, mynor bernadette, tibial and great saphenous veins. [id number]. COMPARISON: No prior exams FINDINGS: Duplex sonography imaging demonstrates all deep examined to be fully compressible with spontaneous, p hasic and augmented flow bilaterally. Left-sided popliteal fossa cyst measuring 3.8 x 0.9 x 0.6 cm. IMPRESSION: No evidence of deep venous thrombosis seen in either lower extremity. Left-sided Meadows's cyst.
[2024-08-06 19:54] LABS: Absolute Basophils 0.1 K/uL (0-0.5); Absolute Eosinophils 0.5 K/uL (0-0.5); Absolute Lymphocytes (CBC) 1.6 K/uL (0.7-4.9); Absolute Neutrophil 7.5 K/uL (1.8-8.0); Basophils % 0.7 % (0-1.3); Eosinophils % 4.8 % (0-4.4); Hematocrit 26.2 % (39.6-49.0); Lymphocytes % 15.2 % (15.3-44.8); MCH 28.7 pg (27.0-35.0); MCHC 34.3 g/dL (32.0-36.0); MCV 83.8 fL (80-100); MPV 6.8 fL (7.6-11.3); Neutrophils % 70.3 % (41.7-73.7); Platelets 255 thou/uL (152-406); RBC Red Blood Cell Count 3.13 M/uL (4.33-5.43); Red Cell Distribution Width 17.6 % (12.1-15.2)
[2024-08-06 20:00] LABS: PT Prothrombin Time 14.3 SECONDS (10-13.0); Protime INR 1.27
[2024-08-06 20:14] LABS: ALT/SGPT 16 U/L (16-61); Albumin 3.4 g/dL (3.4-5.0); Albumin/Globulin Ratio 0.7 (1.1-1.8); Alkaline Phosphatase 116 U/L (45-117); Anion Gap 9.3 mEq/L (5.0-15.0); BUN Blood Urea Nitrogen 34 mg/dL (7-18); Bicarbonate 25 mEq/L (21-32); Bilirubin Direct 0.2 mg/dL (0-0.2); Bilirubin Indirect, Calculated 0.5 mg/dL (0.2-0.8); Bilirubin Total 0.7 mg/dL (0.2-1.0); Globulin 4.9 g/dL (2.3-3.5); Glomerular Filtration Rate 37 ml/min (=/>90); Glucose Level 145 mg/dL (74-106); Lipase 28 U/L (13-75); Magnesium 2.2 mg/dL (1.6-2.4); NT PRO-BNP 4939 pg/mL (<125); Potassium 5.3 mEq/L (3.5-5.1); Protein, Total 8.3 g/dL (6.4-8.2); Sodium Level 135 mEq/L (136-145); Troponin High Sensitivity 15.1 pg/mL (<58.9)
[2024-08-06] MEDS ORDERED: FUROSEMIDE 40 MG/4 ML VIAL ONE (20:14)
[2024-08-06 20:18] LABS: AST/SGOT < 10 U/L (15-37)
--- NOTE | 2024-08-06 20:22 | EDPHYS ---
Physician Documentation [facility] Name: Giovanni Lopez Age: 74 yrs Sex: Male : 1950 Arrival Date: 08/06/2024 Time: 18:15 Bed 8 Private MD: ED Physician Nav Rangel HPI: 08/06 20:06 This 74 yrs old Male presents to ER via Wheelchair with complaints of Leg brigida Swelling, Breathing Difficulty. 20:06 The patient has shortness of breath at rest, with light activity. Onset: The brigida symptoms/episode began/occurred 3 day(s) ago. Duration: The symptoms are continuous, and are steadily getting worse. The patient's shortness of breath is aggravated by coughing, supine position, talking, walking. Associated signs and symptoms: Pertinent positives: non-productive cough. Severity of symptoms: At their worst the symptoms were moderate in the emergency department the symptoms are worse. The patient has experienced similar episodes in the past, multiple times. Historical: - Allergies: 18:35 HYDROCODONE; db 18:35 Sulfa (Sulfonamide Antibiotics); db - PMHx: 18:35 diabetes mellitus; Hypercholesterolemia; Gout; CHF; Hypertensive disorder; db - Immunization history:: Adult Immunizations unknown. - Infectious Disease History:: Denies. ROS: 20:11 Constitutional: Negative for fever, chills, and weight loss, Eyes: Negative for injury, brigida pain, redness, and discharge, ENT: Negative for injury, pain, and discharge, Neck: Negative for injury, pain, and swelling, Cardiovascular: Negative for chest pain, palpitations, and edema, Abdomen/GI: Negative for abdominal pain, nausea, vomiting, diarrhea, and constipation, Back: Negative for injury and pain, : Negative for injury, bleeding, discharge, and swelling, Skin: Negative for injury, rash, and discoloration, Neuro: Negative for headache, weakness, numbness, tingling, and seizure, Psych: Negative for depression, anxiety, suicide ideation, homicidal ideation, and hallucinations, Allergy/Immunology: Negative for hives, rash, and allergies, Endocrine: Negative for neck swelling, polydipsia, polyuria, polyphagia, and marked weight changes, 20:11 Respiratory: Positive for cough, orthopnea, shortness of breath, 20:11 MS/extremity: Positive for pain, swelling, of the right leg and left leg, Exam: 20:11 Constitutional: This is a well developed, well nourished patient who is awake, alert, brigida and in no acute distress. Head/Face: Normocephalic, atraumatic. Eyes: Pupils equal round and reactive to light, extra-ocular motions intact. Lids and lashes normal. Conjunctiva and sclera are non-icteric and not injected. Cornea within normal limits. Periorbital areas with no swelling, redness, or edema. ENT: Nares patent. No nasal discharge, no septal abnormalities noted. Tympanic membranes are normal and external auditory canals are clear. Oropharynx with no redness, swelling, or masses, exudates, or evidence of obstruction, uvula midline. Mucous membranes moist. Neck: Trachea midline, no thyromegaly or masses palpated, and no cervical lymphadenopathy. Supple, full range of motion without nuchal rigidity, or vertebral point tenderness. No Meningismus. Chest/axilla: Normal chest wall appearance and motion. Nontender with no deformity. No lesions are appreciated. Cardiovascular: Regular rate and rhythm with a normal S1 and S2. No gallops, murmurs, or rubs. Normal PMI, no JVD. No pulse deficits. Abdomen/GI: Soft, non-tender, with normal bowel sounds. No distension or tympany. No guarding or rebound. No evidence of tenderness throughout. Back: No spinal tenderness. No costovertebral tenderness. Full range of motion. Male : Normal genitalia with no discharge or lesions. Skin: Warm, dry with normal turgor. Normal color with no rashes, no lesions, and no evidence of cellulitis. Neuro: Awake and alert, GCS 15, oriented to person, place, time, and situation. Cranial nerves II-XII grossly intact. Motor strength 5/5 in all extremities. Sensory grossly intact. Cerebellar exam normal. Normal gait. Psych: Awake, alert, with orientation to person, place and time. Behavior, mood, and affect are within normal limits. 20:11 ECG was reviewed by the Attending Physician. 20:11 Respiratory: mild respiratory distress is noted, Breath sounds: rales, that are mild, are located in both bases, are heard in the left lower lobe, right lower lobe, left posterior lower lobe, right posterior middle lobe and right posterior lower lobe, Vital Signs: 18:33 BP 121 / 54; Pulse 88; Resp 8; Temp 98.4; Pulse Ox 98% ; Weight 109.77 kg; Height 5 ft. db 11 in. ; 19:45 BP 115 / 56; Pulse 95; Resp 24; Pulse Ox 95% on R/A; jb4 21:00 BP 121 / 56; Pulse 95; Resp 20; Pulse Ox 94% on 3 lpm NC; jb4 22:00 BP 124 / 63; Pulse 93; Resp 20; Pulse Ox 99% on 3 lpm NC; jb4 23:00 BP 103 / 62; Pulse 89; Resp 20; Pulse Ox 99% on 3 lpm NC; jb4 08/07 00:16 BP 96 / 77; Pulse 88; Resp 18; Pulse Ox 97% on 3 lpm NC; kd3 08/06 18:33 Body Mass Index 33.75 (109.77 kg, 180.34 cm) db MDM: 08/06 18:21 Medical Screening Exam initiated [facility] 18:42 Medical Screening Exam initiated [facility] 08/06 18:25 Order name: Basic Metabolic Panel; Complete Time: 20:23 [facility] 08/06 18:25 Order name: CBC with Diff; Complete Time: 20:02 [facility] 08/06 18:25 Order name: LFT's; Complete Time: 20:23 [facility] 08/06 18:25 Order name: Magnesium; Complete Time: 20:23 [facility] 08/06 18:25 Order name: NT PRO-BNP; Complete Time: 20:23 [facility] 08/06 18:25 Order name: PT-INR; Complete Time: 20:02 [facility] 08/06 18:25 Order name: Troponin HS; Complete Time: 20:23 [facility] 08/06 18:25 Order name: Lipase; Complete Time: 20:23 [facility] 08/06 18:25 Order name: UA Rfx Frederic Cult if indicated [facility] 08/06 23:20 Order name: CBC with Automated Diff EDMS 08/06 23:20 Order name: CBC with Automated Diff EDMS 08/06 23:20 Order name: Comprehensive Metabolic Panel EDMS 08/06 23:20 Order name: Comprehensive Metabolic Panel EDMS 08/06 18:25 Order name: XRAY Chest (1 view); Complete Time: 20:02 [facility] 08/06 18:25 Order name: US Extremity Venous W Compression Matthew; Complete Time: 20:02 [facility] 08/06 20:24 Order name: US Rp Exam Complete [facility] 08/06 23:19 Order name: Echo with Doppler [facility] 08/06 23:19 Order name: Physical Therapy Consult [facility] 08/06 18:25 Order name: Cardiac monitoring; Complete Time: 20:05 [facility] 08/06 18:25 Order name: EKG - Nurse/Tech; Complete Time: 18:46 [facility] 08/06 18:25 Order name: IV Saline Lock; Complete Time: 20:05 [facility] 08/06 18:25 Order name: Labs collected and sent; Complete Time: 20:05 [facility] 08/06 18:25 Order name: O2 Per Protocol; Complete Time: 20:05 [facility] 08/06 18:25 Order name: O2 Sat Monitoring; Complete Time: 20: [facility] 08/06 20:43 Order name: Misc. Order: Apply Pure wic; Complete Time: 21:25 sp4 EC:11 Rate is 87 beats/min. Rhythm is regular. QRS [place] is Normal. IA interval is normal. QRS brigida interval is normal. QT interval is normal. No Q waves. T waves are Normal. No ST changes noted. Clinical impression: NSR w/ Non-specific ST/T Changes and No evidence of ischemia. Interpreted by me. Reviewed by me. Administered Medications: 20:20 Drug: Furosemide IVP 40 mg IVP once; give over 2 minutes Route: IVP; Site: right jb4 antecubital; 21:00 Follow up: Response: No adverse reaction; Marked relief of symptoms jb4 22:01 Drug: Famotidine IVP 20 mg IVP once; dilute with 10 mL 0.9% NaCl; give over 2 minutes jb4 Route: IVP; Site: right antecubital; 22:30 Follow up: Response: No adverse reaction jb4 22:01 Drug: Lovenox Sub-Q 40 mg Sub-Q once Route: Sub-Q; Site: right lower abdomen; jb4 22:30 Follow up: Response: No adverse reaction jb4 Disposition Summary: 08/06/24 20:21 Hospitalization Ordered Notes: Hospitalization Status: Inpatient Admission brigida Provider: Jamie Sands cha Location: Telemetry/MedSurg (Inpatient) brigida Condition: Fair brigida Problem: new brigida Symptoms: have improved brigida Bed/Room Type: Standard [facility] Room Assignment: 415(05/07/25 23:33) kl Diagnosis - Edema, unspecified brigida - Chronic combined systolic (congestive) and diastolic (congestive) heart failure brigida - Dyspnea brigida - Anemia, unspecified brigida - Chronic kidney disease, unspecified brigida - Hyperkalemia brigida Forms: - Medication Reconciliation Form brigida - SBAR form brigida - Leadership Thank You Letter brigida Signatures: Dispatcher [employer] EDMS Brandy Dickson RN RN kl Anderson, Corey, MD MD cha Bryson, James, RN RN jb4 Alicia Bustamante RN RN db Nasim Da Silva MD MD sp4 Corrections: (The following items were deleted from the chart) 18:25 18:25 BASIC METABOLIC PANEL+C.LAB.BRZ ordered. EDMS EDMS 18:25 18:25 CBC+H.LAB.BRZ ordered. EDMS EDMS 18:25 18:25 HEPATIC FUNCTION+C.LAB.BRZ ordered. EDMS EDMS 18:25 18:25 MAGNESIUM+C.LAB.BRZ ordered. EDMS EDMS 18:25 18:25 PROBNP+C.LAB.BRZ ordered. EDMS EDMS 18:25 18:25 PROTIME (+INR)+COAG.LAB.BRZ ordered. EDMS EDMS 18:25 18:25 Troponin High Sensitivity+C.LAB.BRZ ordered. EDMS EDMS 18:25 18:25 LIPASE+C.LAB.BRZ ordered. EDMS EDMS 18:25 18:25 UA Rfx Frederic Cult if indicated+U.LAB.BRZ ordered. EDMS EDMS 18:25 18:25 Chest Single View+RAD.RAD.BRZ ordered. EDMS EDMS 18:26 18:26 Extrem Venous W Compression Matthew+US.RAD.BRZ ordered. EDMS EDMS 23:33 20:21 brigida kl
--- NOTE | 2024-08-06 20:22 | ER ---
Nurse's Notes [facility] Name: Giovanni Lopez Age: 74 yrs Sex: Male : 1950 Arrival Date: 08/06/2024 Time: 18:15 Bed 8 Private MD: Diagnosis: Edema, unspecified;Chronic combined systolic (congestive) and diastolic (congestive) heart failure;Dyspnea;Anemia, unspecified;Chronic kidney disease, unspecified;Hyperkalemia Presentation: 08/06 18:33 Chief complaint: Patient states: DIFFICULTY BREATHING BILATERAL LEG SWELLING. COUGH AND db CONGESTION X 2 WEEKS. STATES TAKING "WATER PILL" IS NOT HELPING WITH SWELLING. HAS BEEN USING INHALER. SLEEPING IN RECLINER LAST 2 DAYS DUE TO DIFFICULTY BREATHING. Coronavirus screen: Client denies travel out of the [place] in the last 14 days. At this time, the client does not indicate any symptoms associated with coronavirus-19. Ebola Screen: Patient negative for fever greater than or equal to 101.5 degrees Fahrenheit, and additional compatible Ebola Virus Disease symptoms Patient denies exposure to infectious person. Patient denies travel to an Ebola-affected area in the 21 days before illness onset. No symptoms or risks identified at this time. Initial Sepsis Screen: Does the patient meet any 2 criteria? No. Patient's initial sepsis screen is negative. Does the patient have a suspected source of infection? No. Patient's initial sepsis screen is negative. Risk Assessment: Do you want to hurt yourself or someone else? Patient reports no desire to harm self or others. Onset of symptoms was August 06, 2024. 18:33 Method Of Arrival: Wheelchair db 18:33 Acuity: SOBEIDA 2 db Triage Assessment: 18:35 General: Appears in no apparent distress. comfortable, Behavior is calm, cooperative. db Pain: Complains of pain in right leg and left leg. Neuro: Level of Consciousness is awake, alert, obeys commands, Oriented to person, place, time, situation. Respiratory: Reports shortness of breath Airway is patent Respiratory effort is even, unlabored, Respiratory pattern is regular, symmetrical, Onset: The symptoms/episode began/occurred gradually, the patient has mild shortness of breath. Historical: - Allergies: 18:35 HYDROCODONE; db 18:35 Sulfa (Sulfonamide Antibiotics); db - PMHx: 18:35 diabetes mellitus; Hypercholesterolemia; Gout; CHF; Hypertensive disorder; db - Immunization history:: Adult Immunizations unknown. - Infectious Disease History:: Denies. Screenin/08 00:17 [facility] ED Fall Risk Assessment (Adult) History of falling in the last 3 months, kd3 including since admission No falls in past 3 months (0 pts) Confusion or Disorientation No (0 pts) Intoxicated or Sedated No (0 pts) Impaired Gait No (0 pts) Mobility Assist Device Used Yes (1 pt) Altered Elimination No (0 pt) Score/Fall Risk Level 0 - 2 = Low Risk Maintained a safe environment. Abuse screen: Denies threats or abuse. Denies injuries from another. Nutritional screening: No deficits noted. Tuberculosis screening: No symptoms or risk factors identified. Assessment: 08/06 19:00 General: Appears in no apparent distress. uncomfortable, Behavior is calm, cooperative, jb4 appropriate for age. Pain: Denies pain. Neuro: Level of Consciousness is awake, alert, obeys commands, Oriented to person, place, time, situation. Cardiovascular: Patient's skin is warm and dry. Respiratory: Airway is patent Respiratory effort is even, labored, Respiratory pattern is symmetrical, tachypnea. Derm: Skin is intact, Skin is pink, warm \\T\\ dry. Musculoskeletal: Circulation, motion, and sensation intact. Range of motion: intact in all extremities, Swelling present in right leg and left leg. 20:00 Reassessment: Patient appears in no apparent distress at this time. No changes from jb4 previously documented assessment. Patient and/or family updated on plan of care and expected duration. Pain level reassessed. 21:00 Reassessment: Patient appears in no apparent distress at this time. Patient and/or jb4 family updated on plan of care and expected duration. Pain level reassessed. Patient is alert, oriented x 3, equal unlabored respirations, skin warm/dry/pink. 22:00 Reassessment: Patient appears in no apparent distress at this time. Patient and/or jb4 family updated on plan of care and expected duration. Pain level reassessed. Patient is alert, oriented x 3, equal unlabored respirations, skin warm/dry/pink. 23:00 Reassessment: Patient appears in no apparent distress at this time. Patient and/or jb4 family updated on plan of care and expected duration. Pain level reassessed. Patient is alert, oriented x 3, equal unlabored respirations, skin warm/dry/pink. 08/07 00:17 Neuro: Level of Consciousness is awake, alert, obeys commands, Oriented to person, kd3 place, time, situation. Cardiovascular: Rhythm is regular. Respiratory: Airway is patent Trachea midline Respiratory effort is even, unlabored, Respiratory pattern is regular, symmetrical, Breath sounds are diminished bilaterally. Vital Signs: 08/06 18:33 BP 121 / 54; Pulse 88; Resp 8; Temp 98.4; Pulse Ox 98% ; Weight 109.77 kg; Height 5 ft. db 11 in. ; 19:45 BP 115 / 56; Pulse 95; Resp 24; Pulse Ox 95% on R/A; jb4 21:00 BP 121 / 56; Pulse 95; Resp 20; Pulse Ox 94% on 3 lpm NC; jb4 22:00 BP 124 / 63; Pulse 93; Resp 20; Pulse Ox 99% on 3 lpm NC; jb4 23:00 BP 103 / 62; Pulse 89; Resp 20; Pulse Ox 99% on 3 lpm NC; jb4 08/07 00:16 BP 96 / 77; Pulse 88; Resp 18; Pulse Ox 97% on 3 lpm NC; kd3 08/06 18:33 Body Mass Index 33.75 (109.77 kg, 180.34 cm) db ED Course: 08/06 18:17 Patient arrived in ED. al6 18:21 Nav Rangel MD is Attending Physician. brigida 18:35 Triage completed. db 18:36 Arm band placed on. db 19:34 US Extremity Venous W Compression Matthew In Process Unspecified. EDMS 19:36 Rekha Dupree, JOLANTA is Primary Nurse. kd3 19:40 XRAY Chest (1 view) In Process Unspecified. EDMS 20:20 Jamie Sands MD is Hospitalizing Provider. brigida 21:21 US Rp Exam Complete In Process Unspecified. EDMS 21:[address] vk 08/07 00:17 Patient has correct armband on for positive identification. Provided Education on: male kd3 [place] . 00:17 No provider procedures requiring assistance completed. Patient admitted, IV remains in kd3 place. Administered Medications: 08/06 20:20 Drug: Furosemide IVP 40 mg IVP once; give over 2 minutes Route: IVP; Site: right jb4 antecubital; 21:00 Follow up: Response: No adverse reaction; Marked relief of symptoms jb4 22:01 Drug: Famotidine IVP 20 mg IVP once; dilute with 10 mL 0.9% NaCl; give over 2 minutes jb4 Route: IVP; Site: right antecubital; 22:30 Follow up: Response: No adverse reaction jb4 22:01 Drug: Lovenox Sub-Q 40 mg Sub-Q once Route: Sub-Q; Site: right lower abdomen; jb4 22:30 Follow up: Response: No adverse reaction jb4 Medication: 08/07 00:18 VIS not applicable for this client. kd3 Outcome: 08/06 20:21 Decision to Hospitalize by Provider. [facility] 08/07 00:18 Condition: stable kd3 01:19 Admitted to Tele accompanied by nurse, via stretcher, room 415, with oxygen, jb4 01:19 Condition: stable 01:19 Discharge instructions given to patient, Instructed on the need for admit, Demonstrated understanding of instructions, 01:19 Patient left the ED. jb4 Signatures: Dispatcher [employer] EDMS Nav Rangel MD MD cha Bryson, James RN RN jb4 Rekha Dupree RN RN kd3 Alicia Bustamante, JOLANTA RN Geneva Brown Alissa al6 Corrections: (The following items were deleted from the chart) 08/06 18:36 18:33 Chief complaint: Patient states: DIFFICULTY BREATHING BILATERAL LEG SWELLING. db COUGH AND CONGESTION X 2 WEEKS. STATES TAKING "WATER PILL" IS NOT HELPING WITH SWELLING. HAS BEEN USING INHALER db
--- NOTE | 2024-08-06 21:33 | RAD REPORT ---
EXAMINATION: US RETROPERITONEUM CLINICAL INDICATION: PAIN TECHNIQUE: Real-time ultrasonography of the abdomen was performed. COMPARISON: 02/02/2024 FINDINGS: RIGHT KIDNEY: Right renal length measurement: 9.4 cm. Echogenicity is normal. No calculus or solid m ass. No hydronephrosis. . Perinephric stranding. LEFT KIDNEY: Left renal length measurement: 10.4 cm. Echogenicity is normal. No calculus or solid m ass. No hydronephrosis. . Perinephric stranding ADDITIONAL FINDINGS: N/A IMPRESSION: No acute findings identified. No evidence of hydronephrosis.
[2024-08-06] MEDS ORDERED: ENOXAPARIN 40 MG/0.4 ML SQ ONE (21:51)
[2024-08-06] MEDS ORDERED: FAMOTIDINE 20 MG/2 ML VIAL IV ONE (21:51)
[2024-08-06] MEDS ORDERED: ALBUTEROL 2.5 MG/3 ML NEB SOL NEB PRN (23:11)
[2024-08-06] MEDS ORDERED: FUROSEMIDE 40 MG/4 ML VIAL IV ONE (23:18)
--- NOTE | 2024-08-06 23:21 | P.HP ---
Certification for Inpatient Patient admitted to: Inpatient With expected LOS: >2 Midnights Patient will require the following post-hospital care: None Practitioner: I am a practitioner with admitting privileges, knowledge of patient current condition, hospital course, and medical plan of care. Services: Services provided to patient in accordance with Admission requirements found in Title 42 Section 412.3 of the Code of Federal Regulations Patient History Date of Service: 08/06/24 Reason for admission: New onset CHF with exacerbation. Allergies hydrocodone Allergy (Verified 07/10/24 09:25) Itching/Hives/Rash Sulfa (Sulfonamide Antibiotics) Allergy (Verified 07/10/24 09:25) Itching/Hives/Rash sulfamethoxazole [From Bactrim] Adverse Reaction (Verified 08/07/24 01:36) Anaphylaxis trimethoprim [From Bactrim] Adverse Reaction (Verified 08/07/24 01:36) Anaphylaxis Home medications list reviewed: No Home Medications: Allopurinol 100 mg PO DAILY 07/10/24 Amlodipine [Norvasc*] 10 mg PO DAILY 07/10/24 Atorvastatin Calcium 10 mg PO BEDTIME 07/10/24 Cholecalciferol (Vitamin D3) [Vitamin D3] 2,000 units PO DAILY 07/10/24 Ferrous Gluconate 324 mg PO DAILY 07/10/24 Furosemide 20 mg PO DAILY 07/10/24 Glipizide [Glipizide ER] 10 mg PO BEDTIME 07/10/24 Lisinopril [Zestril] 10 mg PO DAILY 07/10/24 Pioglitazone HCl 30 mg PO DAILY 07/10/24 - Past Medical/Surgical History Diabetic: Yes -: Type 2 diabetes mellitus -: Hypertension. -: Bladder infection. -: Bilateral rotator cuff repair. -: Right leg surgery with plates implant. - Family History Mother -: Heart disease, Hypertension Father -: Heart disease, Hypertension Notes: Dementia - Social History Smoking Status: Former smoker Alcohol use: No CD- Drugs: No Caffeine use: Yes Place of Residence: Home Review of Systems 10-point ROS is otherwise unremarkable Respiratory: Shortness of Breath, SOB with Excertion Cardiovascular: Orthopnea Musculoskeletal: Back Pain, Leg Pain Neurological: Weakness Physical Examination - Physical Exam General: Alert, Oriented x3, Cooperative HEENT: Atraumatic, Normocephalic, PERRLA Neck: Supple, 2+ carotid pulse no bruit, Without JVD or thyroid abnormality Respiratory: Diminished Cardiovascular: Normal pulses, Regular rate/rhythm, Normal S1 S2, No gallops, No rubs, No murmurs, Edema Capillary refill: <2 Seconds Gastrointestinal: Normal bowel sounds, Soft and benign, No ascites, No tenderness, No masses, No rebound, No guarding Musculoskeletal: No clubbing, No erythema, No tenderness, No warmth Integumentary: No rashes, Tenderness/swelling Neurological: Normal tone, Sensation intact, Cranial nerves 3-12 intact Lymphatics: No axilla or inguinal lymphadenopathy Rectal: Normal - Studies Laboratory Data (last 24 hrs) 08/06/24 08/06/24 08/06/24 19:44 19:44 19:44 WBC 10.60 Hgb 9.0 L Hct 26.2 L Plt Count 255 PT 14.3 H INR 1.27 Sodium 135 L Potassium 5.3 H BUN 34 H Creatinine 1.89 H Glucose 145 H Magnesium 2.2 Total Bilirubin 0.7 AST < 10 L ALT 16 Alkaline Phosphatase 116 Lipase 28 Male Exam - Male Exam Inguinal exam: No hernias Testicular exam: Non-tender Assessment and Plan - Plan Patient is a 74-year-old male with past medical history of hypertension, type 2 diabetes mellitus, remote bladder infection, who presents to the ER today complaining of worsening shortness of breath, and bilateral lower extremities edema, with no associated chest pain. Patient states for the past 2 weeks he has been having shortness of breath with no expiratory or inspiratory wheezing, states he has been having progressive bilateral lower extremity edema as well. Patient states he visited [place], and he was put on albuterol inhaler which he states has not helped. Patient states he reported to ER today because of the increased shortness of breath, orthopnea, and increased bilateral lower extremity edema. Patient denies of any prior history of CHF. Consulted [facility] pharmacy informatics manager. (1) New onset CHF with exacerbation. -Gave an additional dose of 40 mg IV x 1. Patient received 40 mg of IV Lasix in the ER prior to my admission. -Oral Lasix 40 mg IV twice daily. -Order echo in the morning. -Albuterol 2.5 mg nebulizer as needed every 6 hours. -Consult [facility] cardiology to see this patient. Steel Turner will need to be notified in AM. (2) chronic type 2 diabetes mellitus. -Moderate sliding scale coverage. -Will resume patient diabetic medication when reconciled. Patient does not remember any of his medication at this time. (3) explained entire treatment plan to the patient, significant other present at bedside, solicit questions answered and voiced understanding. Discharge Plan: Home Plan to discharge in: 72 Hours - Advance Directives Does patient have a Living Will: No Does patient have a Durable POA for Healthcare: No - Code Status/Comfort Care Code Status: Do Not Attempt Resuscitat Critical Care: No
[2024-08-07] MEDS: FUROSEMIDE 40 MG/4 ML VIAL IV ONE (02:54)
[2024-08-07 03:18] LABS: Specific Gravity 1.008 (1.005-1.030); Urine Bilirubin NEGATIVE (Negative); Urine Blood Negative (Negative); Urine Clarity Clear (Clear); Urine Color Colorless (Yellow); Urine Glucose NEGATIVE (Negative); Urine Ketones NEGATIVE (Negative); Urine Microscopic Reflex YN NO UMIC; Urine Nitrite NEGATIVE (Negative); Urine Protein NEGATIVE (Negative); Urine Urobilinogen Normal (Normal); Urine pH 6.5 (5.0-7.0)
[2024-08-07 04:36] LABS: Absolute Basophils 0.1 K/uL (0-0.5); Absolute Eosinophils 0.5 K/uL (0-0.5); Absolute Lymphocytes (CBC) 1.4 K/uL (0.7-4.9); Absolute Monocytes 0.8 K/uL (0.1-1.3); Absolute Neutrophil 6.4 K/uL (1.8-8.0); Basophils % 0.8 % (0-1.3); Eosinophils % 5.1 % (0-4.4); Hematocrit 27.2 % (39.6-49.0); Hemoglobin 9.2 g/dL (13.6-17.9); Lymphocytes % 14.9 % (15.3-44.8); MCHC 33.7 g/dL (32.0-36.0); MCV 83.2 fL (80-100); Monocytes % 9.3 % (3.3-12.3); Neutrophils % 69.9 % (41.7-73.7); Nucleated Red Blood Cells % 0.1 % (0-0); Platelets 267 thou/uL (152-406); RBC Red Blood Cell Count 3.27 M/uL (4.33-5.43); Red Cell Distribution Width 17.3 % (12.1-15.2)
[2024-08-07 04:52] LABS: Albumin 3.4 g/dL (3.4-5.0); Albumin/Globulin Ratio 0.7 (1.1-1.8); Bilirubin Total 0.7 mg/dL (0.2-1.0); Globulin 4.6 g/dL (2.3-3.5)
[2024-08-07] MEDS: INSULIN REGULAR (HUMAN) 100 UNIT/ML SQ SCH (07:30)
[2024-08-07] MEDS: ENOXAPARIN 40 MG/0.4 ML SQ SCH (10:28)
[2024-08-07] MEDS: FUROSEMIDE 40 MG/4 ML VIAL IV SCH (10:28)
[2024-08-07] MEDS ORDERED: ALBUTEROL 2.5 MG/3 ML NEB SOL NEB PRN (11:03)
[2024-08-07] MEDS ORDERED: D10W 125 ML IV PRN (11:05)
[2024-08-07] MEDS ORDERED: GLUCAGON 1 MG/VIAL IM PRN (11:05)
--- NOTE | 2024-08-07 11:27 | P.CNS ---
Date of Consult: 08/07/24 Chief Complaint: New onset CHF with exacerbation. History of Present Illness: Patient with PMH of HTN, presented with worsening SOB, BAUTISTA and bilateral lower extremities edema for the last few days, denies chest pain, no palpitations, no syncope. Allergies hydrocodone Allergy (Verified 07/10/24 09:25) Itching/Hives/Rash Sulfa (Sulfonamide Antibiotics) Allergy (Verified 07/10/24 09:25) Itching/Hives/Rash sulfamethoxazole [From Bactrim] Adverse Reaction (Verified 08/07/24 01:36) Anaphylaxis trimethoprim [From Bactrim] Adverse Reaction (Verified 08/07/24 01:36) Anaphylaxis Home medications list reviewed: Yes Home Medications: Allopurinol 100 mg PO DAILY 07/10/24 Amlodipine [Norvasc*] 10 mg PO DAILY 07/10/24 Atorvastatin Calcium 10 mg PO BEDTIME 07/10/24 Cholecalciferol (Vitamin D3) [Vitamin D3] 2,000 units PO DAILY 07/10/24 Ferrous Gluconate 324 mg PO DAILY 07/10/24 Furosemide 20 mg PO DAILY 07/10/24 Glipizide [Glipizide ER] 10 mg PO BEDTIME 07/10/24 Lisinopril [Zestril] 10 mg PO DAILY 07/10/24 Pioglitazone HCl 30 mg PO DAILY 07/10/24 - Past Medical/Surgical History Diabetic: Yes -: Type 2 diabetes mellitus -: Hypertension. -: Bladder infection. -: hypertensive disorder -: hypercholesterolemia -: Bilateral rotator cuff repair. -: Right leg surgery with plates implant. - Family History Mother Medical History: Heart disease, Hypertension Father Medical History: Heart disease, Hypertension Notes: Dementia - Social History Alcohol use: No CD- Drugs: No Caffeine use: Yes Place of Residence: Home Review of Systems 10-point ROS is otherwise unremarkable Physical Examination Temp Pulse Resp BP Pulse Ox 98.1 F 90 18 107/49 L 95 08/07/24 08:00 08/07/24 10:28 08/07/24 08:00 08/07/24 10:28 08/07/24 08:00 General: Alert, In no apparent distress HEENT: Atraumatic, PERRLA, Mucous membr. moist/pink, EOMI, Sclerae nonicteric Neck: Supple, 2+ carotid pulse no bruit, No LAD, Without JVD or thyroid abnormality Respiratory: Clear to auscultation bilaterally, Normal air movement Cardiovascular: Regular rate/rhythm, Normal S1 S2, Edema Gastrointestinal: Normal bowel sounds, No tenderness Musculoskeletal: No tenderness Integumentary: No rashes Neurological: Normal gait, Normal speech, Normal tone, Normal affect Lymphatics: No axilla or inguinal lymphadenopathy Laboratory Data (last 24 hrs) 08/06/24 08/06/24 08/06/24 19:44 19:44 19:44 WBC 10.60 Hgb 9.0 L Hct 26.2 L Plt Count 255 PT 14.3 H INR 1.27 Sodium 135 L Potassium 5.3 H BUN 34 H Creatinine 1.89 H Glucose 145 H Magnesium 2.2 Total Bilirubin 0.7 AST < 10 L ALT 16 Alkaline Phosphatase 116 Lipase 28 - Problems (1) Acute on chronic diastolic heart failure Current Visit: Yes Status: Acute Plan: continue lasix 40 mg IV BID Add Toprol XL 25 mg po daily consider adding Entresto 24 mg po BID once patient is diursed and kidney function is established baseline consider adding Jardiance 25 mg daily at discharge. Echo shows normal EF, DD. (2) HTN (hypertension) Current Visit: Yes Status: Acute Plan: adjust medications as above. (3) HLD (hyperlipidemia) Current Visit: Yes Status: Acute Plan: continue lipitor 20 mg daily (4) PVC (premature ventricular contraction) Current Visit: Yes Status: Acute Plan: add Toprol XL 25 mg daily Echo shows normal EF, normal caputo motion outpatient follow up with cardiology for outpatient stress test
--- NOTE | 2024-08-07 11:40 | EKG ---
Test Date: 2024-08-06 Test Time: 18:44:53 Apprentice Cosmetologist: ABDI MEASUREMENT RESULTS: Intervals: Rate: 87 FL: 122 QRSD: 94 QT: 378 QTc: 454 [place]: P: 59 FL: 122 QRS: -36 T: 85 INTERPRETIVE STATEMENTS: Normal sinus rhythm Left axis deviation Anteroseptal infarct, age undetermined Abnormal ECG Compared to ECG 02/02/2024 23:38:10 Atrial premature complex(es) no longer present Myocardial infarct finding still present Electronically Signed On 08-07-24 11:38:43 CDT by David Ramirez
--- NOTE | 2024-08-07 11:58 | ECHO ---
HEIGHT: 5 ft 11 in WEIGHT: 242 lb 0 oz DATE OF STUDY: 08/07/[address]: Emil Cevallos NP 2-DIMENSIONAL: YES M.MODE: YES DOPPLER: YES COLOR FLOW: YES TDS: YES PORTABLE: YES DEFINITY: BUBBLE STUDY: DIAGNOSIS: NEW ONSET CONGESTIVE HEART FAILURE CARDIAC HISTORY: CATHERIZATION: NO SURGERY: NO PROSTHETIC VALVE: NO PACEMAKER: NO MEASUREMENTS (cm) DIASTOLIC (NORMALS) SYSTOLIC (NORMALS) IVSd 1.1 (0.6-1.2) LA Diam 4.1 (1.9-4.0) LVEF 50-55% LVIDd 4.1 (3.5-5.7) LVIDs 3.3 (2.0-3.5) %FS 20% LVPWd 1.3 (0.6-1.2) Ao Diam 3.1 (2.0-3.7) 2 DIMENSIONAL ASSESSMENT: RIGHT ATRIUM: NORMAL LEFT ATRIUM: NORMAL RIGHT VENTRICLE: NORMAL LEFT VENTRICLE: NORMAL TRICUSPID VALVE: MILD TRICUSPID REGURGITATION MITRAL VALVE: SEVERE MITRAL ANNULAR CALCIFICATION PULMONIC VALVE: NORMAL AORTIC VALVE: NOT WELL VISUALIZED PERICARDIAL EFFUSION: NONE AORTIC ROOT: NORMAL LEFT VENTRICULAR WALL MOTION: NORMAL DOPPLER/COLOR FLOW: DIASTOLIC DYSFUNCTION COMMENTS: 1. NORMAL LEFT VENTRICULAR SYSTOLIC FUNCTION, EJECTION FRACTION 50-55%, NORMAL WALL MOTION 2. DIASTOLIC DYSFUNCTION 3. MODERATE PULMONARY HYPERTENSION (RIGHT VENTRICULAR SYSTOLIC PRESSURE 45-50 mmHg) TECHNOLOGIST: KAREY KHAN
--- NOTE | 2024-08-07 12:01 | P.PN ---
Subjective Date of Service: 08/07/24 Chief Complaint: New onset CHF with exacerbation. Subjective: No chest pain. shortness of breath improving. No nausea or vomiting. No abdominal pain. No obvious bleeding. Looks comfortable in the bed. Objective: General appearance: Alert and comfortable CVS: Normal S1 and S2 Lungs: Clear to auscultation bilaterally Abdomen: Soft, bowel sounds present, no tenderness Extremities: mild lower extremity edema, better compared with yesterday as per patient Physical Examination - Vital Signs Temperature: 98.1 F Blood Pressure: 107/49 Pulse: 90 Respirations: 18 Pulse Ox (%): 95 - Studies Laboratory Data (last 24 hrs) 08/06/24 08/06/24 08/06/24 19:44 19:44 19:44 WBC 10.60 Hgb 9.0 L Hct 26.2 L Plt Count 255 PT 14.3 H INR 1.27 Sodium 135 L Potassium 5.3 H BUN 34 H Creatinine 1.89 H Glucose 145 H Magnesium 2.2 Total Bilirubin 0.7 AST < 10 L ALT 16 Alkaline Phosphatase 116 Lipase 28 Assessment And Plan - Plan (1) acute diastolic CHF - Continue IV Lasix, cardiology following, normal echo as per cardiology - To beta-anabela and Entresto as per cardiology recommendations - Chest x-ray showed volume overload, ultrasound negative for DVT, renal ultrasound negative (2) type 2 diabetes mellitus. - sliding scale coverage for now. 3. Chronic anemia: Probably secondary to chronic kidney disease, monitor closely. 4. CKD 3B: Monitor closely. 5. Hyperkalemia: Better, monitor closely 6. Hypertension: Continue current medications Plan discussed with the patient, answered all questions. Discharge plan depending on clinical progress.
[2024-08-07] MEDS: METOPROLOL XL 25 MG TAB PO SCH (12:52)
[2024-08-07] MEDS: SACUBITRIL/VALSARTAN 24/26 MG TAB PO SCH (21:13)
[2024-08-08 04:40] LABS: Absolute Basophils 0.1 K/uL (0-0.5); Absolute Eosinophils 0.4 K/uL (0-0.5); Absolute Lymphocytes (CBC) 1.7 K/uL (0.7-4.9); Absolute Monocytes 1.2 K/uL (0.1-1.3); Absolute Neutrophil 7.2 K/uL (1.8-8.0); Basophils % 0.8 % (0-1.3); Eosinophils % 3.9 % (0-4.4); Hematocrit 28.4 % (39.6-49.0); Hemoglobin 9.5 g/dL (13.6-17.9); Lymphocytes % 16.3 % (15.3-44.8); MCH 27.6 pg (27.0-35.0); MCHC 33.2 g/dL (32.0-36.0); MCV 83.1 fL (80-100); MPV 7.2 fL (7.6-11.3); Monocytes % 10.9 % (3.3-12.3); Neutrophils % 68.1 % (41.7-73.7); Platelets 272 thou/uL (152-406); RBC Red Blood Cell Count 3.42 M/uL (4.33-5.43); Red Cell Distribution Width 17.7 % (12.1-15.2)
[2024-08-08] MEDS: ACETAMINOPHEN 325 MG TABLET PO PRN (15:03)
--- NOTE | 2024-08-08 15:46 | P.PN ---
Subjective Date of Service: 08/08/24 Chief Complaint: New onset CHF with exacerbation. Subjective: No chest pain. shortness of breath much better. No nausea or vomiting. No abdominal pain. No obvious bleeding. Looks comfortable in the bed. Objective: General appearance: Alert and comfortable CVS: Normal S1 and S2 Lungs: Clear to auscultation bilaterally Abdomen: Soft, bowel sounds present, no tenderness Extremities: lower extremity edema almost resolved Physical Examination - Vital Signs Temperature: 97.6 F Blood Pressure: 112/52 Pulse: 70 Respirations: 14 Pulse Ox (%): 95 Assessment And Plan - Plan (1) acute diastolic CHF - on IV Lasix, hold for now due to increasing creatinine, DC home tomorrow on oral Lasix if able to wean off oxygen - cardiology following, echo showed 50 to 55% EF, diastolic dysfunction, moderate pulmonary hypertension -Continue beta-anabela and added Entresto as per cardiology recommendations - Chest x-ray showed volume overload, ultrasound negative for DVT, renal ultrasound negative - Start Jardiance at discharge as per cardiology recommendations (2) type 2 diabetes mellitus. - sliding scale coverage for now. 3. Chronic anemia: Probably secondary to chronic kidney disease, monitor closely. 4. CKD 3B: Monitor closely. 5. Hyperkalemia: Better, monitor closely 6. Hypertension: Continue current medications Plan discussed with the patient, answered all questions. DC home tomorrow on oral diuretics if continues to improve and able to wean off oxygen, discussed with nursing staff to wean off oxygen
[2024-08-08] MEDS: METOPROLOL XL 25 MG TAB PO SCH (21:16)
[2024-08-09 06:33] LABS: Absolute Basophils 0.1 K/uL (0-0.5); Absolute Eosinophils 0.3 K/uL (0-0.5); Absolute Lymphocytes (CBC) 1.7 K/uL (0.7-4.9); Absolute Monocytes 1.1 K/uL (0.1-1.3); Absolute Neutrophil 6.5 K/uL (1.8-8.0); Basophils % 0.7 % (0-1.3); Eosinophils % 2.8 % (0-4.4); Hematocrit 28.9 % (39.6-49.0); Hemoglobin 9.7 g/dL (13.6-17.9); Lymphocytes % 17.3 % (15.3-44.8); MCH 27.8 pg (27.0-35.0); MCHC 33.7 g/dL (32.0-36.0); MCV 82.5 fL (80-100); MPV 6.8 fL (7.6-11.3); Monocytes % 11.7 % (3.3-12.3); Neutrophils % 67.5 % (41.7-73.7); Nucleated Red Blood Cells % 0.1 % (0-0); Platelets 298 thou/uL (152-406); Red Cell Distribution Width 17.4 % (12.1-15.2)
[2024-08-09 06:57] LABS: Anion Gap 13.2 mEq/L (5.0-15.0); Potassium 4.2 mEq/L (3.5-5.1)
[2024-08-09] MEDS: FLU (Fluarix Triv) TS24-25(6MOS UP)/PF 45 MCG/0.5 ML Syringe IM ONE (09:00)
--- NOTE | 2024-08-09 09:48 | P.PN ---
Date of Service: 08/09/24 Subjective: Feeling better overall. Doesn't feel anything is worse Swelling improving, Breathing easier. reports history of lower extremity edema, fluid overload in the past. Has been on lasix in the past no events overnight Physical Exam: GEN: Alert, oriented, NAD CV: Regular rate and rhythm, trace edema Pulm: mild labored respirations on room air, diminished at bases b/l ABD: soft, nontender, nondistended Neuro: Normal speech, normal affect Problem List: Acute CHF exacerbation, new onset ANA on CKD3 Hyperkalemia, improved Hyponatremia Hypertension Chronic anemia Acute CHF exacerbation, new onset on admission, presents with worsening SOB for ~2 weeks associated with lower extremity edema, orthopnea. Denies chest pain. CXR: Low lung volume with likely pulm vascular congestion and/or pulm edema Venous u/s: no DVT bilaterally. Left-sided benavides's cyst. Echo with 50-55% EF, diastolic dysfunction, moderate pulm htn, severe mitral annular calcification, mild TR 08/07 - Cardiology consulted Metoprolol 25 mg added per cardio 08/08 - IV lasix dc'd given worsening renal function 08/09 - DC entresto due to renal fxn continue to monitor, improving, no longer with orthopnea, edema improved as well ANA on CKD3 Hyperkalemia, improved Hyponatremia Renal u/s: No acute findings. No hydro. Continue to monitor renal function, electrolytes 08/08 - IV lasix dc'd 08/09 - Creatinine uptrending DC IV Entresto Hypertension Iron deficiency anemia confirm home medications, restart as appropriate Daily labs. VTE: Lovenox Code: DNI Dispo: Home, ~1-2 days Pending renal function improves Time Spent Managing Pts Care (In Minutes): 55
[2024-08-09] MEDS: ATORVASTATIN 10 MG TAB PO SCH (20:11)
[2024-08-10 07:24] LABS: Absolute Basophils 0.1 K/uL (0-0.5); Absolute Eosinophils 0.3 K/uL (0-0.5); Absolute Lymphocytes (CBC) 1.5 K/uL (0.7-4.9); Absolute Monocytes 1.2 K/uL (0.1-1.3); Absolute Neutrophil 7.4 K/uL (1.8-8.0); Basophils % 0.5 % (0-1.3); Eosinophils % 2.5 % (0-4.4); Hematocrit 27.8 % (39.6-49.0); Hemoglobin 9.3 g/dL (13.6-17.9); Lymphocytes % 14.7 % (15.3-44.8); MCH 27.3 pg (27.0-35.0); MCHC 33.4 g/dL (32.0-36.0); MCV 81.6 fL (80-100); MPV 7.1 fL (7.6-11.3); Monocytes % 11.7 % (3.3-12.3); Neutrophils % 70.6 % (41.7-73.7); Nucleated Red Blood Cells % 0.1 % (0-0); Platelets 291 thou/uL (152-406); RBC Red Blood Cell Count 3.41 M/uL (4.33-5.43); Red Cell Distribution Width 17.1 % (12.1-15.2)
[2024-08-10 07:36] LABS: Anion Gap 10.1 mEq/L (5.0-15.0); Magnesium 2.4 mg/dL (1.6-2.4); Potassium 4.1 mEq/L (3.5-5.1)
[2024-08-10] MEDS: allopurinoL 100 MG TAB PO SCH (08:35)
[2024-08-10] MEDS: HOME MED 1 EA UNK (Ferrous Gluconate [Ferrous Gluconate] 324 MG Tablet) PO SCH (08:35)
--- NOTE | 2024-08-10 10:54 | P.PN ---
Date of Service: 08/10/24 Subjective: feeling better today denies any new / worsening problems Urine is light yellow Physical Exam: GEN: Alert, oriented, NAD CV: Regular rate and rhythm, trace edema Pulm: Non labored respirations on room air, diminished at bases b/l; slight winded after conversing for well ABD: soft, nontender, nondistended Neuro: Normal speech, normal affect Problem List: Acute CHF exacerbation, new onset ANA on CKD3 Hyperkalemia, improved Hyponatremia Hypertension Chronic anemia Acute CHF exacerbation, new onset on admission, presents with worsening SOB for ~2 weeks associated with lower extremity edema, orthopnea. Denies chest pain. CXR: Low lung volume with likely pulm vascular congestion and/or pulm edema Venous u/s: no DVT bilaterally. Left-sided benavides's cyst. Echo with 50-55% EF, diastolic dysfunction, moderate pulm htn, severe mitral annular calcification, mild TR 08/07 - Cardiology consulted Metoprolol 25 mg added per cardio 08/08 - IV lasix dc'd given worsening renal function 08/09 - DC entresto due to renal fxn continue to monitor, improving, no longer with orthopnea, edema improved as well 08/10 - Stable. Renal function slightly improved. Denies any new problems ANA on CKD3 Hyperkalemia, improved Hyponatremia Renal u/s: No acute findings. No hydro. Continue to monitor renal function, electrolytes 08/08 - IV lasix dc'd 08/09 - Creatinine uptrending DC IV Entresto 08/10 - Renal function slightly improved. Sodium stable. suspect hypovolemic at this time. possible from entresto/overdiuresis hold nephrotoxic medications Nephrology consulted further studies ordered per nephro Continue to monitor Hypertension Iron deficiency anemia confirm home medications, restart as appropriate Daily labs. VTE: Lovenox Code: DNI Dispo: Home, ~1 day Pending renal function improves Time Spent Managing Pts Care (In Minutes): 55
--- NOTE | 2024-08-10 11:38 | RAD REPORT ---
EXAMINATION: ONE VIEW CHEST XR CLINICAL INDICATION: COPD TECHNIQUE: Frontal chest projection is submitted. Examination is limited by patient positioning and t echnique. COMPARISON: 08/06/2024 FINDINGS: Small bilateral pleural effusions are seen with haziness in both lung bases likely representing atele ctasis. Lungs are otherwise clear. The heart is mildly enlarged in size. No displaced fractures identified.
--- NOTE | 2024-08-10 11:50 | CON ---
Date of Consultation: 08/10/2024 Additional Consulting Physician: Dr. Sands. Reason For Consultation: Elevated BUN and creatinine, fluid management. History Of Present Illness: This is a pleasant 74-year-old gentleman with significant past medical h istory include diabetes since 1984 complicated with neuropathy, no retinopathy, hypertension, hyperli pidemia, chronic kidney disease according to the patient has baseline creatinine, hyperten bryce, pulmonary hypertension with congestive heart failure, no CAD. The patient was in his regular s rm of health. The patient came to the hospital because of worsening orthopnea and leg swelling, fo und to be as congestive heart failure new onset. For that reason, the patient was started on diuresi s. Upon arrival to the hospital, creatinine was 1.8, gradually creatinine trend up to 2.3. For that reason, we have been consulted. Reviewing the record for the patient back in July 2024, creatinine 1.7 and GFR of 41. As I mentioned above, the patient known to have chronic kidney disease. For gonzalo t reason, metformin has been discontinued. Known to have chronic leg edema, given Lasix p.r.n., and advised not to use it unless if the swelling significant as can have kidney damage secondary to the L asix. The patient denied taking any nonsteroidal. No recent exposure to IV contrast. Past Medical History: Includes: 1. Hypertension. 2. Hyperlipidemia. 3. Diabetes since 1984 complicated with neuropathy, no retinopathy. 4. Congestive heart failure, recent diagnosis, ejection fraction of 55% with diastolic dysfunction, m oderate pulmonary hypertension. 5. Pulmonary hypertension. Family History: Positive for hypertension. Allergies: HYDROCODONE AND SULFA. Home Medications: Include allopurinol, amlodipine, cholecalciferol, Lasix 20 mg p.r.n., glipizide, l isinopril, pioglitazone. Social History: Ex-smoker. Denied alcohol. Denied drugs abuse. Review of Systems: Head and Neck: No red eye. No ear pain. GI: No nausea. No vomiting. : No polyuria. No dysuria. No hematuria. IMPROVEMENT AUDITOR: Not applicable. Respiratory: Has shortness of breath. Cardiovascular: Has leg swelling. Has orthopnea. Endocrine: No polydipsia. Skin: No rash. Neuro: Has neuropathy. Musculoskeletal: No joint pain. Physical Examination: Vital Signs: When I saw the patient, blood pressure 111/53, pulse of 82, afebrile. Chest: Clear to auscultation. Heart: S1, S2. Regular. Abdomen: Soft, nontender. Extremities: No edema. Neuro: Alert and oriented x3. No focality. Laboratory Data: Back in July 2024, creatinine 1.7, GFR of 41. Upon admission, creatinine 1.8, GFR of 40. Today lab data, sodium 131, potassium 4.1, bicarb 26, BUN 68, creatinine 2.3, calcium 9.2, m agnesium 2.4. Upon admission, sodium 138, potassium 5.3, bicarb 25, BUN 34, creatinine 1.8, GFR of 3 7. BNP 4900. Chest x-ray, cardiomegaly, mild congestion. Urinalysis, negative for infection, negat masood for protein. Renal ultrasound was done showing no hydronephrosis, normal size kidney 9.4/10.4. Current Medications: The patient is on include albuterol, Lovenox, Tylenol, allopurinol, the patient received Lasix, Entresto. Assessment And Plan: 1. Acute kidney injury secondary to over diuresis. I agree with holding the Entresto, holding the La six right now, the patient is on room air. I do not see the need to give IV fluid. We will monitor the patient in the next 24 hours and we will follow up. We will send for workup including PTH and se rum protein electrophoresis with presence of the anemia and we will follow up. 2. Hypertension with the presence of acute kidney injury. I agree with holding lisinopril. Hold the Entresto. Hold the Lasix for the time being and currently blood pressure on the lower side. We shy l hold all other blood pressure medication. Okay if needed to initiate beta-anabela. 3. Edema, anasarca, multifactorial secondary to cardiorenal superimposed with pulmonary hypertension, superimposed with calcium channel anabela to rule out other causes. We will send for TSH and PC rat io and we will follow up. 4. Gout. Continue allopurinol. 5. Hyperkalemia secondary to renal failure, resolved. 6. Hyponatremia, dilutional, resolved. Currently, depletional component. We will hold the diuresis and we will follow up. 7. Diabetes, as by primary. The patient is going to be a good candidate to be on Jardiance given the congestive heart failure and the renal disease. Thank you Dr. Sands for allowing us to participate in the care of your patient. Time spent examining the patient [id number], reviewing data, lab and radiology, placing order, discussing the case with the patient, discussing the case with the call center team leader including hospitalist and nursing staff more t schwartz 75 minutes. LIZA Voice ID: [id number] Report ID: [id number]
[2024-08-10 12:01] LABS: Specific Gravity 1.011 (1.005-1.030); Sqamous Epithelial <5 /HPF (None Seen); Urine Bacteria 20-50 /HPF (<20); Urine Bilirubin NEGATIVE (Negative); Urine Blood Negative (Negative); Urine Clarity Extremely Turbid (Clear); Urine Color Light-Yellow (Yellow); Urine Culture Reflex Order NOT NEEDED; Urine Glucose NEGATIVE (Negative); Urine Ketones NEGATIVE (Negative); Urine Microscopic Reflex YN ORDER UMIC; Urine Nitrite 1+ (Negative); Urine Protein 1+ (Negative); Urine RBC <5 /HPF (None Seen); Urine Urobilinogen Normal (Normal); Urine WBC <5 /HPF (<5); Urine pH 5.5 (5.0-7.0)
[2024-08-11 01:41] VITALS: BMI 33.5
[2024-08-11 04:31] LABS: Absolute Eosinophils 0.3 K/uL (0-0.5); Absolute Lymphocytes (CBC) 1.7 K/uL (0.7-4.9); Absolute Monocytes 0.9 K/uL (0.1-1.3); Absolute Neutrophil 5.9 K/uL (1.8-8.0); Basophils % 0.4 % (0-1.3); Eosinophils % 2.9 % (0-4.4); Hematocrit 28.4 % (39.6-49.0); Hemoglobin 9.5 g/dL (13.6-17.9); Lymphocytes % 19.1 % (15.3-44.8); MCH 27.6 pg (27.0-35.0); MCHC 33.3 g/dL (32.0-36.0); MCV 82.8 fL (80-100); MPV 7.3 fL (7.6-11.3); Monocytes % 10.3 % (3.3-12.3); Neutrophils % 67.3 % (41.7-73.7); Percent Reticulocyte Count 1.43 % (0.4-2.05); Platelets 272 thou/uL (152-406); RBC Red Blood Cell Count 3.43 M/uL (4.33-5.43); Red Cell Distribution Width 17.7 % (12.1-15.2)
[2024-08-11 05:10] LABS: Albumin 3.1 g/dL (3.4-5.0); Anion Gap 9.4 mEq/L (5.0-15.0); Ferritin 323.4 ng/mL (26-388); Magnesium 2.5 mg/dL (1.6-2.4); Phosphorus 4.1 mg/dL (2.5-4.9); Potassium 4.4 mEq/L (3.5-5.1); Thyroid Stimulating Hormone 2.75 uIU/mL (0.358-3.740); Uric Acid 7.3 mg/dL (3.5-7.2)
[2024-08-11 08:16] VITALS: BP 120/59; TEMP 98.6
[2024-08-11 09:39] VITALS: O2SAT 95
--- NOTE | 2024-08-11 09:53 | P.DS ---
Admission Date: 08/06/24 Discharge Date: 08/11/24 Disposition: ROUTINE DISCHARGE Discharge Condition: GOOD Reason for Admission: New onset CHF with exacerbation. Consultations: Cardiology - Dr. Ramirez Nephrology - Dr. Dolan Brief History of Present Illness: 74yo M, PMH: hypertension, type 2 diabetes mellitus, remote bladder infection, Patient presents to the ER today complaining of worsening shortness of breath, and bilateral lower extremities edema, with no associated chest pain. Patient states for the past 2 weeks he has been having shortness of breath with no expiratory or inspiratory wheezing, states he has been having progressive bilateral lower extremity edema as well. Patient states he visited [place], and he was put on albuterol inhaler which he states has not helped. Patient states he reported to ER today because of the increased shortness of breath, orthopnea, and increased bilateral lower extremity edema. Patient denies of any prior history of CHF. Consulted [facility] telemetry technician. Hospital Course: Problem List: Acute on chronic CHF exacerbation ANA on CKD3 Hyperkalemia, improved Hyponatremia Hypertension Iron deficiency anemia Physician discharge instructions: Patient presented with worsening dyspnea, lower extremity edema secondary to acute CHF exacerbation. CXR with low lung volume with likely pulmonary vascular congestion and/or pulmonary edema. Venous ultrasound was negative for DVT bilaterally, noted left- sided benavides's cyst. Patient was started on IV lasix and had improvement of his symptoms. Lower extremity edema, breathing improved with diureisis. Cardiology was consulted and recommended starting patient on lose dose metoprolol daily. Dr. Ramirez also recommended to follow up with cardiology as outpatient in the near future for outpatient stress test. He responded well to IV lasix, and lead to a mild overdiuresis with mild worsening of renal function. IV lasix was held and he had gradual improvement. Nephrology was consulted as well. His lisinopril was also held due to the bump in his renal function. Recommend to continue holding this medication, until follow up with PCP / Nephrology. Continue lasix as previously - as needed for fluid management. Check weight around the same time each day. If you notice over a 2-3 lb weight gain within 24 hours, advised to take lasix that day. Keep daily log of weight readings to take to follow up appointments for further adjustments of medications. Check blood pressure around the same time each day. Keep daily log of blood p ressure readings to take to follow up appointments for further management. Repeat blood work in ~1 week to ensure improvement/stability of renal function. Follow up with nephrology in 1-2 weeks Creatinine on discharge: 2.20. (peaked at 2.42, and was 1.89 on admission). Previous lab work available to use had range 1.8-2.0 TTE (08/06/24): EF: 50-55%, diastolic dysfunction, moderate pulmonary hypertension (RV systolic pressure: 45-50mmHg), severe mitral annular calcification, mild tricuspid regurgitation. Medications: Metoprolol 12.5 mg daily Lasix as needed for CHF/fluid retention (as previously prescribed) Stop lisinopril - for now, until you follow up with your PCP/Nephrology Given history of diabetes, CKD, and heart failure, recommend consideration for Jardiance. To discuss further with PCP / Cardiology. continue other home medications not listed as previously prescribed Follow up: PCP 3-5 days Cardiology 2-4 weeks Nephrology 1-2 weeks Please call to schedule / confirm appointments Physical Exam: GEN: Alert, oriented, NAD CV: Regular rate and rhythm, trace edema Pulm: Non labored respirations on room air, clear bilaterally ABD: soft, nontender, nondistended Neuro: Normal speech, normal affect Vital Signs/Physical Exam: Temp Pulse Resp BP Pulse Ox 98.6 F 77 18 120/59 L 95 08/11/24 08:00 08/11/24 08:00 08/11/24 08:00 08/11/24 08:00 08/11/24 08:00 Laboratory Data at Discharge: WBC 8.70 thou/uL (4.3-10.9) 08/11/24 03:56 Hgb 9.5 g/dL (13.6-17.9) L 08/11/24 03:56 Hct 28.4 % (39.6-49.0) L 08/11/24 03:56 Plt Count 272 thou/uL (152-406) 08/11/24 03:56 PT 14.3 SECONDS (10-13.0) H 08/06/24 19:44 INR 1.27 08/06/24 19:44 Sodium 131 mEq/L (136-145) L 08/11/24 03:56 Potassium 4.4 mEq/L (3.5-5.1) 08/11/24 03:56 BUN 67 mg/dL (7-18) H 08/11/24 03:56 Creatinine 2.20 mg/dL (0.70-1.30) H 08/11/24 03:56 Glucose 114 mg/dL (74-106) H 08/11/24 03:56 Uric Acid 7.3 mg/dL (3.5-7.2) H 08/11/24 03:56 Phosphorus 4.1 mg/dL (2.5-4.9) 08/11/24 03:56 Magnesium 2.5 mg/dL (1.6-2.4) H 08/11/24 03:56 Total Bilirubin 0.7 mg/dL (0.2-1.0) 08/07/24 04:00 AST 12 U/L (15-37) L 08/07/24 04:00 ALT 16 U/L (16-61) 08/07/24 04:00 Alkaline Phosphatase 109 U/L (45-117) 08/07/24 04:00 Lipase 28 U/L (13-75) 08/06/24 19:44 Home Medications: Allopurinol 100 mg PO DAILY 07/10/24 Amlodipine [Norvasc*] 10 mg PO DAILY 07/10/24 Atorvastatin Calcium 10 mg PO BEDTIME 07/10/24 Cholecalciferol (Vitamin D3) [Vitamin D3] 2,000 units PO DAILY 07/10/24 Ferrous Gluconate 324 mg PO DAILY 07/10/24 Furosemide 20 mg PO DAILY 07/10/24 Pioglitazone HCl 30 mg PO DAILY 07/10/24 Metoprolol Succinate [Toprol Xl*] 12.5 mg PO BEDTIME 60 Days #30 tab 08/11/24 New Medications: Metoprolol Succinate [Toprol Xl*] 12.5 mg PO BEDTIME 60 Days #30 tab Physician Discharge Instructions: Physician discharge instructions: Patient presented with worsening dyspnea, lower extremity edema secondary to acute CHF exacerbation. CXR with low lung volume with likely pulmonary vascular congestion and/or pulmonary edema. Venous ultrasound was negative for DVT bilaterally, noted left- sided benavides's cyst. Patient was started on IV lasix and had improvement of his symptoms. Lower extremity edema, breathing improved with diureisis. Cardiology was consulted and recommended starting patient on lose dose metoprolol daily. Dr. Ramirez also recommended to follow up with cardiology as outpatient in the near future for outpatient stress test. He responded well to IV lasix, and lead to a mild overdiuresis with mild worsening of renal function. IV lasix was held and he had gradual improvement. Nephrology was consulted as well. His lisinopril was also held due to the bump in his renal function. Recommend to continue holding this medication, until follow up with PCP / Nephrology. Continue lasix as previously - as needed for fluid management. Check weight around the same time each day. If you notice over a 2-3 lb weight gain within 24 hours, advised to take lasix that day. Keep daily log of weight readings to take to follow up appointments for further adjustments of medications. Check blood pressure around the same time each day. Keep daily log of blood pressure readings to take to follow up appointments for further management. Repeat blood work in ~1 week to ensure improvement/stability of renal function. Follow up with nephrology in 1-2 weeks Creatinine on discharge: 2.20. (peaked at 2.42, and was 1.89 on admission). Previous lab work available to use had range 1.8-2.0 TTE (08/06/24): EF: 50-55%, diastolic dysfunction, moderate pulmonary hypertension (RV systolic pressure: 45-50mmHg), severe mitral annular calcification, mild tricuspid regurgitation. Medications: Metoprolol 12.5 mg daily Lasix as needed for CHF/fluid retention (as previously prescribed) Stop lisinopril - for now, until you follow up with your PCP/Nephrology Given history of diabetes, CKD, and heart failure, recommend consideration for Jardiance. To discuss further with PCP / Cardiology. continue other home medications not listed as previously prescribed Follow up: PCP 3-5 days Cardiology 2-4 weeks Nephrology 1-2 weeks Please call to schedule / confirm appointments [facility]: [facility] [Primary Care Provider] - Time spent managing pt's care (in minutes): 45
--- NOTE | 2024-08-11 11:27 | P.PN ---
Subjective Date of Service: 08/11/24 Chief Complaint: New onset CHF with exacerbation. Subjective: No new changes, No C/O voiced, Tolerating diet, Ambulating, Improving Review of Systems 10-point ROS is otherwise unremarkable Physical Examination - Vital Signs Temperature: 98.6 F Blood Pressure: 120/59 Pulse: 77 Respirations: 18 Pulse Ox (%): 95 - Physical Exam General: Alert, In no apparent distress HEENT: Atraumatic, PERRLA, EOMI Neck: Supple, JVD not distended Respiratory: Clear to auscultation bilaterally, Normal air movement Cardiovascular: Regular rate/rhythm, Normal S1 S2 Gastrointestinal: Normal bowel sounds, No tenderness Musculoskeletal: No tenderness Integumentary: No rashes Neurological: Normal speech, Normal tone, Normal affect Lymphatics: No axilla or inguinal lymphadenopathy - Studies Medications List Reviewed: Yes Assessment And Plan - Current Problems (Diagnosis) (1) Acute on chronic diastolic heart failure Current Visit: Yes Status: Acute Plan: continue Toprol XL 25 mg po daily Echo shows normal EF, DD. (2) HTN (hypertension) Current Visit: Yes Status: Acute Plan: adjust medications as above. (3) HLD (hyperlipidemia) Current Visit: Yes Status: Acute Plan: continue lipitor 20 mg daily (4) PVC (premature ventricular contraction) Current Visit: Yes Status: Acute Plan: Toprol XL 25 mg daily Echo shows normal EF, normal caputo motion outpatient follow up with cardiology for outpatient stress test
[2024-08-11 23:52] LABS: Rheumatoid Factor NEG (NEG)
--- NOTE | 2024-08-12 02:11 | PN ---
Date of Progress Note: 08/11/2024 Chief Complaint: Elevated BUN and creatinine levels, acute kidney injury on chronic kidney disease, and cardiorenal syndrome. Subjective: Patient is a 74-year-old man with past medical history significant for diabetes mellitus , diagnosed in 1984; peripheral neuropathy; hypertension; hyperlipidemia; chronic kidney disease stag e 3; hypertension; pulmonary hypertension; and congestive heart failure. Patient [facility], and Nephrology was consulted for elevated BUN and creatinine levels. He has diabetes mellitus wit h renal manifestation. Metformin was stopped during this admission because of risk of lactic acidosi s. Review of Systems: Denies chest pain or palpitation. Physical Examination: Lungs: Clear to auscultation bilaterally. Heart: S1 and S2. Abdomen: Soft, benign. Extremities: Minimal edema. Lab Work: Creatinine 2.3, BUN 68, bicarbonate 26, potassium 4.1, and sodium 131. Impression And Plan: 1. Acute kidney injury, secondary to volume depletion and diuretic on hold. Entresto was stopped ernestina nning to re-evaluate renal function. Continue IV fluid hydration. Continue low-sodium diet for card iorenal syndrome. 2. Hypertension with presence of acute kidney injury. Lisinopril was stopped. Entresto is currently on hold, and diuretic will be resumed when renal function has stabilized at baseline. 3. Edema, anasarca, multifactorial, secondary to cardiorenal syndrome, complicated by pulmonary hyper tension, superimposed with calcium channel anabela. TSH was sent out to rule out hypothyroidism. 4. Gout. Continue allopurinol. 5. Hyperkalemia, secondary to renal failure, resolved with lisinopril on hold. 6. Hyponatremia, due to cardiorenal syndrome. Patient will continue low-sodium diet. 7. Diabetes mellitus. Monitor blood glucose and hold metformin. EB/MODL Voice ID: [id number] Report ID: [id number]
[2024-08-12] MEDS ORDERED: FERROUS GLUCONATE 324 MG TAB PO SCH (13:00)
[2024-08-13 16:43] LABS: Abnormal Protein Band 1 REPORT; Albumin, (SPE) 3.5 g/dL (3.8-4.8); Alpha-1-Globulins 0.4 g/dL (0.2-0.3); Alpha-2-Globulins 0.9 g/dL (0.5-0.9); Beta 1 Globulin 0.4 g/dL (0.4-0.6); Gamma Globulins 1.6 g/dL (0.8-1.7); INTERPRETATION REPORT; Total Protein 7.2 g/dL (6.1-8.1)
[2024-08-13 21:23] LABS: P-ANCA Anti-Myeloperoxidase Ab <1.0 AI (<1.0)
[2024-08-14 16:34] LABS: 1,25 Dihydroxy Vitamin D3 <8 pg/mL; Vitamin D 1,25-Dihydroxy Total <8 pg/mL (18-72); Vitamin D,1,25-OH2, D2 <8 pg/mL
[2024-08-15 14:21] LABS: Anti-Nuclear Antibody Screen Negative (Negative)
== END 2024-08-11 12:00 | disposition home or self-care (01) | DRG 291 ==
LOC: ER 18:15 → ERHOLD 23:08 → 4TH 08-07 00:35
PROVIDERS: ADMIT Hospitalist; ATTEND Hospitalist
DX: I13.0 Hypertensive heart and chronic kidney disease with heart failure and stage 1 through stage 4 chronic kidney disease, or unspecified chronic kidney disease (principal); I50.33 Acute on chronic diastolic (congestive) heart failure; E87.1 Hypo-osmolality and hyponatremia; N17.9 Acute kidney failure, unspecified; N18.32 Chronic kidney disease, stage 3b; E11.22 Type 2 diabetes mellitus with diabetic chronic kidney disease; D63.1 Anemia in chronic kidney disease; D50.9 Iron deficiency anemia, unspecified; M10.9 Gout, unspecified; E87.5 Hyperkalemia; E78.00 Pure hypercholesterolemia, unspecified; I27.20 Pulmonary hypertension, unspecified; I49.3 Ventricular premature depolarization; Z88.2 Allergy status to sulfonamides; Z88.5 Allergy status to narcotic agent; Z79.84 Long term (current) use of oral hypoglycemic drugs; Z79.899 Other long term (current) drug therapy; Z87.891 Personal history of nicotine dependence
CPT/HCPCS: 36415; 71045; 76770; 80048; 80053; 80069; 80076; 81001; 81003; 82550; 82607; 82652; 82728; 82947; 83540; 83690; 83735; 83880; 83970; 84165; 84443; 84484; 84550; 85025; 85044; 85610; 86021; 86038; 86430; 93005; 93306; 93970; 96372; 96374; 96375; 97116; 97161; 97530; 99285; J1650; J1815; J1938

== ENCOUNTER 2024-12-26 17:05 | Emergency (ER) | payer MEDICARE ==
--- OUTSIDE RECORDS SUMMARY | 2024-12-26 17:09 | XMS REPORT | Continuity of Care Document ---
Author Name Unknown Address [address] [facility] [address] [place] [address] [facility] [place] Address [address] [facility] [address] [place] [address] Care Team Providers Care Chamber Walker Name Role Phone [facility] Primary Car e Physician Unavailable Tara De La Rosa Attending Clinician [phone] Kristen Aaron Attending Clinician Nicol Aponte Attending Clinician [phone] JORDAN KAUFFMAN Attending Clinician Unavailabl e Doctor Unassigned, [place] Attending Clinician U Vikram Hinton MD Attending Clinician [phone] Nella DE JESUS Attending Clinician Unavailable Nella Thurston Attending Clinician [phone] Tiff Arenas Attending Clinician [phone] Nella DE JESUS Admitting Clinician Unavailable Payers Payer Name Policy Type Policy Number Effective Date Expirati on Date Source MEDICARE PART A \\T\\ B [id number] 2016 00:00:00 DARS DISABILITY DETERMINATION [facility] [id number] 2017 00:00:00 [facility] MEDICARE ADVANTAGE PLAN [id number] Problems Condition Name Condition Details Condition Category Status Onset Date Resolution Date Last Treatment Date Treating Clinician Comments Source Mild hyperchole sterolemia Mild hyperchole sterolemia Disease Active 2015-04 00:00: 00 [facility] Gout Gout Disease Active 04-28 00:00: 00 [facility] Hypertensi on Hypertensi on Disease Active 04-28 00:00: 00 [facility] Diabetes Diabetes Disease Active 04-28 00:00: 00 [facility] Allergies, Adverse Reactions, Alerts Allergy Name Allergy Type Status Severity Reaction(s) Onset Date Inactive Date Treating Clinician Comments Source Sulfa (Sulfona mide Antibiot ics) Propensi ty to adverse reaction s Active Unknown - See comments 04-28 00:00: 00 [facility] Codeine Propensi ty to adverse reaction s Active Unknown - See comments 04-28 00:00: 00 [facility] Sulfa (Sulfona mide Antibiot ics) Propensi ty to adverse reaction s Active Unknown - See comments 04-28 00:00: 00 [facility] CODEINE DRUG INGREDI Active Unknown-Cmnt 04-28 00:00: 00 [facility] SULFA (SULFONA MIDE ANTIBIOT ICS) Drug Class Active Unknown-Cmnt 04-28 00:00: 00 [facility] Hydrocod one Drug Allergy Active [facility] Social History Social Habit Start Date Stop Date Quantity Comments Source Gender identity [facility] Exposure to SARS-CoV-2 (event) Not sure [facility] History of tobacco use Snuff User [facility] History SDOH Alcohol Frequency [facility] History SDOH Alcohol Std Drinks [facility] History SDOH Alcohol Binge [facility] Alcohol intake 2021-10-11 00:00:00 2021-10-11 00:00:00 0 /d [facility] History of Social function 2021-10-11 00:00:00 2021-10-11 00:00:00 [facility] Tobacco Comment 2015-04-28 00:00:00 2015-04-28 00:00:00 1 can lasts 3-4 days; 30 years [facility] Alcohol Comment 2015-04-28 00:00:00 2015-04-28 00:00:00 rare [facility] Cigarettes smoked current (pack per day) - Reported 2015-04-28 00:00:00 2015-04-28 00:00:00 [facility] Cigarette pack-years 2015-04-28 00:00:00 2015-04-28 00:00:00 [facility] Tobacco use and exposure 2015-04-28 00:00:00 2015-04-28 00:00:00 User of smokeless tobacco [facility] Sex Assigned At 1950 00:00:00 1950 00:00:00 [facility] Smoking Status Start Date Stop Date Source Ex-smoker 2015-04-28 00:00:00 2015-04-28 00:00:00 U [facility] Medications Ordered Medication Name Filled Medication Name Start Date Stop Date Current Medication? Ordering Clinician Indication Dosage Frequency Signature (SIG) Comments Components Source acetaminoph en (TYLENOL) tablet 1,000 mg 05-23 02:15: 00 05-23 02:08 :00 No 1000mg 1,000 mg, Oral, ONCE, 1 dose, On 05/22/21 at 2015, [facility] HYDROcodone -acetaminop hen (NORCO) 10-325 mg tablet 1 tablet 2019-04 05:15: 00 02-08 04:13 :00 No 1{tbl} 1 tablet, Oral, ONCE NOW, 1 dose, 02/08/20 at 2315, [facility] ondansetron (ZOFRAN (PF)) injection 4 mg 2019-04 03:45: 00 02-08 02:52 :00 No 4mg 4 mg, Slow IV Push, ONCE, 1 dose, 02/08/20 at 2145, [facility] morpHINE injection 4 mg 2019-04 03:45: 00 02-08 02:52 :00 No 4mg 4 mg, Slow IV Push, ONCE, 1 dose, 02/08/20 at 2145, [facility] traMADoL (ULTRAM) 50 mg tablet 2019-04 00:00: 00 02-15 05:59 :00 No [id number] 100mg Take 2 tablets by mouth every 6 (six) hours as needed for Pain (scale 7-10) for up to 7 days. Indication s: acute pain [facility] LISINOPRIL 40 mg tablet 2016-04 00:00: 00 Yes TAKE 1 TABLET BY MOUTH EVERY MORNING [facility] lisinopril (PRINIVIL,Z ESTRIL) 40 mg tablet 2015-04 00:00: 00 Yes [id number] 40mg Take 1 tablet by mouth every morning. [facility] glipiZIDE XL (GLUCOTROL XL) 5 mg 24 hr tablet 2015-04 00:00: 00 Yes [id number] TAKE 1 TABLET BY MOUTH DAILY WITH BREAKFAST [facility] metFORMIN (GLUCOPHAGE ) 500 mg tablet 2015-04 00:00: 00 Yes [id number] 500mg Take 1 tablet by mouth 2 (two) times daily. [facility] atorvastati n (LIPITOR) 10 mg tablet 2015-04 00:00: 00 Yes [id number] 10mg Take 1 tablet by mouth at bedtime. [facility] furosemide 20 mg tablet furosemide 20 mg tablet Yes [facility] allopurinol 100 mg tablet allopurinol 100 mg tablet Yes [facility] albuterol sulfate hfa 108 (90 base) mcg/act aerosol soln albuterol sulfate hfa 108 (90 base) mcg/act aerosol soln Yes [facility] OZEMPIC (0.25 OR 0.5 MG/DOSE) 2 MG/1.5ML SOLN PEN INJ OZEMPIC (0.25 OR 0.5 MG/DOSE) 2 MG/1.5ML SOLN PEN INJ Yes [facility] JARDIANCE 25 MG TABLET JARDIANCE 25 MG TABLET Yes [facility] atorvastati n calcium 20 mg tablet atorvastati n calcium 20 mg tablet Yes [facility] metoprolol succinate er 25 mg tablet er 24 hr metoprolol succinate er 25 mg tablet er 24 hr Yes [facility] ENTRESTO 24-26 MG TABLET ENTRESTO 24-26 MG TABLET Yes [facility] furosemide 20 mg tablet furosemide 20 mg tablet Yes [facility] allopurinol 100 mg tablet allopurinol 100 mg tablet Yes [facility] JARDIANCE 25 MG TABLET JARDIANCE 25 MG TABLET Yes [facility] atorvastati n calcium 20 mg tablet atorvastati n calcium 20 mg tablet Yes [facility] metoprolol succinate er 25 mg tablet er 24 hr metoprolol succinate er 25 mg tablet er 24 hr Yes [facility] ENTRESTO 24-26 MG TABLET ENTRESTO 24-26 MG TABLET Yes [facility] furosemide 20 mg tablet furosemide 20 mg tablet Yes [facility] allopurinol 100 mg tablet allopurinol 100 mg tablet Yes [facility] albuterol sulfate hfa 108 (90 base) mcg/act aerosol soln albuterol sulfate hfa 108 (90 base) mcg/act aerosol soln Yes [facility] OZEMPIC (0.25 OR 0.5 MG/DOSE) 2 MG/1.5ML SOLN PEN INJ OZEMPIC (0.25 OR 0.5 MG/DOSE) 2 MG/1.5ML SOLN PEN INJ Yes [facility] JARDIANCE 25 MG TABLET JARDIANCE 25 MG TABLET Yes [facility] atorvastati n calcium 20 mg tablet atorvastati n calcium 20 mg tablet Yes [facility] metoprolol succinate er 25 mg tablet er 24 hr metoprolol succinate er 25 mg tablet er 24 hr Yes [facility] ENTRESTO 24-26 MG TABLET ENTRESTO 24-26 MG TABLET Yes [facility] Vital Signs Vital Name Observation Time Observation Value Comments S ource Systolic blood pressure 2021-05-23 02:00:00 157 mm[Hg] [facility] Diastolic blood pressure 2021-05-23 02:00:00 74 mm[Hg] [facility] Heart rate 2021-05-23 02:00:00 87 /min [facility] Respiratory rate 2021-05-23 02:00:00 18 /min [facility] Oxygen saturation in Arterial blood by Pulse oximetry 2021-05-23 02:00:00 98 /min [facility] Body temperature 2021-05-22 23:20:00 36.67 Eveline [facility] Body height 2021-05-22 23:20:00 177.8 cm [facility] Body weight 2021-05-22 23:20:00 108.863 kg [facility] BMI 2021-05-22 23:20:00 34.44 kg/m2 [facility] Systolic blood pressure 2020-02-09 02:56:00 158 mm[Hg] [facility] Diastolic blood pressure 2020-02-09 02:56:00 65 mm[Hg] [facility] Heart rate 2020-02-09 02:56:00 89 /min [facility] Respiratory rate 2020-02-09 02:56:00 18 /min [facility] Oxygen saturation in Arterial blood by Pulse oximetry 2020-02-09 02:56:00 98 /min [facility] Body temperature 2020-02-09 01:19:00 37.11 Eveline [facility] Body height 2020-02-09 01:19:00 177.8 cm [facility] Body weight 2020-02-09 01:19:00 106.595 kg [facility] BMI 2020-02-09 01:19:00 33.72 kg/m2 [facility] Procedures Procedure Date / Time Performed Performing Clinician Source AUTHORIZATION FOR RELEASE OF PHI 2022-09-29 05:01:00 Doctor Unassigned, [place] [facility] DME/SUPPLY JUSTIFICATION 2022-09-14 05:01:00 Doc tor Unassigned, [place] [facility] URINALYSIS 2021-05-23 00:20:00 Nella De Jesus [facility] N-TERMINAL PRO-BNP 2021-05-23 00:16:00 Nella De Jesus [facility] COVID-19 (ID NOW RAPID TESTING) 2021-05-23 00:16:00 Nella De Jesus [facility] MAGNESIUM 2021-05-23 00:16:00 Nella De Jesus [facility] TROPONIN I 2021-05-23 00:16:00 Nella De Jesus [facility] COMP. METABOLIC PANEL (37255) 2021-05-23 00:16:00 Nella De Jesus [facility] CBC WITH DIFF 2021-05-23 00:16:00 Nella De Jesus [facility] XR CHEST 1 VW 2021-05-22 23:55:42 Nella De Jesus [facility] CONSENT/REFUSAL FOR DIAGNOSIS AND TREATMENT 2021-05-22 23:13:29 Doctor Unassigned, [place] [facility] NOTICE OF PRIVACY PRACTICES 2021-05-22 23:13:08 Doctor Unassigned, [place] [facility] CT ABDOMEN PELVIS WO CONTRAST 2020-02-09 03:12:47 Tiff Vance [facility] XR CHEST 1 VW 2020-02-09 02:49:18 Tiff Vance Uni [facility] XR RIBS 3 VW RIGHT 2020-02-09 02:49:18 Wendie Vance [facility] URINALYSIS 2020-02-09 02:02:00 Tiff Vance [facility] CONSENT/REFUSAL FOR DIAGNOSIS AND TREATMENT 2020-02-09 01:13:03 Doctor Unassigned, [place] [facility] NOTICE OF PRIVACY PRACTICES 2020-02-09 01:12:44 Doctor Unassigned, [place] [facility] Encounters Start Date/Time End Date/Time Encounter Type Admission Type Attending [facility] Care Facility Care Department Encounter ID Source 2021-01-29 03:56:53 Emergency [facility] [id number] [facility] 2024-11-03 15:00:00 2024-11-03 16:00:00 SUJATA Visit- Initial Tara De La Rosa [id number] [facility] 2024-11-01 15:18:00 2024-11-01 15:48:00 Care Coordinati on Non Billable Kristen Aaron [id number] CLACXSWSAS 6AW [facility] 2024-10-29 15:00:00 2024-10-29 16:00:00 Initial D2Me Nicol Fadi [id number] [facility] 2023-09-27 00:00:00 2023-09-27 00:00:00 Outpatient R JORDAN KAUFFMAN [facility] [id number] [facility] 2022-09-29 00:00:00 2022-09-29 00:00:00 Orders Only Doctor Unassigned, [place] [facility] [id number] [facility] 2022-09-14 00:00:00 2022-09-14 00:00:00 Orders Only Doctor Unassigned, [place] [facility] [id number] [facility] 2022-09-13 00:00:00 2022-09-13 00:00:00 Telephone Vikram Millan [facility] [id number] [facility] 2021-05-22 17:33:00 2021-05-22 20:14:00 Emergency X Nella DE JESUS [facility] ERT [id number] [facility] 2021-05-22 17:33:00 2021-05-22 20:14:00 Emergency Nella De Jesus [facility] [id number] [facility] 2020-02-08 19:21:00 2020-02-08 22:42:00 Emergency Vance Tiff [facility] [id number] [facility] Results Test Description Test Time Test Comments Results Result Co mments Source [facility] [id number] 01:01:15* Test Item Value Reference Range Interpretation Comme nts NT-proBNP (test code = 4692429435) 403 pg/mL See_Comment H [Automated message] The system which generated this result transmitted reference range: <=125. The reference range was not used to interpret this result as normal/abnormal. EUGENIA (test code = EUGENIA) Biotin has been reported to cause a negative bias, interpret results relative to patient's use of biotin. Lab Interpretation (test code = 12035-8) Abnormal [facility]2022-[facility]-21 00:52:57* Test Item Value Reference Range Interpretation Comme nts MAGNESIUM (test code = 2278026094) 1.8 mg/dL 1.7-2.4 Lab Interpretation (test cod e = 13012-0) Normal [facility] PAN[facility] (84061)2021-05-23 00:52:37* Test Item Value Reference Range Interpretation Comme nts NA (test code = 5949944466) 134 mmol/L 135-145 L K (test code = 0334594262) 5.1 mmol/L 3.5-5.0 H CL (test code = 0090724920) 105 mmol/L 98-108 CO2 TOTAL (test code = 3989451910) 20 mmol/L 23-31 L AGAP (test code = 7597680928) 2-16 BUN (test code = 0733844429) 50 mg/dL 7-23 H GLUCOSE (test code = 6628812598) 301 mg/dL 70-110 H CREATININE (test code = 1927870500) 1.97 mg/dL 0.60-1.25 H TOTAL BILI (test code = 2563601541) 0.5 mg/dL 0.1-1.1 CALCIUM (test code = 6725780566) 9.1 mg/dL 8.6-10.6 T PROTEIN (test code = 9179591111) 8.2 g/dL 6.3-8.2 ALBUMIN (test code = 7727686212) 4.9 g/dL 3.5-5.0 ALK PHOS (test code = 6647872062) 99 U/L 34-122 ALTv (test code = 1742-6) 21 U/L 5-50 AST(SGOT) (test code = 4730500650) 24 U/L 13-40 eGFR (test code = 2331123138) mL/min/1.73m2 EUGENIA (test code = EUGENIA) Association [...] imaging tests). Lab Interpretation (test code = 98295-5) [facility] [id number] 00:42:34* Test Item Value Reference Range Interpretation Comme nts WBC (test code = 6690-2) See_Comment H [Automated [employer]] The system which generated this result transmitted reference range: 4.20 - 10.70 10*3/?L. The reference range was not used to interpret this result as normal/abnormal. RBC (test code = 789-8) See_Comment [Automated [employer]] The system which generated this result transmitted [...] 32.3 g/dL 31.2-35.0 RDW-SD (test code = 87484-8) 48.0 fL 38.5-51.6 RDW-CV (test code = 788-0) 15.5 % 12.1-15.4 H PLT (test code = 777-3) See_Comment [[employer]] The system which generated this result transmitted reference range: 150 - 328 10*3/?L. The reference range was not used to interpret this result as normal/abnormal. MPV (test code = 50699-8) 8.7 fL 9.8-13.0 L NRBC/100 WBC (test code = 7765460003) See_Comment [Automated [employer]] The system which generated this result transmitted reference range: 0.0 - 10.0 /100 WBCs. The reference range was not used to interpret this result as normal/abnormal. NRBC x10^3 (test code = 4824561948) <0.01 See_Comment [[employer]] The system which generated this result transmitted reference range: 10*3/?L. The reference range was not used to interpret this result as normal/abnormal. GRAN MAT (NEUT) % (test code = 770-8) 70.6 % IMM GRAN % (test code = 8806429541) 0.70 % LYMPH % (test code = 736-9) 17.7 % MONO % (test code = 5905-5) 8.2 % EOS % (test code = 713-8) 2.4 % BASO % (test code = 706-2) 0.4 % GRAN MAT x10^3(ANC) (test code = 9265498628) 8.91 10*3/uL 1.99-6.95 H IMM GRAN x10^3 (test code = 1584670117) 0.09 10*3/uL 0.00-0.06 H LYMPH x10^3 (test code = 731-0) 2.23 10*3/uL 1.09-3.23 MONO x10^3 (test code = 742-7) 1.04 10*3/uL 0.36-1.02 H EOS x10^3 (test code = 711-2) 0.30 10*3/uL 0.06-0.53 BASO x10^3 (test code = 704-7) 0.05 10*3/uL 0.01-0.09 Lab Interpretation (test code = 46508-1) Abnormal [facility] 02:22:00* Test Item Value Reference Range Interpretation Comme nts APPEARANCE (test code = 5180368329) Clear Clear COLOR (test code = 7987285314) Yellow Yellow PH (test code = 6942787694) 4.8-8.0 SP GRAVITY (test code = 4542754023) 1.003-1.030 GLU U QUAL (test code = 5437755800) 50 mg/dL Normal A BLOOD (test code = 9858663548) 1+ Negative A KETONES (test code = 8005259553) Negative Negative PROTEIN (test code = 2887-8) 30 mg/dL Negative A UROBILIN (test code = 7500745849) Normal Normal BILIRUBIN (test code = 6606184698) Negative Negative NITRITE (test code = 5156641987) Negative Negative LEUK YUMI (test code = 8284255052) Negative Negative RBC/HPF (test code = 1191166511) See_Comment [[employer]] The system which generated this result transmitted reference range: 0 - 3 HPF. The reference range was not used to interpret this result as normal/abnormal. WBC/HPF (test code = 3753185086) <1 See_Comment [[employer]] The system which generated this result transmitted reference range: 0 - 5 HPF. The reference range was not used to interpret this result as normal/abnormal. BACTERIA (test code = 4373092049) Negative Negative MUCOUS (test code = 6508459374) Slight Negative LPF A SQ EPITH (test code = 1234426061) <1 HPF Lab Interpretation (test code = 73594-9) Abnormal [facility] Notes Date/Time Note Provider Source 2024-11-03 15:00:00 ASSESSMENT SUMMARY YOLI PLASENCIA is a 74 year old man seen today by [facility] for a [facility] Visit. Members Preferred Language Marshallese DIAGNOSIS QOYMPKPD77.9 - Acute kidney failure, frndkovtsslG29.9 - Heart failure, kcrcfxzlalmU49.69 - Type 2 diabetes mellitus with other specified complication GENERAL ASSESSMENT* Feet: 5 Inches: 10 WEIGHT (pounds): 202 <hr> BODY MEASUREMENTS:<em>Patient Height in centimeters</em>: 177.80<em>Patient Weight in kilograms</em>: 91.63<em>Patient Body Mass Index</em>: 28.98 Systolic Blood Pressure: 117 Diastolic Blood Pressure: 67 Pulse: 77 HISTORY OF PRESENT ILLNESS Summary of the hospitalization and the patient's ongoing clinical needs: This patient was seen today for a SUJATA visit. <hr> Hospital Summary:Admitting DX: Hyperkalemia Admission dates: 10/09/2024 - 10/12/2024 Hospital/facility: [facility] records reviewed. Hospitalization Chart Review: See below. Reason for Hospitalization: Patient presented to clinic with critically high potassium level of 6.2 mmol/L and was sent to emergency department for evaluation. Hospital Course: On 10/08/2024, patient was found to have critically high potassium of 6.2 mmol/L, elevated BUN of 91, creatinine of 2.31, and low sodium of 130. He was sent to [facility] for evaluation. During hospitalization, he was treated for hyperkalemia and acute kidney injury. His medications were adjusted, including stopping spironolactone and starting Entresto. He was discharged on 10/12/2024. Active Problem List: Hyperkalemia - Treated with medication adjustments, stopping spironolactone Acute kidney injury on chronic kidney disease - Creatinine improved from 2.31 to 2.0, eGFR 29-34 Congestive heart failure - Started on Entresto, continued furosemide Type 2 diabetes mellitus - Uncontrolled with glucose 239, A1c 7.0%, started on Ozempic and Jardiance Gout - Continued on allopurinol Chronic Problem List: Benign prostatic hyperplasia Chronic dermatitis Hyperlipidemia History of rotator cuff repairs Tobacco dependence in remission Discharge Disposition: Home <hr> Current Medication List:ALBUTEROL SULFATE HFA 108 (90 BASE) MCG/ACT AEROSOL SOLN / as needed ALLOPURINOL 100 MG TABLET / take 1 tablet by mouth once daily ATORVASTATIN CALCIUM 20 MG TABLET / take 1 tablet by mouth once daily [facility] LANCETS MICRO THIN 33G MISC / use daily to check blood sugar ENTRESTO 24-26 MG TABLET / take 1 tablet by mouth twice daily FUROSEMIDE 20 MG TABLET / take 1 tablet by mouth once daily GLUCOSE METER TEST STRIP / use daily to check blood sugar JARDIANCE 25 MG TABLET / take 1 tablet by mouth once daily METOPROLOL SUCCINATE ER 25 MG TABLET ER 24 HR / take 1 tablet by mouth once daily ONETOHaversackIO FLEX SYSTEM W/DEVICE KIT / use daily to check blood sugar OZEMPIC (0.25 OR 0.5 MG/DOSE) 2 MG/1.5ML SOLN PEN INJ / injection once a week <hr> TODAY'S VISIT DATE 11/03/2024: -Subjective: Patient being evaluated for post-hospital transitional care visit. Patient reports he has only 30% use of kidney function after an anaphylactic reaction to Bactrim earlier this year. This admission, he was sent to ED from PCP's office due to hyperkalemia (K: 6.2). Spironolactone was d/c, and Jardiance, Entresto, and Ozempic started. He was able to get all medications thought the [facility] Today he reports feeling well overall. He reports he is very active in his care, he checks his weight daily and BP, BG multiple times a day. He has been working on lifestyle modifications and diet, he has lost about 50 lbs and wants to lose 25 more. Since discharge he completed lab work and saw Supply Teacher end of August, and has new orders for blood work and another Nephrology follow up around (he needs to confirm date, but reports appointment and labs are scheduled). Reports he is back to his usual level of activity. He would benefit from a shower chair, as he does report sometimes losing balance in the shower. He also reports he needs a referral for a Medication Administration Professional, Dr. Brito, because the [facility] will only refer him to a provider over 70 miles away.Objective:Vitals: Ht; 5'10", Wt: 202.3 lbs, 117/67, HR: 77, BPhysical Exam: See below <hr> FOLLOW UP APPOINTMENTS:PCP: Dr. Nassar, had follow up about 2 weeks agoNephrologist: seen and did labs on 10/26/2024, will go back on 11/23/2024, with labs a week before. 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 Needs a shower chair as IS MEDICALLY NECESSARY FOR PATIENT'S CARE [facility] Referrals:Patient being enrolled in [facility] [place] [place] transportation, med costs, ADLs Mostly independent. assists. Counseled on most likely causes for readmission based on clinical picture. Contingency plans discussed. Top 3 Most Likely Causes of Readmission: Worsening hyperkalemia/renal function (90%) - Given recent ANA and history of CKD Heart failure exacerbation (80%) - Recent medication changes including new Entresto Complications of diabetes mellitus (70%) - Uncontrolled glucose and new diabetes medications started <hr> PLAN- See below - [facility] with any additional questions or concerns. HPI Completed: Yes PHYSICAL EXAM Constitutional Physical Exam Notes: Alert, oriented, speaking in full sentences. Pleasant male in no acute distress. Neurologic Physical Exam Notes: Engaged in visit, asking and answering questions coherently. Pulmonary Physical Exam Notes: Some sporadic coughing during visit, however no increased work of breathing, shortness of breath during visit. COMMON DIAGNOSES Dx: N17.9 - Acute kidney failure, unspecified Additional Diagnosis Notes: Patient reports he has only 30% use of kidney function after an anaphylactic reaction to Bactrim earlier this year. This admission, he was sent to ED from PCP's office due to hyperkalemia (K: 6.2). He has already seen Nephrology two weeks ago, and has another follow up with labs in a week. Cr: 2.0, eGFR: 35, K: 4.7 on discharge. Stop Spironolactone. Continue Furosemide, Jardiance, Entresto, and Ozempic. He was able to get all medications thought the [facility] Nephrology follow up: Seen and did labs on 10/26/2024, go back on 11/23/2024, with labs a week before. Continue daily weights checks, and BP and BG twice a day. Continue lifestyle modifications and diet. Red flags shortness of breath, chest pain, cough, palpitations, edema, fatigue, dizziness, headache, abdominal pain/cramping, N/V/D, urinary s/s, or fever discussed and patient is aware to contact Care On demand if there are any symptom changes, symptoms not improving, or if additional questions or concerns arise. Dx: I50.9 - Heart failure, unspecified Additional Diagnosis Notes: Patient very disciplined with daily weights and checking vital signs. Reports compliance with meds. Continue Furosemide, Jardiance, Entresto, and Ozempic. Patient reports he needs a referral for a Medication Administration Professional, Dr. Brito, because the [facility] will only refer him to a provider over 70 miles away. Referral for Cards sent today. Continue PCP and Cardiology follow up. Red flags shortness of breath, chest pain, cough, palpitations, edema, fatigue, dizziness, headache, abdominal pain/cramping, N/V/D, urinary s/s, or fever discussed and patient is aware to contact Care On demand if there are any symptom changes, symptoms not improving, or if additional questions or concerns arise. Dx: E11.69 - Type 2 diabetes mellitus with other specified complication Additional Diagnosis Notes: DM II with hyperlipidemia, on a statin. A1c 7.0 on 10/08/2024. Continue Jardiance and Ozempic. Continue lifestyle modifications and diabetic diet. Patient has lost about 50 lbs and wants to lose 25 more. Red flags shortness of breath, chest pain, cough, palpitations, edema, fatigue, dizziness, headache, abdominal pain/cramping, N/V/D, urinary s/s, or fever discussed and patient is aware to contact Care On demand if there are any symptom changes, symptoms not improving, or if additional questions or concerns arise. CONDITION DETAIL SUMMARY Section Completed: Yes 2024 APPOINTMENT CPT CODE Please indicate how this visit was conducted: Video Please record the total amount of time you spent on this patient visit- Total time includes time spent on preparation, speaking with the patient, documentation, and post-visit coordination of care - This is limited to time spent ON THE DATE OF SERVICE (e.g. does not include time spent on days prior to or after the date of service) 40 or more minutes Did you review the patient's prescription and non-prescription drugs, vitamins, herbal remedies, and other supplements, AND is the accompanying medication list documented in the medical record?: Yes Has the patient been discharged within the last 30 days?: Yes Did you complete a medication reconciliation of the patient's discharge medications and current medications?: Yes Tara De La Rosa [facility] 2024-11-01 15:18:00 Reason For Action: Medication Refill Notes: 74 y/o male with t2DM. Case created for COD for test strips refills. Pt was called 2 times but did not answer. Glucometer and testing supplies will be sent to preferred pharmacy. no patient visit today, as the pt is established. Labs reviews which confirms T2DM: a1C 7.0% 10/08/24 Kristen Aaron [facility] 2024-10-29 15:00:00 ASSESSMENT SUMMARY YOLI PLASENCIA is a 74 year old man seen today by [facility] for a [facility] Visit. DEVOTED: (Actions completed today and next steps): [facility] to follow-up annually and as needed. PATIENT'S NEXT STEPS: Follow up with PCP for annual wellness, ongoing medical management and lab monitoring. Members Preferred Language Marshallese Patient Currently Located in their home state of [place], YES DIAGNOSIS [id number] - Heart failure, dzehqinhvzlY71.32 - Chronic kidney disease, stage 3bF17.211 - Nicotine dependence, cigarettes, in aouenaukrF70.9 - Chronic obstructive pulmonary disease, xhvnalhiydzU61.22 - Type 2 diabetes mellitus with diabetic chronic kidney ecukpogU71.0 - Hypertensive heart and chronic kidney disease with heart failure and stage 1 through stage 4 chronic kidney disease, or unspecified chronic kidney disease Please indicate how this visit was conducted?: Video VISIT PURPOSE, PATIENT'S GOALS, & AGENDA SETTING Annual Wellness Visit with PCP completed this year?: AWV already completed Today's Member Goals: Wants to go back to work MEDICATION RECONCILIATION Did you review the patient's prescription and non-prescription drugs, vitamins, herbal remedies, and other supplements, AND is the accompanying medication list documented in the medical record?: Yes GENERAL ASSESSMENT* Feet: 5 Inches: 10 WEIGHT (pounds): 203 <hr> BODY MEASUREMENTS:<em>Patient Height in centimeters</em>: 177.80<em>Patient Weight in kilograms</em>: 92.08<em>Patient Body Mass Index</em>: 29.12 Systolic Blood Pressure: 127 Diastolic Blood Pressure: 56 Pulse: 84 O2 Saturation: 95 Supplemental oxygen status: Nasal [place] Liters of O2 / min: 2 Supplemental Oxygen Needs: Supplemental oxygen as needed In general, would you say your quality of life is: Good How would you rate your pain on average? (0 = No Pain, 10 = Worst Imaginable Pain): 5 Physical activity level during a typical week: Works General Assessment Notes: Hospitalized X 3 Blood sugar 26 CHF ( Fluid accumulation, SOB) 255 lb when entered Hospital Potassium was high Follow up with [facility] specialist Referral to Medication Administration Professional (Daryl Toribio) Blood sugar 117 this AM 95% on RA 127/56 HR 85 SUBSTANCE USE - Smoking History History of cigarette use: Yes Cigarette smoking status: Former Smoker Quit date: 40 years ago. Packs / day: 1 Duration (years): 12 DISCUSSED: For men 65 - 75, counseled the patient on the importance of AAA screening due to elevated risk from smoking history Dx: F17.211 - Nicotine dependence, cigarettes, in remission Notes for F17.211: Nicotine dependence cigarettes in remission. Continue smoking cessation. Education on smoking effects. Continue with smoking cessation. SCREENING - Fall Risk Have you fallen in the past year?: No Do you feel unsteady when standing or walking?: No SCREENING - DME & Home Health Does the patient use any durable medical equpiment?: Yes Walker: Yes Does the patient use home health, physical therapy or residential services?: No New orders, referrals, or any other assistance with DME or home health needed at this time?: No GENERAL REVIEW OF SYSTEMS HEENT Symptoms Notes: Eye exam Chest Pain or Pressure: Yes Shortness of Breath at Rest or with Exertion: Yes Lower Extremity Edema: Yes Cardiovascular Symptoms Notes: Hospital Cough: Yes Pulmonary Symptoms Notes: started 2 days ago Joint Pain / Swelling: Yes MSK Symptoms Notes: knees Review of systems negative unless otherwise indicated above: Yes PULMONARY - Chronic Lung Disease COPD: Yes Dx: J44.9 - Chronic obstructive pulmonary disease, unspecified Notes for J44.9: COPD Medication: Albuterol Intermittent oxygen as needed Intermittent SOB and Cough Continue current medical regimen. Identify signs and symptoms of progressing symptoms. Educated on physical exercise. Continue to follow up with PCP.DISCUSSED: Counseling on benefits of abstaining from smokingACTION: Confirm that the patient is prescribed inhaled bronchodilators CARDIOVASCULAR - Heart Failure, Pulmonary Hypertension, and Cardiomyopathy Previously diagnosed with heart failure?: Yes Dx: I50.9 - Heart failure, unspecified Notes for I50.9: Heart failure Medication: Metoprolol, Entresto, Furosemide, Intermittent SOB, Cough, edema Educated on lifestyle modifications to control BP including a heart healthy, low salt, diet and regular exercise. Educated on progressive symptoms. Continue to follow up with PCP for ongoing management of health care.DISCUSSED: Discuss the role of goal directed medical therapyDISCUSSED: Discuss taking supervisor tank house weights and calling their doctors if weight increases > 2 lbs in 1 day or > 5 lbs in 5 days CARDIOVASCULAR - Coronary Artery Disease/Angina Previously recorded diagnosis of coronary artery disease?: No Previously recorded diagnosis of angina?: No Does the patient currently take isosorbide mononitrate, isosorbide dinitrate, or ranexa for treatment of angina?: No Has the member had SYMPTOMATIC angina within the PAST 12 MONTHS?: No RENAL - Chronic Kidney Disease Does patient carry a diagnosis of chronic kidney disease?: Yes Dx: N18.32 - Chronic kidney disease, stage 3b Notes for N18.32: Chronic kidney disease stage 3b GFR 35 ml/min/1.73m2 10/14/2024 GFR 32 ml/min/1.73m2 04/25/2024 Pt. denies pain, low urine volume, hematuria. Pt. Will continue blood pressure and blood glucose control. Continue to monitor for changes and follow with lab monitoring and follow up with PCP for ongoing management.ACTION: Confirm that the patient is on an NARESH inhibitor or ARBACTION: Discuss with the patient that referral to a booking police officer is needed if the patient progresses to CKD Stage 4 (eGFR < 30) ⭐ENDOCRINE - Diabetes (A1c + Eye + Kidney) Diabetes Diagnosis: Type 2 ENDOCRINE - Diabetes Diabetes Diagnosis: Type 2 Most recent Hg A1c value: 7 Date of Hg a1c value: 2024-10-08 Statin status: Already on a statin regimen Have a glucose monitor?: Yes The patient has the following medical complication secondary to diabetes: Chronic Kidney Disease with GFR < 90: Yes Taking an an NARESH inhibitor or ARB?: Yes Dx: E11 - Type 2 diabetes mellitus with diabetic chronic kidney disease Notes for : Diabetes HbA1c (Bld) [Mass fraction] [4548-4]7.0 10/08/2024 GFR 35 ml/min/1.73m2 10/14/2024 GFR 32 ml/min/1.73m2 04/25/2024 Medication: Jeremías Haines Educated on diet that is low in carbohydrates, drinks with added sugar, Add in diet fruits and vegetables, whole grains, proteins. Continue physical activity as tolerated daily. Continue with current medical regimen. Continue to monitor for any changes in condition and labs. Continue to follow up with PCP for ongoing management and follow up. DISCUSSED: Counseled patient on moderate exercise and increasing vegetable intake ACTION: Confirm retinopathy screen every 2 years COMMON DIAGNOSES The patient has a diagnosis of hypertension: Yes In addition to hypertension, the patient has the following condition(s): CHF + CKD Stage 1-4 Dx: I13.0 - Hypertensive heart and chronic kidney disease with heart failure and stage 1 through stage 4 chronic kidney disease, or unspecified chronic kidney disease Notes for I13.0: Hypertensive heart disease CKD, CHF Medication: Atorvastatin, Entresto, Furosemide GFR 35 ml/min/1.73m2 10/14/2024 GFR 32 ml/min/1.73m2 04/25/2024 Intermittent SOB and Cogh, Edema. Education and Reinforced lifestyle modifications to control BP including a heart healthy, low salt, diet and regular exercise , as tolerated, and weight loss. -Advised to record BP log and to take to next PCP visit along with BP monitor for comparison. -Notify PCP if BP consistently elevated, SBP >140 and DBP >90. Monitor for: Headaches, dizziness, visual changes, chest pain, or shortness of breath, decrease urine output. Monitor labs.DISCUSSED: Educated patient on lifestyle modifications such as diet and exercise to improve blood pressureDISCUSSED: Educated patient on importance of medication adherence for blood pressure control VISIT WRAP-UP Member medical history, medications, and most recent labs reviewed in [facility]. Discussed medication use and side effects with members prior to prescribing. Drug interactions reviewed: Yes 2024 APPOINTMENT CPT CODE Please indicate how this visit was conducted: Video Please select the video platform used during the visit: [facility] Video Room Please record the total amount of time you spent on this patient visit- Total time includes time spent on preparation, speaking with the patient, documentation, and post-visit coordination of care - This is limited to time spent ON THE DATE OF SERVICE (e.g. does not include time spent on days prior to or after the date of service) 30 - 44 minutes Nicol Aponte [facility]
--- NOTE | 2024-12-26 17:27 | ER ---
Nurse's Notes [facility] Name: Giovanni Lopez Age: 74 yrs Sex: Male : 1950 Arrival Date: 12/26/2024 Time: 17:05 Bed IW3 Private MD: Diagnosis: Encounter for removal of sutures Presentation: 12/26 17:15 Chief complaint: Patient states: RIGHT HAND SUTURE REMOVAL. Coronavirus screen: Client db denies travel out of the [place] in the last 14 days. At this time, the client does not indicate any symptoms associated with coronavirus-19. Ebola Screen: Patient negative for fever greater than or equal to 101.5 degrees Fahrenheit, and additional compatible Ebola Virus Disease symptoms Patient denies exposure to infectious person. Patient denies travel to an Ebola-affected area in the 21 days before illness onset. No symptoms or risks identified at this time. Initial Sepsis Screen: Does the patient meet any 2 criteria? No. Patient's initial sepsis screen is negative. Does the patient have a suspected source of infection? No. Patient's initial sepsis screen is negative. Risk Assessment: Do you want to hurt yourself or someone else? Patient reports no desire to harm self or others. Onset of symptoms was December 26, 2024. 17:15 Method Of Arrival: Ambulatory db 17:15 Acuity: SOBEIDA 5 db Triage Assessment: 17:16 General: Appears in no apparent distress. comfortable, Behavior is calm, cooperative. db Pain: Complains of pain in right hand. Neuro: Level of Consciousness is awake, alert, obeys commands, Oriented to person, place, time, situation. Historical: - Allergies: 17:16 HYDROCODONE; db 17:16 Sulfa (Sulfonamide Antibiotics); db 17:16 Trimethoprim-Sulfamethoxazole; db - PMHx: 17:16 CHF; diabetes mellitus; Gout; Hypertensive disorder; Hypercholesterolemia; db - Immunization history:: Adult Immunizations unknown. - Infectious Disease History:: Denies. - Social history:: Smoking status: unknown. Screenin:25 [facility] ED Fall Risk Assessment (Adult) History of falling in the last 3 months, db including since admission No falls in past 3 months (0 pts) Confusion or Disorientation No (0 pts) Intoxicated or Sedated No (0 pts) Impaired Gait No (0 pts) Mobility Assist Device Used No (0 pt) Altered Elimination No (0 pt) Score/Fall Risk Level 0 - 2 = Low Risk Oriented to surroundings, Maintained a safe environment. Abuse screen: Denies threats or abuse. Denies injuries from another. Nutritional screening: No deficits noted. Tuberculosis screening: No symptoms or risk factors identified. Assessment: 17:25 Reassessment: SEE TRIAGE. Derm: Derm: SUTURES TO RIGHT HAND. Musculoskeletal: db Vital Signs: 17:15 BP 120 / 72; Pulse 87; Resp 16; Temp 96.5; Pulse Ox 98% ; db ED Course: 17:09 Patient arrived in ED. al6 17:09 Nav [facility]. cp 17:09 Nav Rangel MD is Attending Physician. cp 17:16 Triage completed. db 17:17 Arm band placed on. db 17:25 Patient has correct armband on for positive identification. Provided Education on: db DISCHARGE. 17:25 Patient did not have IV access during this emergency room visit. Removal of Removed db sutures from right hand Suture site is well healed Patient tolerated well. Administered Medications: No medications were administered Medication: 17:25 VIS not applicable for this client. db Outcome: 17:25 Discharged to home ambulatory, with family, db 17:25 Condition: stable 17:25 Discharge instructions given to patient, Instructed on discharge instructions, follow up and referral plans. 17:27 Discharge ordered by . cp 17:28 Patient left the ED. db Signatures: Nav Hand PA-C PA-C cp Benton, Danielle, RN RN db [facility] al6
--- NOTE | 2024-12-26 17:27 | EDPHYS ---
Physician Documentation [facility] Name: Giovanni Lopez Age: 74 yrs Sex: Male : 1950 Arrival Date: 12/26/2024 Time: 17:05 Bed IW3 Private MD: ED Physician Nav Rangel HPI: 12/26 17:18 This 74 yrs old Male presents to ER via Ambulatory with complaints of Suture Removal. cp 17:18 The patient has sutures on the dorsal side of right hand. cp 17:19 Previous treatment: The patient was initially treated on December 14, 2024, the care cp was rendered at [facility], Treatment type: The patient's original treatment included sutures. Sutures/farrah progress: The patient has no c/o's. The wound is well-healing with no redness, swelling, discharge, or dehiscence reported. Historical: - Allergies: 17:16 HYDROCODONE; db 17:16 Sulfa (Sulfonamide Antibiotics); db 17:16 Trimethoprim-Sulfamethoxazole; db - PMHx: 17:16 CHF; diabetes mellitus; Gout; Hypertensive disorder; Hypercholesterolemia; db - Immunization history:: Adult Immunizations unknown. - Infectious Disease History:: Denies. - Social history:: Smoking status: unknown. ROS: 17:19 Constitutional: Negative for body aches, chills, fever, poor PO intake, cp 17:19 Cardiovascular: Negative for chest pain, palpitations, 17:19 Respiratory: Negative for cough, shortness of breath, wheezing, 17:19 Skin: Positive for of the dorsal side of right hand, history repaired lacerations, Exam: 17:21 Head/Face: Normocephalic, atraumatic. cp 17:21 Constitutional: The patient appears in no acute distress, alert, awake, comfortable, non-toxic, well developed, well nourished, 17:21 Musculoskeletal/extremity: repaired lacerations dorsal side of right hand appear to be cp well healed with no dehiscence, no erythema, no swelling and [address] 17:21 Chest/axilla: Inspection: normal, cp 17:21 Cardiovascular: Rate: normal, 17:21 Respiratory: the patient does not display signs of respiratory distress, Respirations: normal, no use of accessory muscles, no retractions, labored breathing, is not present, Breath sounds: are clear throughout, 17:21 Abdomen/GI: Inspection: abdomen appears normal, Vital Signs: 17:15 BP 120 / 72; Pulse 87; Resp 16; Temp 96.5; Pulse Ox 98% ; db Procedures: 17:30 Suture/Staple removal: Removed 3 sutures, from right hand, site appears well healed, cp Patient tolerated well, nursing staff removed sutures. MDM: 17:16 Medical Screening Exam initiated cp 17:27 Data reviewed: vital signs, nurses notes, and as a result, I will discharge patient. cp Administered Medications: No medications were administered Disposition Summary: 12/26/24 17:27 Discharge Ordered Notes: Location: Home cp Problem: new cp Symptoms: have improved cp Condition: Stable cp Diagnosis - Encounter for removal of sutures cp Followup: cp - With: Private Physician - When: 2 - 3 days - Reason: Worsening of condition Discharge Instructions: - Discharge Summary Sheet cp - How to Change Your Wound Dressing cp - Suture Removal, Care After cp Forms: - Medication Reconciliation Form cp - Antibiotic Education cp - Prescription Opioid Use cp - Patient Portal Instructions cp - Leadership Thank You Letter cp Signatures: Nav Hand PA-C PAAlicia Pizarro cp RN RN db Corrections: (The following items were deleted from the chart) 12/27 02:48 02:47 Suture/Staple removal: Removed 3 sutures, from right hand, site appears well cp healed, Patient tolerated well, nursing staff removed sutures. cp
[2024-12-26 17:44] VITALS: BP 120/72; TEMP 96.5; O2SAT 98
== END 2024-12-26 17:28 | disposition home or self-care (01) ==
LOC: ER 17:05
DX: Z48.02 Encounter for removal of sutures (principal)
CPT/HCPCS: 99281; 99283